=== PATIENT | female | born 1975 | race Caucasian/White ===

== ENCOUNTER → 2016-11-02 | Outpatient (CLI) | payer MEDICARE, OTHER ==
--- NOTE | 2016-11-03 11:45 | MM ---
Reason for exam: screening (asymptomatic). Last mammogram was performed 2 years and 11 months ago. History: Family history of breast cancer in mother and breast cancer in maternal grandmother. Took estrogen for 1 year. Physical Findings: A clinical breast exam by your physician is recommended on an annual basis and results should be correlated with mammographic findings. MG Screening Mammo w CAD Bilateral CC and MLO view(s) were taken. Prior study comparison: December 03, 2013, mammogram, performed at [facility]. September 17, 2009, mammogram, performed at [facility]. No significant changes when compared with prior studies. ASSESSMENT: Benign, BI-RAD 2 RECOMMENDATION: Routine screening mammogram of both breasts in 1 year.
== END | disposition home or self-care (01) ==
LOC: RADMAMWWP 16:35
PROVIDERS: ATTEND Obstetrics & Gynecology
DX: Z12.31 Encounter for screening mammogram for malignant neoplasm of breast (principal)

== ENCOUNTER → 2017-02-23 | Outpatient (CLI) | payer MEDICARE ==
--- NOTE | 2017-02-23 17:16 | XR ---
EXAMINATION TYPE: XR KUB DATE OF EXAM: 02/23/2017 CLINICAL DATA: 41-year-old female hydronephrosis left-sided ureteral/renal stone., [facility] COMPARISON: 08/24/2013 FINDINGS: There is a 1 cm calcific density projecting at the left paramedian mid abdomen at the L3 level which appears to have been present in 2013 as well. This could represent a persisting or new calcification. Phlebolith within the right hemipelvis. Nonobstructive bowel gas pattern. IMPRESSION: A 1 cm calcification in the left midabdomen appears to have been present in 2013 as well. Exact etiol ogy unclear. Recurrent left ureteral calculus versus other nonspecific calcification are possible.
== END ==
LOC: RADXRMAIN 15:12
PROVIDERS: ATTEND Urology
DX: N13.2 Hydronephrosis with renal and ureteral calculous obstruction (principal)
CPT/HCPCS: 74000

== ENCOUNTER 2017-03-07 20:10 | Emergency (ER) | payer MEDICARE ==
[2017-03-07] MEDS ORDERED: HYDROmorphone 1 MG/ML 1 ML SYRINGE IVP STA ×2 (20:27→22:15)
[2017-03-07] MEDS ORDERED: ONDANSETRON 4 MG/2 ML VIAL IVP STA (20:27)
[2017-03-07] MEDS ORDERED: SODIUM CHLORIDE 0.9% 1,000 ML IV STA (20:27)
[2017-03-07] MEDS ORDERED: KETOROLAC 30 MG/ML 1 ML VIAL IVP STA (20:27)
[2017-03-07 21:19] LABS: Basophils # (A) 0.1 k/uL (0-0.2); Basophils % (A) 1 %; CH 32.2; CHCM 35.2; Eosinophils # (A) 0.5 k/uL (0-0.7); Eosinophils % (A) 6 %; HCT 41.7 % (34.0-46.0); HDW 2.23; Luc # (Auto) 0.15; Luc % (Auto) 2; Lymphocytes # (A) 1.8 k/uL (1.0-4.8); Lymphocytes % (A) 20 %; MCH 33.1 pg (25.0-35.0); Mean Platelet Volume 7.7; Monocytes # (A) 0.6 k/uL (0-1.0); Monocytes % (A) 7 %; Neutrophils # (A) 5.7 k/uL (1.3-7.7); Neutrophils % (A) 65 %; RBC 4.54 m/uL (3.80-5.40); RDW 12.4 % (11.5-15.5); WBC 8.8 k/uL (3.8-10.6); WBC (Perox) 7.95
[2017-03-07 21:20] LABS: Appearance,Urine Clear (Clear); Bilirubin,Urine Negative (Negative); Glucose,Urine (UA) Negative (Negative); Ketones,Urine Negative (Negative); Leukocyte Esterase,Urine Negative (Negative); Nitrite,Urine Negative (Negative); Protein,Urine Negative (Negative); Specific Gravity,Urine 1.001 (1.001-1.035); UA Billing (MACRO vs. MICRO) CHEM; Urobilinogen,Urine <2.0 mg/dL (<2.0)
[2017-03-07 21:34] LABS: ALT 34 U/L (9-52); AST 29 U/L (14-36); Alkaline Phosphatase 74 U/L (38-126); Amylase 92 U/L (30-110); Anion Gap 13 mmol/L; Blood Urea Nitrogen 16 mg/dL (7-17); Carbon Dioxide 27 mmol/L (22-30); Chloride 98 mmol/L (98-107); Glucose 84 mg/dL (74-99); Non-African American GFR(MDRD) >60 (>60 ml/min/1.73 sqM); Potassium 4.2 mmol/L (3.5-5.1); Sodium 138 mmol/L (137-145); Total Bilirubin 0.3 mg/dL (0.2-1.3); Total Protein 7.8 g/dL (6.3-8.2)
--- NOTE | 2017-03-07 21:59 | ED ---
Abdominal Pain HPI - General Chief Complaint: Abdominal Pain Stated Complaint: Poss kidney stone Time Seen by Provider: 03/07/17 20:26 Source: patient, RN notes reviewed Mode of arrival: ambulatory Limitations: no limitations - History of Present Illness Initial Comments: 41-year-old female presented emergency department with chief complaint of left flank pain, mid abdominal pain. Patient states started last few days. She has had some nausea vomiting. Denies any diarrhea, constipation, fever, chills. She has had a history of kidney stones but this feels different. Patient denies any chest pain or shortness of breath. She states nothing seems to make the pains feel better or worse. - Related Data Home Medications Medication Instructions Recorded Confirmed DULoxetine HCL [Cymbalta] 90 mg PO DAILY 10/23/15 03/07/17 Ibuprofen [Motrin] 600 mg PO Q6HR PRN 10/23/15 03/07/17 Leflunomide [Arava] 20 mg PO DAILY 10/23/15 03/07/17 Levothyroxine Sodium [Synthroid] 50 mcg PO DAILY 10/23/15 03/07/17 Pnv,Calcium 72/Iron/Folic Acid 1 tab PO DAILY 10/23/15 03/07/17 [ Plus Tablet] Zolpidem [Ambien] 10 mg PO HS PRN 10/23/15 03/07/17 Chlorzoxazone 500 mg PO DAILY 03/07/17 03/07/17 Hydroxychloroquine Sulfate 200 mg PO BID 03/07/17 03/07/17 [Plaquenil] Loratadine [Claritin] 10 mg PO DAILY 03/07/17 03/07/17 Previous Rx's Medication Instructions Recorded Hydrocodone/Acetaminophen [[place] 1 tab PO Q6HR PRN #20 tab 03/07/17 5-325] Allergies Allergy/AdvReac Type Severity Reaction Status Date / Time codeine Allergy Chest Verified 03/07/17 20:22 Pain, dyspnea,hives Iodinated Contrast Media - Allergy flushed,hot Verified 03/07/17 20:22 Oral and ,nauseated [Iodinated Contrast Media - IV Dye] Review of Systems ROS Statement: Those systems with pertinent positive or pertinent negative responses have been documented in the HPI. ROS Other: All systems not noted in ROS Statement are negative. Past Medical History Past Medical History: Fibromyalgia, Rheumatoid Arthritis (RA) Additional Past Medical History / Comment(s): hx kidney stones History of Any Multi-Drug Resistant Organisms: None Reported Past Surgical History: Ablation Additional Past Surgical History / Comment(s): uterine ablation Past Psychological History: No Psychological Hx Reported Smoking Status: Current every day smoker Past Alcohol Use History: None Reported Past Drug Use History: None Reported General Exam Limitations: no limitations General appearance: alert, in no apparent distress Neck exam: Present: normal inspection. Absent: tenderness, meningismus, lymphadenopathy Respiratory exam: Present: normal lung sounds bilaterally. Absent: respiratory distress, wheezes, rales, rhonchi, stridor Cardiovascular Exam: Present: normal rhythm, tachycardia, normal heart sounds. Absent: systolic murmur, diastolic murmur, rubs, gallop, clicks GI/Abdominal exam: Present: soft, tenderness (Moderate midabdominal tenderness, left-sided abdominal tenderness), normal bowel sounds. Absent: distended, guarding, rebound, rigid Back exam: Absent: CVA tenderness (R), CVA tenderness (L) Neurological exam: Present: alert, oriented X3, CN II-XII intact Skin exam: Present: warm, dry, intact, normal color. Absent: rash Course Vital Signs 03/07/17 03/07/17 20:19 21:42 Temperature 98.4 F 97.9 F Pulse Rate 106 H 91 Respiratory 18 18 Rate Blood Pressure 133/97 114/64 O2 Sat by Pulse 97 95 Oximetry Medical Decision Making - Medical Decision Making 41-year-old female presented emergency department for left flank pain. Patient does have a left proximal ureter which is 1 cm. Patient does have urologist. Patient be discharged with pain medication. She is advised to call him in the morning for close follow-up as she most likely needs lithotripsy. Patient agrees this plan. Patient has improved after pain medication. - Lab Data Result diagrams: 03/07/17 20:58 03/07/17 20:58 Lab Results 03/07/17 03/07/17 03/07/17 Range/Units 20:58 20:58 20:58 WBC 8.8 (3.8-10.6) k/uL RBC 4.54 (3.80-5.40) m/uL Hgb 15.0 (11.4-16.0) gm/dL Hct 41.7 (34.0-46.0) % MCV 92.0 (80.0-100.0) fL MCH 33.1 (25.0-35.0) pg MCHC 36.0 (31.0-37.0) g/dL RDW 12.4 (11.5-15.5) % Plt Count 302 (150-450) k/uL Neutrophils % 65 % Lymphocytes % 20 % Monocytes % 7 % Eosinophils % 6 % Basophils % 1 % Neutrophils # 5.7 (1.3-7.7) k/uL Lymphocytes # 1.8 (1.0-4.8) k/uL Monocytes # 0.6 (0-1.0) k/uL Eosinophils # 0.5 (0-0.7) k/uL Basophils # 0.1 (0-0.2) k/uL Sodium 138 (137-145) mmol/L Potassium 4.2 (3.5-5.1) mmol/L Chloride 98 (98-107) mmol/L Carbon Dioxide 27 (22-30) mmol/L Anion Gap 13 mmol/L BUN 16 (7-17) mg/dL Creatinine 0.71 (0.52-1.04) mg/dL Est GFR (MDRD) Af Amer >60 (>60 ml/min/1.73 sqM) Est GFR (MDRD) Non-Af >60 (>60 ml/min/1.73 sqM) Glucose 84 (74-99) mg/dL Calcium 10.0 (8.4-10.2) mg/dL Total Bilirubin 0.3 (0.2-1.3) mg/dL AST 29 (14-36) U/L ALT 34 (9-52) U/L Alkaline Phosphatase 74 (38-126) U/L Total Protein 7.8 (6.3-8.2) g/dL Albumin 4.7 (3.5-5.0) g/dL Amylase 92 (30-110) U/L Lipase 377 H (23-300) U/L Urine Color Urine Appearance (Clear) Urine pH (5.0-8.0) Ur Specific [place] (1.001-1.035) Urine Protein (Negative) Urine Glucose (UA) (Negative) Urine Ketones (Negative) Urine Blood (Negative) Urine Nitrite (Negative) Urine Bilirubin (Negative) Urine Urobilinogen (<2.0) mg/dL Ur Leukocyte Esterase (Negative) Urine HCG, Qual Not Detected (Not Detectd) 03/07/17 Range/Units 20:58 WBC (3.8-10.6) k/uL RBC (3.80-5.40) m/uL Hgb (11.4-16.0) gm/dL Hct (34.0-46.0) % MCV (80.0-100.0) fL MCH (25.0-35.0) pg MCHC (31.0-37.0) g/dL RDW (11.5-15.5) % Plt Count (150-450) k/uL Neutrophils % % Lymphocytes % % Monocytes % % Eosinophils % % Basophils % % Neutrophils # (1.3-7.7) k/uL Lymphocytes # (1.0-4.8) k/uL Monocytes # (0-1.0) k/uL Eosinophils # (0-0.7) k/uL Basophils # (0-0.2) k/uL Sodium (137-145) mmol/L Potassium (3.5-5.1) mmol/L Chloride (98-107) mmol/L Carbon Dioxide (22-30) mmol/L Anion Gap mmol/L BUN (7-17) mg/dL Creatinine (0.52-1.04) mg/dL Est GFR (MDRD) Af Amer (>60 ml/min/1.73 sqM) Est GFR (MDRD) Non-Af (>60 ml/min/1.73 sqM) Glucose (74-99) mg/dL Calcium (8.4-10.2) mg/dL Total Bilirubin (0.2-1.3) mg/dL AST (14-36) U/L ALT (9-52) U/L Alkaline Phosphatase (38-126) U/L Total Protein (6.3-8.2) g/dL Albumin (3.5-5.0) g/dL Amylase (30-110) U/L Lipase (23-300) U/L Urine Color Colorless Urine Appearance Clear (Clear) Urine pH 7.0 (5.0-8.0) Ur Specific [place] 1.001 (1.001-1.035) Urine Protein Negative (Negative) Urine Glucose (UA) Negative (Negative) Urine Ketones Negative (Negative) Urine Blood Negative (Negative) Urine Nitrite Negative (Negative) Urine Bilirubin Negative (Negative) Urine Urobilinogen <2.0 (<2.0) mg/dL Ur Leukocyte Esterase Negative (Negative) Urine HCG, Qual (Not Detectd) Disposition Clinical Impression: Left flank pain, Ureteral calculi Disposition: HOME SELF-CARE Condition: Stable Instructions: Kidney Stones (ED) Additional Instructions: Please return to the Emergency Department if symptoms worsen or any other concerns. Prescriptions: Hydrocodone/Acetaminophen [[place] 5-325] 1 tab PO Q6HR PRN #20 tab PRN Reason: Pain Referrals: María Elena Dunham MD [Primary Care Provider] - 1-2 days David Teixeira MD [STAFF PHYSICIAN] - 1-2 days Time of Disposition: 22:38
--- NOTE | 2017-03-07 22:13 | CT ---
EXAMINATION TYPE: CT abdomen pelvis wo con DATE OF EXAM: 03/07/2017 COMPARISON: NONE HISTORY: LEFT FLANK PAIN. CT DLP: 718.4 mGycm Automated exposure control for dose reduction was used. TECHNIQUE: Helical acquisition of images from the lung bases through the pelvis. FINDINGS: LUNG BASES: No significant abnormality is appreciated. AORTA: No significant abnormality is appreciated. LIVER/GB: No significant abnormality is appreciated. PANCREAS: No significant abnormality is seen. SPLEEN: No significant abnormality is seen. ADRENALS: No significant abnormality is seen. KIDNEYS: Proximal left ureteral calculus is present measuring approximately 13 by 10 mm in size. Mild dilation of the left renal collecting system. REPRODUCTIVE ORGANS: No significant abnormality is seen. URINARY BLADDER: No significant abnormality is seen. BOWEL: No significant abnormality is seen. FREE AIR: No Free Air is visible. ASCITES: None visible. PELVIC ADENOPATHY: None visualized. RETROPERITONEAL ADENOPATHY: No Retroperitoneal Adenopathy visible. OSSEOUS STRUCTURES: No significant abnormality is seen. IMPRESSION: PROXIMAL LEFT URETERAL CALCULUS DESCRIBED. MILD HYDRONEPHROSIS. NONCONTRAST EXAM MAY LIMIT THE SEN SITIVITY OF THE EXAM.
[2017-03-07 22:37] VITALS: BP 138/65; PULSE 85; RESP 19; TEMP 97.4
== END 2017-03-07 22:53 | disposition home or self-care (01) ==
LOC: EC 20:10
DX: N20.1 Calculus of ureter (principal); R00.0 Tachycardia, unspecified; R11.2 Nausea with vomiting, unspecified; M79.7 Fibromyalgia; M06.9 Rheumatoid arthritis, unspecified; F17.200 Nicotine dependence, unspecified, uncomplicated; Z79.899 Other long term (current) drug therapy; Z88.5 Allergy status to narcotic agent; Z91.041 Radiographic dye allergy status
CPT/HCPCS: 36415; 80053; 82150; 83690; 85025; 81003; 81025; 74176; 99284; 96374; 96375 ×2; 96376; 96361 ×2; J2405; J1885; J1170

== ENCOUNTER → 2017-04-27 | Outpatient (CLI) | payer MEDICARE ==
--- NOTE | 2017-04-28 10:27 | US ---
EXAMINATION TYPE: US kidneys/renal and bladder DATE OF EXAM: 04/27/2017 COMPARISON: CT 2017 CLINICAL HISTORY: R93.4 Hx of Kidney Stones. Pt had left calculi removed February or march 2017 EXAM MEASUREMENTS: Right Kidney: 11.0 x 4.3 x 4.1 cm Left Kidney: 10.8 x 4.4 x 4.2 cm Post Void Residual Volume: 9.2 mL Right Kidney: No hydronephrosis or masses seen Left Kidney: No hydronephrosis or masses seen Bladder: wnl Bilateral Jets seen: Yes Normal Post Void Residual: Yes Urinary bladder is sonolucent. Posterior wall is normal. IMPRESSION: 1. Unremarkable renal ultrasound
== END | disposition home or self-care (01) ==
LOC: RADUSWWP 15:35
PROVIDERS: ATTEND Urology
DX: Z09 Encounter for follow-up examination after completed treatment for conditions other than malignant neoplasm (principal); Z87.448 Personal history of other diseases of urinary system
CPT/HCPCS: 76770

== ENCOUNTER → 2017-09-01 | Outpatient (CLI) | payer MEDICARE | END | disposition home or self-care (01) | LOC: MMGSC 11:56 | PROVIDERS: ATTEND Family Medicine | DX: J32.9 Chronic sinusitis, unspecified (principal) | CPT/HCPCS: 87070 ==

== ENCOUNTER → 2017-09-26 | Outpatient (CLI) | payer MEDICARE ==
--- NOTE | 2017-09-26 18:13 | CT ---
EXAMINATION TYPE: CT sinus wo con DATE OF EXAM: 09/26/2017 COMPARISON: NONE HISTORY: Sinus infections x [address] DLP: 593.6 mGycm. Automated Exposure Control for Dose Reduction was Utilized. TECHNIQUE: CT scan of the sinuses is performed without contrast, axial images are obtained, coronal r eformatted images are also reviewed. FINDINGS: There is bilateral patency of the ostiomeatal complex. There is minimal mucosal thickening in the ethmoid sinus. There is no evidence of an orbital mass. Orbital margins are intact. The maxill a is intact. Maxillary sinuses appear normal. Sphenoid sinus appears normal. The maxilla is intact. F rontal sinuses appear normal. CONCLUSION: There is mild ethmoid sinusitis. Otherwise negative exam.
== END | disposition home or self-care (01) ==
LOC: RADCTMAIN 17:45
PROVIDERS: ATTEND Otolaryngology
DX: J32.2 Chronic ethmoidal sinusitis (principal)
CPT/HCPCS: 70486

== ENCOUNTER 2017-12-08 20:28 | Emergency (ER) | payer MEDICARE ==
[2017-12-08] MEDS ORDERED: MORPHINE SULFATE 4MG/4ML SYRG IV STA (20:50)
[2017-12-08] MEDS ORDERED: SODIUM CHLORIDE 0.9% 1,000 ML IV STA (20:50)
[2017-12-08] MEDS ORDERED: ONDANSETRON 4 MG/2 ML VIAL IVP STA (20:50)
[2017-12-08 21:21] LABS: Appearance,Urine Clear (Clear); Bilirubin,Urine Negative (Negative); Blood,Urine Negative (Negative); Color,Urine Colorless; Glucose,Urine (UA) Negative (Negative); Ketones,Urine Negative (Negative); Leukocyte Esterase,Urine Negative (Negative); Nitrite,Urine Negative (Negative); Protein,Urine Negative (Negative); Specific Gravity,Urine 1.002 (1.001-1.035); Urobilinogen,Urine <2.0 mg/dL (<2.0)
[2017-12-08 21:38] LABS: Amylase 77 U/L (30-110); Anion Gap 14 mmol/L; Calcium 9.7 mg/dL (8.4-10.2); Carbon Dioxide 21 mmol/L (22-30); Chloride 98 mmol/L (98-107); Glucose 78 mg/dL (74-99); Lipase 257 U/L (23-300); Sodium 133 mmol/L (137-145)
[2017-12-08 21:40] LABS: Total Protein 7.9 g/dL (6.3-8.2)
[2017-12-08 21:41] LABS: ALT 22 U/L (9-52); AST 47 U/L (14-36); Albumin 4.6 g/dL (3.5-5.0); Alkaline Phosphatase 61 U/L (38-126); Blood Urea Nitrogen 13 mg/dL (7-17); Potassium 4.8 mmol/L (3.5-5.1); Total Bilirubin 0.6 mg/dL (0.2-1.3)
[2017-12-08 21:47] LABS: Basophils % (A) 0 %; Eosinophils # (A) 0.4 k/uL (0-0.7); Eosinophils % (A) 5 %; HCT 42.8 % (34.0-46.0); HGB 15.1 gm/dL (11.4-16.0); Lymphocytes # (A) 2.3 k/uL (1.0-4.8); Lymphocytes % (A) 25 %; MCH 32.7 pg (25.0-35.0); MCHC 35.4 g/dL (31.0-37.0); MCV 92.3 fL (80.0-100.0); Mean Platelet Volume 8.1; Monocytes # (A) 0.7 k/uL (0-1.0); Monocytes % (A) 7 %; Neutrophils # (A) 5.8 k/uL (1.3-7.7); Neutrophils % (A) 62 %; Platelet Count 181 k/uL (150-450); RBC 4.64 m/uL (3.80-5.40); RDW 11.7 % (11.5-15.5); WBC 9.3 k/uL (3.8-10.6)
--- NOTE | 2017-12-08 21:48 | ED ---
General Adult HPI - General Chief complaint: Abdominal Pain Stated complaint: Flank pain Time Seen by Provider: 12/08/17 20:44 Source: patient, RN notes reviewed, old records reviewed Mode of arrival: ambulatory Limitations: no limitations - History of Present Illness Initial comments: 42-year-old female with a history of kidney stones presents to the emergency department for a chief complaint of left flank pain x 2 days. Patient states it is a sharp stabbing pain in her left flank and radiates around to her groin. Patient states she does not want to sit or lay in the bed but would rather stand due to the pain. Patient states she is nauseous but has not vomited. Patient denies urinary symptoms such as pain or burning with urination. Patient 's last bowel movement was yesterday and was of normal consistency. Patient denies any constipation or diarrhea. Patient states she has been passing gas normally. Patient denies abdominal pain. Patient states she had a kidney stone last year and her symptoms were very similar. She believes she has another stone. Patient denies any fevers at home. Patient also has a history of fibromyalgia and rheumatoid arthritis. Patient denies any other complaints at this time such as shortness of breath, chest pain. - Related Data Home Medications Medication Instructions Recorded Confirmed DULoxetine HCL [Cymbalta] 90 mg PO DAILY 10/23/15 12/08/17 Ibuprofen [Motrin] 600 mg PO Q6HR PRN 10/23/15 12/08/17 Leflunomide [Arava] 20 mg PO DAILY 10/23/15 12/08/17 Levothyroxine Sodium [Synthroid] 50 mcg PO DAILY 10/23/15 12/08/17 Pnv,Calcium 72/Iron/Folic Acid 1 tab PO DAILY 10/23/15 12/08/17 [ Plus Tablet] Zolpidem [Ambien] 10 mg PO HS PRN 10/23/15 12/08/17 Chlorzoxazone [Parafon Forte DSC] 500 mg PO DAILY 03/07/17 12/08/17 Hydroxychloroquine Sulfate 200 mg PO BID 03/07/17 12/08/17 [Plaquenil] Loratadine [Claritin] 10 mg PO DAILY 03/07/17 12/08/17 Previous Rx's Medication Instructions Recorded HYDROcodone/APAP 5-325MG [[place] 1 tab PO Q6HR PRN #12 tab 12/08/17 5-325] Ibuprofen [Motrin] 600 mg PO Q8HR PRN #20 tab 12/08/17 Ondansetron HCl [Zofran] 4 mg PO Q8HR PRN #14 tablet 12/08/17 Tamsulosin [Flomax] 0.4 mg PO DAILY #20 cap 12/08/17 Allergies Allergy/AdvReac Type Severity Reaction Status Date / Time codeine Allergy Chest Verified 12/08/17 20:56 Pain, dyspnea,hives Iodinated Contrast- Oral and Allergy flushed,hot Verified 12/08/17 20:56 IV Dye ,nauseated [Iodinated Contrast Media - IV Dye] Review of Systems ROS Statement: Those systems with pertinent positive or pertinent negative responses have been documented in the HPI. ROS Other: All systems not noted in ROS Statement are negative. Past Medical History Past Medical History: Fibromyalgia, Rheumatoid Arthritis (RA) Additional Past Medical History / Comment(s): hx kidney stones History of Any Multi-Drug Resistant Organisms: None Reported Past Surgical History: Ablation Additional Past Surgical History / Comment(s): uterine ablation Past Psychological History: No Psychological Hx Reported Smoking Status: Current every day smoker Past Alcohol Use History: None Reported Past Drug Use History: None Reported General Exam Limitations: no limitations Neck exam: Present: normal inspection, full ROM. Absent: tenderness, meningismus, lymphadenopathy Respiratory exam: Present: normal lung sounds bilaterally. Absent: respiratory distress, wheezes, rales, rhonchi, stridor Cardiovascular Exam: Present: regular rate, normal rhythm, normal heart sounds. Absent: systolic murmur, diastolic murmur, rubs, gallop, clicks GI/Abdominal exam: Present: soft, normal bowel sounds. Absent: distended, tenderness (No tenderness to all 4 quadrants of the abdomen as well as the suprapubic area. Negative Melendez sign, psoas sign, obturator sign, and Rovsing sign.), guarding, rebound, rigid Back exam: Present: full ROM (Patient has full flexion, extension of the lumbar spine.), CVA tenderness (L). Absent: tenderness (No tenderness in the spine.), CVA tenderness (R), paraspinal tenderness Neurological exam: Present: alert, oriented X3 Course Vital Signs 12/08/17 12/08/17 20:31 22:17 Temperature 97.5 F L 98.2 F Pulse Rate 100 80 Respiratory 20 18 Rate Blood Pressure 117/81 126/81 O2 Sat by Pulse 100 95 Oximetry Medical Decision Making - Medical Decision Making 42-year-old female presents to the emergency department for a chief complaint of left flank pain. Patient states this started yesterday. Patient states it is similar to last year when she had a kidney stone. Patient is nauseous but has not vomited. Patient describes the pain as beginning in her left lower back and radiating around to her abdomen. Patient denies pain in her abdomen. Patient denies any urinary symptoms. No fevers at home or in the emergency department. Temp 97.5, pulse 100, respirations 20, blood pressure 117/81, pulse ox 100. Patient was given morphine and treated in the emergency department which helped with the pain and her nausea. CBC and CMP unremarkable. UA is within normal limits. KUB x-ray shows nonacute abdomen. No pathological lesions over the kidneys. Fecal pattern is normal with no sign of intestinal obstruction or pneumoperitoneum. CT noncontrast abdomen and pelvis shows a tiny left renal calculus. There is some fullness of the left and right renal pelvis that is probably due to previous obstruction. This patient's symptoms are consistent with a kidney stone it is possible that she has passed a stone. CT was reviewed with Dr. Harp. Patient will be treated for renal colic. When asked, patient states she tolerates morphine well. She was given morphine, Toradol, Zofran, and IV Fluids in the emergency department. After this, patient states she is feeling much better and agrees to monitor at home. She will be given ibuprofen for pain control and [place] for break through pain. She was also given Zofran and Flomax. Patient is established with Dr. Teixeira. She states she will follow-up with her primary care provider as well as Dr. Teixeira. She will return to the emergency Department if she has any worsening symptoms. - Lab Data Result diagrams: 12/08/17 21:10 12/08/17 21:10 Lab Results 12/08/17 12/08/17 12/08/17 Range/Units 21:10 21:10 21:10 WBC 9.3 (3.8-10.6) k/uL RBC 4.64 (3.80-5.40) m/uL Hgb 15.1 (11.4-16.0) gm/dL Hct 42.8 (34.0-46.0) % MCV 92.3 (80.0-100.0) fL MCH 32.7 (25.0-35.0) pg MCHC 35.4 (31.0-37.0) g/dL RDW 11.7 (11.5-15.5) % Plt Count 181 (150-450) k/uL Neutrophils % 62 % Lymphocytes % 25 % Monocytes % 7 % Eosinophils % 5 % Basophils % 0 % Neutrophils # 5.8 (1.3-7.7) k/uL Lymphocytes # 2.3 (1.0-4.8) k/uL Monocytes # 0.7 (0-1.0) k/uL Eosinophils # 0.4 (0-0.7) k/uL Basophils # 0.0 (0-0.2) k/uL Sodium 133 L (137-145) mmol/L Potassium 4.8 (3.5-5.1) mmol/L Chloride 98 (98-107) mmol/L Carbon Dioxide 21 L (22-30) mmol/L Anion Gap 14 mmol/L BUN 13 (7-17) mg/dL Creatinine 0.60 (0.52-1.04) mg/dL Est GFR (CKD-EPI)AfAm >90 (>60 ml/min/1.73 sqM) Est GFR (CKD-EPI)NonAf >90 (>60 ml/min/1.73 sqM) Glucose 78 (74-99) mg/dL Plasma Lactic Acid [place] (0.7-2.0) mmol/L Calcium 9.7 (8.4-10.2) mg/dL Total Bilirubin 0.6 (0.2-1.3) mg/dL AST 47 H (14-36) U/L ALT 22 (9-52) U/L Alkaline Phosphatase 61 (38-126) U/L Total Protein 7.9 (6.3-8.2) g/dL Albumin 4.6 (3.5-5.0) g/dL Amylase 77 (30-110) U/L Lipase 257 (23-300) U/L HCG, Qual Not Detected Urine Color Colorless Urine Appearance Clear (Clear) Urine pH 6.0 (5.0-8.0) Ur Specific [place] 1.002 (1.001-1.035) Urine Protein Negative (Negative) Urine Glucose (UA) Negative (Negative) Urine Ketones Negative (Negative) Urine Blood Negative (Negative) Urine Nitrite Negative (Negative) Urine Bilirubin Negative (Negative) Urine Urobilinogen <2.0 (<2.0) mg/dL Ur Leukocyte Esterase Negative (Negative) Urine HCG, Qual (Not Detectd) 12/08/17 12/08/17 Range/Units 21:10 21:15 WBC (3.8-10.6) k/uL RBC (3.80-5.40) m/uL Hgb (11.4-16.0) gm/dL Hct (34.0-46.0) % MCV (80.0-100.0) fL MCH (25.0-35.0) pg MCHC (31.0-37.0) g/dL RDW (11.5-15.5) % Plt Count (150-450) k/uL Neutrophils % % Lymphocytes % % Monocytes % % Eosinophils % % Basophils % % Neutrophils # (1.3-7.7) k/uL Lymphocytes # (1.0-4.8) k/uL Monocytes # (0-1.0) k/uL Eosinophils # (0-0.7) k/uL Basophils # (0-0.2) k/uL Sodium (137-145) mmol/L Potassium (3.5-5.1) mmol/L Chloride (98-107) mmol/L Carbon Dioxide (22-30) mmol/L Anion Gap mmol/L BUN (7-17) mg/dL Creatinine (0.52-1.04) mg/dL Est GFR (CKD-EPI)AfAm (>60 ml/min/1.73 sqM) Est GFR (CKD-EPI)NonAf (>60 ml/min/1.73 sqM) Glucose (74-99) mg/dL Plasma Lactic Acid [place] 0.7 (0.7-2.0) mmol/L Calcium (8.4-10.2) mg/dL Total Bilirubin (0.2-1.3) mg/dL AST (14-36) U/L ALT (9-52) U/L Alkaline Phosphatase (38-126) U/L Total Protein (6.3-8.2) g/dL Albumin (3.5-5.0) g/dL Amylase (30-110) U/L Lipase (23-300) U/L HCG, Qual Urine Color Urine Appearance (Clear) Urine pH (5.0-8.0) Ur Specific [place] (1.001-1.035) Urine Protein (Negative) Urine Glucose (UA) (Negative) Urine Ketones (Negative) Urine Blood (Negative) Urine Nitrite (Negative) Urine Bilirubin (Negative) Urine Urobilinogen (<2.0) mg/dL Ur Leukocyte Esterase (Negative) Urine HCG, Qual Not Detected (Not Detectd) Disposition Clinical Impression: Renal colic on left side Disposition: HOME SELF-CARE Condition: Good Instructions: Kidney Stones (ED), How to Strain Your Urine (ED) Additional Instructions: Please take ibuprofen for pain starting tomorrow. If pain is severe please take [place]. You may take Zofran for nausea. Please take Flomax. Please return to the emergency department if you have any worsening symptoms. Otherwise follow-up with primary care provider or Dr. Teixeira in 1-2 days as discussed. Prescriptions: HYDROcodone/APAP 5-325MG [[place] 5-325] 1 tab PO Q6HR PRN #12 tab PRN Reason: Pain Ibuprofen [Motrin] 600 mg PO Q8HR PRN #20 tab PRN Reason: Pain Ondansetron HCl [Zofran] 4 mg PO Q8HR PRN #14 tablet PRN Reason: Nausea Tamsulosin [Flomax] 0.4 mg PO DAILY #20 cap Referrals: María Elena Dunham MD [Primary Care Provider] - 1-2 days Time of Disposition: 23:25
[2017-12-08 22:02] LABS: HCG,Qualitative Serum Not Detected
[2017-12-08] MEDS ORDERED: KETOROLAC 30 MG/ML 1 ML VIAL IVP STA (22:17)
[2017-12-08 22:18] VITALS: RESP 18; TEMP 98.2
--- NOTE | 2017-12-08 22:23 | XR ---
EXAMINATION TYPE: XR KUB DATE OF EXAM: 12/08/2017 COMPARISON: 02/23/2017 HISTORY: Abdominal pain TECHNIQUE: 2 views FINDINGS: There is no sign of intestinal obstruction or pneumoperitoneum. Fecal pattern is normal. Th ere are no pathologic calcifications over the kidneys. Lung bases are clear. IMPRESSION: Nonacute abdomen. There is clearing of the left side calculus at the L3 level compared to old exam.
--- NOTE | 2017-12-08 22:52 | CT ---
EXAMINATION TYPE: CT abdomen pelvis wo con DATE OF EXAM: 12/08/2017 COMPARISON: 03/07/2017 HISTORY: Left flank pain, hx of kidney stones CT DLP: 647.6 mGycm Automated exposure control for dose reduction was used. TECHNIQUE: Helical acquisition of images was performed from the lung bases through the pelvis. FINDINGS: Lung bases are clear. There is no pleural effusion. There is no pericardial effusion. Liver spleen pancreas gallbladder appear normal. Bile ducts are not dilated. There is no adrenal mass . Kidneys have normal size. I see no definite ureteral calculus. Ureters do not appear dilated. There is slight fullness of both renal collecting systems however. There is a 2 mm calcification in the lo wer pole left kidney. There is no retroperitoneal adenopathy. There is no ascites. I see no intestinal wall thickening. The re are no dilated loops. Bladder distends smoothly. There is no sign of a pelvic mass. Uterus is ante verted. Lumbar spine is intact. Appendix appears normal. I see no intestinal wall thickening. There are no dilated loops. IMPRESSION: TINY LEFT RENAL CALCULUS. THERE IS SOME FULLNESS OF THE LEFT AND RIGHT RENAL PELVIS THAT IS PROBABLY DUE TO PREVIOUS OBSTRUCTION. THERE IS CLEARING OF THE LARGE CALCULUS AT THE LEFT URETEROPELVIC JUNCTI ON COMPARED TO OLD EXAM. I SEE NO DEFINITE URETERAL STONE. NORMAL APPENDIX. THERE IS A 5 MM CALCIFICATION ON AXIAL IMAGE 102 THAT I THINK IS A PHLEBOLITH AND UNCHANGED COMPARED TO OLD EXAM ADJACENT TO THE LEFT PSOAS MUSCLE.
[2017-12-08] MEDS ORDERED: MORPHINE SULFATE 4MG/4ML SYRG IVP STA (23:17)
[2017-12-08 23:32] VITALS: BP 136/84; PULSE 82
== END 2017-12-08 23:48 | disposition home or self-care (01) ==
LOC: EC 20:28
DX: N23 Unspecified renal colic (principal); N20.0 Calculus of kidney; M06.9 Rheumatoid arthritis, unspecified; F17.200 Nicotine dependence, unspecified, uncomplicated; Z79.899 Other long term (current) drug therapy; Z88.5 Allergy status to narcotic agent; Z91.041 Radiographic dye allergy status
CPT/HCPCS: 99284; 96374; 96375 ×2; 96376; 96361 ×2; 36415; 80053; 82150; 83605; 83690; 85025; 81003; 81025; 84703; 87040; 87086; 74018; 74176; J2405; J1885; J2270

== ENCOUNTER → 2017-12-22 | Outpatient (CLI) | payer MEDICARE | END | disposition home or self-care (01) | LOC: MMGSC 15:59 | PROVIDERS: ATTEND Family Medicine | DX: R31.9 Hematuria, unspecified (principal); R82.90 Unspecified abnormal findings in urine | CPT/HCPCS: 87086 ==

== ENCOUNTER 2018-05-19 08:16 | Emergency (ER) | payer MEDICARE ==
[2018-05-19] MEDS ORDERED: ONDANSETRON 4 MG/2 ML VIAL IVP STA ×2 (08:28→10:29)
[2018-05-19] MEDS ORDERED: SODIUM CHLORIDE 0.9% 1,000 ML IV STA (08:28)
[2018-05-19] MEDS ORDERED: HYDROmorphone 0.5 MG/0.5 ML SYRINGE IVP STA ×2 (08:28→11:18)
--- NOTE | 2018-05-19 08:39 | ED ---
General Adult HPI - General Chief complaint: Abdominal Pain Stated complaint: abd pain Time Seen by Provider: 05/19/18 08:23 Source: patient, RN notes reviewed Mode of arrival: ambulatory Limitations: no limitations - History of Present Illness Initial comments: Patient's a 42-year-old female presented to the emergency room today with chief complaint of abdominal pain times one day. She states that symptoms started 6 PM yesterday after dinner. Patient does admit to pain on the left side. Describes it as sharp. States does radiate to the back. Patient doesn't feeling nauseated. Doesn't to 3 episodes diarrhea. Denies any signs of blood in the stool. Denies any other complaints or symptoms currently. Patient denies any recent fever, chills, shortness of breath, chest pain, back pain, vomiting, numbness or tingling, dysuria or hematuria, headaches or visual changes, or any other complaints. - Related Data Home Medications Medication Instructions Recorded Confirmed DULoxetine HCL [Cymbalta] 90 mg PO DAILY 10/23/15 12/08/17 Ibuprofen [Motrin] 600 mg PO Q6HR PRN 10/23/15 12/08/17 Leflunomide [Arava] 20 mg PO DAILY 10/23/15 12/08/17 Levothyroxine Sodium [Synthroid] 50 mcg PO DAILY 10/23/15 12/08/17 Pnv,Calcium 72/Iron/Folic Acid 1 tab PO DAILY 10/23/15 12/08/17 [ Plus Tablet] Zolpidem [Ambien] 10 mg PO HS PRN 10/23/15 12/08/17 Chlorzoxazone [Parafon Forte DSC] 500 mg PO DAILY 03/07/17 12/08/17 Hydroxychloroquine Sulfate 200 mg PO BID 03/07/17 12/08/17 [Plaquenil] Loratadine [Claritin] 10 mg PO DAILY 03/07/17 12/08/17 Previous Rx's Medication Instructions Recorded HYDROcodone/APAP 5-325MG [[place] 1 tab PO Q6HR PRN #12 tab 12/08/17 5-325] Ibuprofen [Motrin] 600 mg PO Q8HR PRN #20 tab 12/08/17 Ondansetron HCl [Zofran] 4 mg PO Q8HR PRN #14 tablet 12/08/17 Tamsulosin [Flomax] 0.4 mg PO DAILY #20 cap 12/08/17 Dicyclomine [Bentyl] 20 mg PO QID #20 tablet 05/19/18 Ondansetron Odt [Zofran ODT] 4 mg PO Q8HR PRN #20 tab 05/19/18 Allergies Allergy/AdvReac Type Severity Reaction Status Date / Time codeine Allergy Chest Verified 05/19/18 08:19 Pain, dyspnea,hives Iodinated Contrast- Oral and Allergy flushed,hot Verified 05/19/18 08:19 IV Dye ,nauseated [Iodinated Contrast Media - IV Dye] Review of Systems ROS Statement: Those systems with pertinent positive or pertinent negative responses have been documented in the HPI. ROS Other: All systems not noted in ROS Statement are negative. Past Medical History Past Medical History: Fibromyalgia, Rheumatoid Arthritis (RA) Additional Past Medical History / Comment(s): hx kidney stones History of Any Multi-Drug Resistant Organisms: None Reported Past Surgical History: Ablation Additional Past Surgical History / Comment(s): uterine ablation Past Psychological History: No Psychological Hx Reported Smoking Status: Current every day smoker Past Alcohol Use History: None Reported Past Drug Use History: None Reported General Exam - General Exam Comments Initial Comments: General: The patient is awake and alert, in no distress, and does not appear acutely ill. Eye: Extra-ocular movements are intact. No nystagmus. There is normal conjunctiva bilaterally. No signs of icterus. Ears, nose, mouth and throat: There are moist mucous membranes and no oral lesions. Neck: The neck is supple, there is no tenderness or JVD. Cardiovascular: There is a regular rate and rhythm. No murmur, rub or gallop is appreciated. Respiratory: Lungs are clear to auscultation, respirations are non-labored, breath sounds are equal. No wheezes, stridor, rales, or rhonchi. Gastrointestinal: Soft on palpation. Patient does have tenderness mildly epigastric and left upper quadrant. No rebound, guarding or CVA tenderness. Musculoskeletal: Normal ROM, no tenderness. Sensation intact. Strength 5/5. Pulses equal bilaterally 2+. Neurological: A&O x 3. CN II-XII intact, There are no obvious motor or sensory deficits. Coordination appears grossly intact. Speech is normal. Skin: Skin is warm and dry and no rashes or lesions are noted. Psychiatric: Cooperative, appropriate mood & affect, normal judgment. Limitations: no limitations Course Vital Signs 05/19/18 08:18 Temperature 97.8 F Pulse Rate 100 Respiratory 20 Rate Blood Pressure 140/78 O2 Sat by Pulse 99 Oximetry Medical Decision Making - Medical Decision Making Patient reexamined at this times still experiencing some discomfort epigastric and left upper quadrant. Patient to get some relief after GI cocktail. Patient x-ray reviewed along with ultrasound showing no acute abnormality. He shouldn't labs been reviewed unremarkable. Patient will continue with Marcy Cordero for symptoms. She is advised follow-up family doctor over the next 2 days. Advised return here to the emergency room if any symptoms increase or worsen or for any other concerns. - Lab Data Result diagrams: 05/19/18 08:17 05/19/18 08:17 Lab Results 05/19/18 05/19/1818 Range/Units 08:17 08:17 08:42 WBC 10.0 (3.8-10.6) k/uL RBC 4.66 (3.80-5.40) m/uL Hgb 15.2 (11.4-16.0) gm/dL Hct 46.1 H (34.0-46.0) % MCV 99.0 (80.0-100.0) fL MCH 32.6 (25.0-35.0) pg MCHC 32.9 (31.0-37.0) g/dL RDW 12.4 (11.5-15.5) % Plt Count 358 (150-450) k/uL Neutrophils % 72 % Lymphocytes % 17 % Monocytes % 6 % Eosinophils % 4 % Basophils % 1 % Neutrophils # 7.3 (1.3-7.7) k/uL Lymphocytes # 1.7 (1.0-4.8) k/uL Monocytes # 0.6 (0-1.0) k/uL Eosinophils # 0.4 (0-0.7) k/uL Basophils # 0.1 (0-0.2) k/uL Sodium 141 (137-145) mmol/L Potassium 4.4 (3.5-5.1) mmol/L Chloride 104 (98-107) mmol/L Carbon Dioxide 25 (22-30) mmol/L Anion Gap 12 mmol/L BUN 4 L (7-17) mg/dL Creatinine 0.64 (0.52-1.04) mg/dL Est GFR (CKD-EPI)AfAm >90 (>60 ml/min/1.73 sqM) Est GFR (CKD-EPI)NonAf >90 (>60 ml/min/1.73 sqM) Glucose 108 H (74-99) mg/dL Calcium 9.7 (8.4-10.2) mg/dL Total Bilirubin 0.2 (0.2-1.3) mg/dL AST 30 (14-36) U/L ALT 27 (9-52) U/L Alkaline Phosphatase 66 (38-126) U/L Total Protein 7.6 (6.3-8.2) g/dL Albumin 4.4 (3.5-5.0) g/dL Amylase 79 (30-110) U/L Lipase 275 (23-300) U/L Urine Color Light Yellow Urine Appearance Clear (Clear) Urine pH 6.0 (5.0-8.0) Ur Specific [place] 1.003 (1.001-1.035) Urine Protein Negative (Negative) Urine Glucose (UA) Negative (Negative) Urine Ketones Negative (Negative) Urine Blood Negative (Negative) Urine Nitrite Negative (Negative) Urine Bilirubin Negative (Negative) Urine Urobilinogen <2.0 (<2.0) mg/dL Ur Leukocyte Esterase Negative (Negative) Urine HCG, Qual (Not Detectd) 05/19/18 Range/Units 08:42 WBC (3.8-10.6) k/uL RBC (3.80-5.40) m/uL Hgb (11.4-16.0) gm/dL Hct (34.0-46.0) % MCV (80.0-100.0) fL MCH (25.0-35.0) pg MCHC (31.0-37.0) g/dL RDW (11.5-15.5) % Plt Count (150-450) k/uL Neutrophils % % Lymphocytes % % Monocytes % % Eosinophils % % Basophils % % Neutrophils # (1.3-7.7) k/uL Lymphocytes # (1.0-4.8) k/uL Monocytes # (0-1.0) k/uL Eosinophils # (0-0.7) k/uL Basophils # (0-0.2) k/uL Sodium (137-145) mmol/L Potassium (3.5-5.1) mmol/L Chloride (98-107) mmol/L Carbon Dioxide (22-30) mmol/L Anion Gap mmol/L BUN (7-17) mg/dL Creatinine (0.52-1.04) mg/dL Est GFR (CKD-EPI)AfAm (>60 ml/min/1.73 sqM) Est GFR (CKD-EPI)NonAf (>60 ml/min/1.73 sqM) Glucose (74-99) mg/dL Calcium (8.4-10.2) mg/dL Total Bilirubin (0.2-1.3) mg/dL AST (14-36) U/L ALT (9-52) U/L Alkaline Phosphatase (38-126) U/L Total Protein (6.3-8.2) g/dL Albumin (3.5-5.0) g/dL Amylase (30-110) U/L Lipase (23-300) U/L Urine Color Urine Appearance (Clear) Urine pH (5.0-8.0) Ur Specific [place] (1.001-1.035) Urine Protein (Negative) Urine Glucose (UA) (Negative) Urine Ketones (Negative) Urine Blood (Negative) Urine Nitrite (Negative) Urine Bilirubin (Negative) Urine Urobilinogen (<2.0) mg/dL Ur Leukocyte Esterase (Negative) Urine HCG, Qual Not Detected (Not Detectd) Disposition Clinical Impression: Abdominal pain Disposition: HOME SELF-CARE Condition: Good Instructions: Abdominal Pain (ED) Additional Instructions: Please use medication as discussed. Please follow-up with family doctor in the next 2 days of symptoms have not improved. Please return to emergency room if the symptoms increase or worsen or for any other concerns. Prescriptions: Dicyclomine [Bentyl] 20 mg PO QID #20 tablet Ondansetron Odt [Zofran ODT] 4 mg PO Q8HR PRN #20 tab PRN Reason: Nausea Is patient prescribed a controlled substance at d/c from ED?: No Referrals: María Elena Dunham MD [Primary Care Provider] - 1-2 days Time of Disposition: 11:21
[2018-05-19 09:09] LABS: Appearance,Urine Clear (Clear); Bilirubin,Urine Negative (Negative); Blood,Urine Negative (Negative); Color,Urine Light Yellow; Glucose,Urine (UA) Negative (Negative); Ketones,Urine Negative (Negative); Leukocyte Esterase,Urine Negative (Negative); Nitrite,Urine Negative (Negative); Protein,Urine Negative (Negative); Specific Gravity,Urine 1.003 (1.001-1.035); Urobilinogen,Urine <2.0 mg/dL (<2.0)
[2018-05-19 09:17] LABS: Basophils # (A) 0.1 k/uL (0-0.2); Basophils % (A) 1 %; Eosinophils # (A) 0.4 k/uL (0-0.7); Eosinophils % (A) 4 %; HCT 46.1 % (34.0-46.0); HGB 15.2 gm/dL (11.4-16.0); Lymphocytes # (A) 1.7 k/uL (1.0-4.8); Lymphocytes % (A) 17 %; MCH 32.6 pg (25.0-35.0); MCHC 32.9 g/dL (31.0-37.0); Mean Platelet Volume 6.9; Monocytes # (A) 0.6 k/uL (0-1.0); Monocytes % (A) 6 %; Neutrophils # (A) 7.3 k/uL (1.3-7.7); Neutrophils % (A) 72 %; Platelet Count 358 k/uL (150-450); RBC 4.66 m/uL (3.80-5.40); RDW 12.4 % (11.5-15.5)
[2018-05-19 09:20] LABS: ALT 27 U/L (9-52); AST 30 U/L (14-36); Albumin 4.4 g/dL (3.5-5.0); Alkaline Phosphatase 66 U/L (38-126); Amylase 79 U/L (30-110); Anion Gap 12 mmol/L; Blood Urea Nitrogen 4 mg/dL (7-17); Calcium 9.7 mg/dL (8.4-10.2); Carbon Dioxide 25 mmol/L (22-30); Chloride 104 mmol/L (98-107); Glucose 108 mg/dL (74-99); Lipase 275 U/L (23-300); Potassium 4.4 mmol/L (3.5-5.1); Sodium 141 mmol/L (137-145); Total Bilirubin 0.2 mg/dL (0.2-1.3); Total Protein 7.6 g/dL (6.3-8.2)
--- NOTE | 2018-05-19 09:40 | US ---
EXAMINATION TYPE: US abdomen limited DATE OF EXAM: 05/19/2018 COMPARISON: NONE CLINICAL HISTORY: Pain. EXAM MEASUREMENTS: Liver Length: 17.1 cm Gallbladder Wall: 0.3 cm CBD: 0.4 cm Right Kidney: 11.7 x 4.7 x 5.5 cm Limited due to bowel gas. Pancreas: Appears slightly prominent Liver: wnl Gallbladder: Appears slightly contracted Evidence for sonographic Melendez's sign: No CBD: wnl Right Kidney: wnl Limited views of the pancreas are unremarkable. The liver is normal in size without biliary dilatation. The gallbladder is unremarkable without evidence of cholelithiasis. The gallbladder wall measures 3 m m. The distal common hepatic duct measures 4 mm. There is no sonographic Melendez's sign. The right kidney is unremarkable. IMPRESSION: SLIGHT THICKENING OF THE GALLBLADDER WALL MAY BE SECONDARY TO PARTIAL CONTRACTION.
--- NOTE | 2018-05-19 10:17 | XR ---
EXAMINATION TYPE: XR KUB , 2 VIEWS DATE OF EXAM ORDERED: 05/19/2018 HISTORY: abdominal pain. COMPARISON: Previous study dated 12/08/2017. FINDINGS: There is a gentle dextroscoliosis present. The lung bases are clear. Within the abdomen, the abdominal gas pattern is normal. There are scattered air-fluid levels. No unu sual calcifications are seen. IMPRESSION: 1. MILD DEXTROSCOLIOSIS. 2. FINDINGS MAY REFLECT EARLY ILEUS.
[2018-05-19] MEDS ORDERED: MAG HYDROX/AL HYDROX/SIMETH 30 ML, HYOSCYAMINE ELIXIR 10 ML, CIMETIDINE HCL 300 MG, LID... PO STA ×4 (10:30)
[2018-05-19] MEDS ORDERED: DICYCLOMINE 10 MG/ML 2 ML AMP IM STA (11:18)
[2018-05-19 11:39] VITALS: BP 119/69; PULSE 90; RESP 18; TEMP 97.2
== END 2018-05-19 11:39 | disposition home or self-care (01) ==
LOC: EC 08:16
DX: R10.9 Unspecified abdominal pain (principal); R11.0 Nausea; R19.7 Diarrhea, unspecified; M54.9 Dorsalgia, unspecified; M06.9 Rheumatoid arthritis, unspecified; F17.200 Nicotine dependence, unspecified, uncomplicated; Z88.5 Allergy status to narcotic agent; Z91.041 Radiographic dye allergy status; Z79.899 Other long term (current) drug therapy
CPT/HCPCS: 36415; 80053; 82150; 83690; 85025; 81003; 81025; 74018; 76705; 99284; 96374; 96375; 96376 ×2; 96361 ×2; 96372; J0500; J2405; J1170

== ENCOUNTER → 2018-05-29 | Outpatient (CLI) | payer MEDICARE ==
--- NOTE | 2018-05-30 00:37 | MR ---
EXAMINATION TYPE: MR brain and iac wo con DATE OF EXAM: 05/29/2018 COMPARISON: None HISTORY: Hearing loss / Tinnitus right ear Standard multiplanar, multisequence MRI departmental protocol Multiplanar, multisequence images of the brain were acquired. Diffusion weighted imaging was performe d. There are additional images of the posterior fossa. FINDINGS: There is 3 mm focus of increased signal in the white matter right temporal lobe on the FLAI R images. Corpus callosum appears normal. Brainstem appears normal. Sella turcica is normal. There is no mass effect nor midline shift. There is no sign of intracranial hemorrhage. There is mucosal thic kening in the ethmoid sinuses. The internal auditory canals appear normal. There is no evidence of cerebellopontine angle mass. Acou stic and vestibular nerves appear normal. Temporal bones have normal signal pattern. There is no evid ence of mastoiditis. IMPRESSION: Mild ethmoid sinusitis. Single small white matter high signal focus in the right temporal lobe of melodie btful significance. No posterior fossa abnormality seen.
== END | disposition home or self-care (01) ==
LOC: RADMRIMAIN 14:56
PROVIDERS: ATTEND Otolaryngology
DX: H93.11 Tinnitus, right ear (principal); H91.91 Unspecified hearing loss, right ear
CPT/HCPCS: 70551

== ENCOUNTER → 2018-07-17 | Outpatient (CLI) | payer MEDICARE ==
--- NOTE | 2018-07-17 13:42 | CT ---
EXAMINATION TYPE: CT iac wo con DATE OF EXAM: 07/17/2018 COMPARISON: MRI brain and IAC May 29, 2018 HISTORY: Petrous apex lesion right side. Right-sided hearing loss and tinnitus. CT DLP: 202 mGycm. Automated Exposure Control for Dose Reduction was Utilized. TECHNIQUE: CT scan of internal auditory canal is performed without contrast, thin cut axial images ar e obtained, coronal reformatted images are also reviewed. FINDINGS: The external auditory canals are patent bilaterally. Mastoid air cells show no evidence of abnormal opacification bilaterally. The aerated air cells extending into petrous apex bilaterally. The middle ear ossicles are symmetric and unremarkable. There is no evidence of suspicious surroundi ng soft tissue density to suggest cholesteatoma. The scutum is preserved bilaterally. The cochlea a nd the semicircular canals are symmetric and unremarkable. Vestibular aqueduct and internal carotid canal appear unremarkable. Temporomandibular joints are maintained bilaterally. Visualized paranasal sinuses are grossly clear. Visualized portion brain parenchyma is felt within normal limits. IMPRESSION: No significant abnormality seen to account for patient's symptoms. No significant change from recent MRI.
== END ==
LOC: RADCTMAIN 13:20
PROVIDERS: ATTEND Otolaryngology
DX: M89.8X8 Other specified disorders of bone, other site (principal)
CPT/HCPCS: 70480

== ENCOUNTER → 2018-09-18 | Outpatient (CLI) | payer MEDICARE ==
--- NOTE | 2018-09-22 09:16 | MM ---
Reason for exam: screening (asymptomatic). Last mammogram was performed 1 year and 10 months ago. History: Family history of breast cancer in mother and breast cancer in maternal grandmother. Took estrogen for 3 years. MG 3D Screening Mammo W/Cad Bilateral CC and MLO view(s) were taken. Prior study comparison: November 02, 2016, bilateral MG screening mammo w CAD. December 03, 2013, mammogram, performed at [facility]. The breast tissue is heterogeneously dense. This may lower the sensitivity of mammography. No discrete abnormality. No significant changes when compared with prior studies. ASSESSMENT: Negative, BI-RAD 1 RECOMMENDATION: Routine screening mammogram of both breasts in 1 year.
== END | disposition home or self-care (01) ==
LOC: RADMAMWWP 15:20
PROVIDERS: ATTEND Family Medicine
DX: Z12.31 Encounter for screening mammogram for malignant neoplasm of breast (principal)
CPT/HCPCS: 77063; 77067

== ENCOUNTER 2019-01-06 18:58 | Emergency (ER) | payer MEDICARE ==
[2019-01-06 19:06] VITALS: RESP 16; TEMP 98.2
[2019-01-06] MEDS ORDERED: KETOROLAC 60 MG/2 ML VIAL IM STA (19:39)
[2019-01-06] MEDS ORDERED: ONDANSETRON 4 MG/2 ML VIAL IVP STA (19:49)
[2019-01-06 20:23] LABS: Basophils # (A) 0.1 k/uL (0-0.2); Basophils % (A) 1 %; Eosinophils # (A) 0.6 k/uL (0-0.7); Eosinophils % (A) 6 %; HCT 45.3 % (34.0-46.0); HGB 15.1 gm/dL (11.4-16.0); Lymphocytes # (A) 2.1 k/uL (1.0-4.8); Lymphocytes % (A) 19 %; MCHC 33.2 g/dL (31.0-37.0); MCV 96.2 fL (80.0-100.0); Mean Platelet Volume 6.9; Monocytes # (A) 0.7 k/uL (0-1.0); Monocytes % (A) 6 %; Neutrophils # (A) 7.6 k/uL (1.3-7.7); Neutrophils % (A) 68 %; Platelet Count 421 k/uL (150-450); RBC 4.71 m/uL (3.80-5.40); RDW 12.1 % (11.5-15.5); WBC 11.2 k/uL (3.8-10.6)
[2019-01-06] MEDS ORDERED: KETOROLAC 30 MG/ML 1 ML VIAL IVP STA (20:28)
[2019-01-06 20:29] LABS: Appearance,Urine Cloudy (Clear); Bilirubin,Urine Negative (Negative); Blood,Urine Negative (Negative); Color,Urine Light Yellow; Glucose,Urine (UA) Negative (Negative); Ketones,Urine Negative (Negative); Leukocyte Esterase,Urine Negative (Negative); Mucus,Urine Rare /hpf; Nitrite,Urine Negative (Negative); Protein,Urine Negative (Negative); RBC,Urine 1 /hpf (0-5); Specific Gravity,Urine 1.003 (1.001-1.035); Squamous Epithelial Cell,Urine 6 /hpf (0-4); Urobilinogen,Urine <2.0 mg/dL (<2.0)
[2019-01-06 20:31] LABS: ALT 27 U/L (9-52); AST 37 U/L (14-36); Albumin 4.7 g/dL (3.5-5.0); Alkaline Phosphatase 54 U/L (38-126); Amylase 74 U/L (30-110); Anion Gap 8 mmol/L; Blood Urea Nitrogen 9 mg/dL (7-17); Calcium 9.9 mg/dL (8.4-10.2); Carbon Dioxide 27 mmol/L (22-30); Chloride 101 mmol/L (98-107); Glucose 76 mg/dL (74-99); Lipase 217 U/L (23-300); Sodium 136 mmol/L (137-145); Total Bilirubin 0.3 mg/dL (0.2-1.3); Total Protein 7.7 g/dL (6.3-8.2)
--- NOTE | 2019-01-06 20:47 | XR ---
EXAMINATION TYPE: XR KUB DATE OF EXAM: 01/06/2019 COMPARISON: 05/19/2018 HISTORY: Abdominal pain TECHNIQUE: 2 views FINDINGS: 2 views upright were obtained and show no sign of intestinal obstruction or pneumoperitoneu m. Fecal pattern is normal. Lung bases are clear. There are no pathologic calcifications. IMPRESSION: Nonacute abdomen. No change.
[2019-01-06] MEDS ORDERED: HYDROcodone/APAP 5-325MG 1 EACH TAB PO STA (20:51)
--- NOTE | 2019-01-06 20:52 | ED ---
Abdominal Pain HPI - General Source: patient Mode of arrival: ambulatory Limitations: no limitations <Arnel Ordaz - Last Filed: 01/07/19 00:43> <Griselda Carrington - Last Filed: 01/07/19 02:18> - General Chief Complaint: Abdominal Pain Stated Complaint: poss kidney stone Time Seen by Provider: 01/06/19 19:18 - History of Present Illness Initial Comments: Patient is a 43-year-old female presenting to the emergency department with bilateral flank pain. Patient states the pain started a few days ago but it has progressed in severity. Patient reports the pain starts as bilateral flank pain that radiates along the buttocks and ends in the popliteal region. Patient states the pain is 8 and constant. Patient denies fever but does report nausea vomiting. Patient denies any vaginal discharge but does report increased frequency and urgency. Patient denies any abdominal pain, headaches, blurry vision, lightheadedness or dizziness. Patient denies hematuria or hematochezia. Patient states that she has a prior history of kidney stones. (Arnel Ordaz) - Related Data Home Medications Medication Instructions Recorded Confirmed DULoxetine HCL [Cymbalta] 90 mg PO DAILY 10/23/15 12/08/17 Ibuprofen [Motrin] 600 mg PO Q6HR PRN 10/23/15 12/08/17 Leflunomide [Arava] 20 mg PO DAILY 10/23/15 12/08/17 Levothyroxine Sodium [Synthroid] 50 mcg PO DAILY 10/23/15 12/08/17 Pnv,Calcium 72/Iron/Folic Acid 1 tab PO DAILY 10/23/15 12/08/17 [ Plus Tablet] Zolpidem [Ambien] 10 mg PO HS PRN 10/23/15 12/08/17 Chlorzoxazone [Parafon Forte DSC] 500 mg PO DAILY 03/07/17 12/08/17 Hydroxychloroquine Sulfate 200 mg PO BID 03/07/17 12/08/17 [Plaquenil] Loratadine [Claritin] 10 mg PO DAILY 03/07/17 12/08/17 Previous Rx's Medication Instructions Recorded HYDROcodone/APAP 5-325MG [[place] 1 tab PO Q6HR PRN #12 tab 12/08/17 5-325] Ibuprofen [Motrin] 600 mg PO Q8HR PRN #20 tab 12/08/17 Ondansetron HCl [Zofran] 4 mg PO Q8HR PRN #14 tablet 12/08/17 Tamsulosin [Flomax] 0.4 mg PO DAILY #20 cap 12/08/17 Dicyclomine [Bentyl] 20 mg PO QID #20 tablet 05/19/18 Ondansetron Odt [Zofran ODT] 4 mg PO Q8HR PRN #20 tab 05/19/18 Ibuprofen [Motrin] 600 mg PO Q6HR PRN #30 tab 01/07/19 Lidocaine 5% Patch [Lidoderm] 1 patch TOPICAL DAILY #30 patch 01/07/19 Allergies Allergy/AdvReac Type Severity Reaction Status Date / Time codeine Allergy Chest Verified 01/06/19 19:06 Pain, dyspnea,hives Iodinated Contrast- Oral and Allergy flushed,hot Verified 01/06/19 19:06 IV Dye ,nauseated [Iodinated Contrast Media - IV Dye] Review of Systems ROS Other: All systems not noted in ROS Statement are negative. <Arnel Ordaz - Last Filed: 01/07/19 00:43> ROS Other: All systems not noted in ROS Statement are negative. <Griselda Carrington - Last Filed: 01/07/19 02:18> ROS Statement: Those systems with pertinent positive or pertinent negative responses have been documented in the HPI. Past Medical History Past Medical History: Fibromyalgia, Rheumatoid Arthritis (RA) Additional Past Medical History / Comment(s): hx kidney stones History of Any Multi-Drug Resistant Organisms: None Reported Past Surgical History: Ablation Additional Past Surgical History / Comment(s): uterine ablation Past Psychological History: No Psychological Hx Reported Smoking Status: Current every day smoker Past Alcohol Use History: None Reported Past Drug Use History: None Reported <Arnel Ordaz - Last Filed: 01/07/19 00:43> General Exam Limitations: no limitations General appearance: alert, in no apparent distress Head exam: Present: atraumatic, normocephalic, normal inspection <Arnel Ordaz - Last Filed: 01/07/19 00:43> Course Vital Signs 01/06/19 01/07/19 19:04 01:14 Temperature 98.2 F Pulse Rate 95 87 Respiratory 16 16 Rate Blood Pressure 127/82 141/79 O2 Sat by Pulse 100 96 Oximetry Medical Decision Making - Lab Data Result diagrams: 01/06/19 20:00 01/06/19 20:00 <Arnel Ordaz - Last Filed: 01/07/19 00:43> - Lab Data Result diagrams: 01/06/19 20:00 01/06/19 20:00 <Griselda Carrington - Last Filed: 01/07/19 02:18> - Medical Decision Making Patient is a 43-year-old female presenting to emergency Department with bilateral flank pain. CBC, CMP and UA were obtained. UA is negative for urinary tract infection. KUB is unremarkable for acute abdomen. ultrasound is unremarkable kidney stones. (Arnel Ordaz) I personally saw and evaluated the patient. Lab, x-ray, ultrasound and CT results were reviewed. When I evaluated the patient she complained of pain in the left side radiating down her left buttock to her mid thigh. Pain was sharp in nature. Patient is being treated for urinary tract infection however her urine today has no signs of infection. Physical exam is unremarkable he patient has a normal gait she is able to ambulate to the restroom she has no anesthesia no urinary retention or incontinence. No signs of cauda equina. This time I will plan to treat the patient symptomatically advised patient she can follow up with her primary care physician and chiropractor for further evaluation. Patient will be given information on exercises for sciatica. All questions pertaining care were answered return parameters were discussed patient was prescribed Motrin and Lidoderm patch for discomfort. (Griselda Carrington) - Lab Data Lab Results 01/06/19 01/06/19 01/06/19 Range/Units 20:00 20:00 20:00 WBC 11.2 H (3.8-10.6) k/uL RBC 4.71 (3.80-5.40) m/uL Hgb 15.1 (11.4-16.0) gm/dL Hct 45.3 (34.0-46.0) % MCV 96.2 (80.0-100.0) fL MCH 32.0 (25.0-35.0) pg MCHC 33.2 (31.0-37.0) g/dL RDW 12.1 (11.5-15.5) % Plt Count 421 (150-450) k/uL Neutrophils % 68 % Lymphocytes % 19 % Monocytes % 6 % Eosinophils % 6 % Basophils % 1 % Neutrophils # 7.6 (1.3-7.7) k/uL Lymphocytes # 2.1 (1.0-4.8) k/uL Monocytes # 0.7 (0-1.0) k/uL Eosinophils # 0.6 (0-0.7) k/uL Basophils # 0.1 (0-0.2) k/uL Sodium 136 L (137-145) mmol/L Potassium 5.0 (3.5-5.1) mmol/L Chloride 101 (98-107) mmol/L Carbon Dioxide 27 (22-30) mmol/L Anion Gap 8 mmol/L BUN 9 (7-17) mg/dL Creatinine 0.54 (0.52-1.04) mg/dL Est GFR (CKD-EPI)AfAm >90 (>60 ml/min/1.73 sqM) Est GFR (CKD-EPI)NonAf >90 (>60 ml/min/1.73 sqM) Glucose 76 (74-99) mg/dL Calcium 9.9 (8.4-10.2) mg/dL Total Bilirubin 0.3 (0.2-1.3) mg/dL AST 37 H (14-36) U/L ALT 27 (9-52) U/L Alkaline Phosphatase 54 (38-126) U/L Total Protein 7.7 (6.3-8.2) g/dL Albumin 4.7 (3.5-5.0) g/dL Amylase 74 (30-110) U/L Lipase 217 (23-300) U/L Urine Color Light Yellow Urine Appearance Cloudy H (Clear) Urine pH 6.0 (5.0-8.0) Ur Specific [place] 1.003 (1.001-1.035) Urine Protein Negative (Negative) Urine Glucose (UA) Negative (Negative) Urine Ketones Negative (Negative) Urine Blood Negative (Negative) Urine Nitrite Negative (Negative) Urine Bilirubin Negative (Negative) Urine Urobilinogen <2.0 (<2.0) mg/dL Ur Leukocyte Esterase Negative (Negative) Urine RBC 1 (0-5) /hpf Ur Squamous Epith Cells 6 H (0-4) /hpf Urine Mucus Rare H (None) /hpf Disposition <Arnel Ordaz - Last Filed: 01/07/19 00:43> Is patient prescribed a controlled substance at d/c from ED?: No <Griselda Carrington - Last Filed: 01/07/19 02:18> Clinical Impression: Back pain, Sciatic leg pain Disposition: HOME SELF-CARE Condition: Stable Instructions (If sedation given, give patient instructions): Sciatica (ED), Lower Back Exercises (ED) Prescriptions: Lidocaine 5% Patch [Lidoderm] 1 patch TOPICAL DAILY #30 patch Ibuprofen [Motrin] 600 mg PO Q6HR PRN #30 tab PRN Reason: Pain Referrals: María Elena Dunham MD [Primary Care Provider] - 1-2 days
--- NOTE | 2019-01-06 22:55 | US ---
EXAM: US Retroperitoneal Complete, Renal CLINICAL HISTORY: ITS.REASON US Reason: Pain TECHNIQUE: Real-time ultrasound of the retroperitoneum (complete) with image documentation. COMPARISON: No relevant prior studies available. FINDINGS: Right kidney: Unremarkable. No stones. No solid mass. No hydronephrosis. Left kidney: Unremarkable. No stones. No solid mass. No hydronephrosis. Bladder: Unremarkable as visualized. IMPRESSION: Normal retroperitoneal ultrasound.
--- NOTE | 2019-01-07 00:36 | CT ---
EXAM: CT Abdomen and Pelvis Without Intravenous Contrast CLINICAL HISTORY: ITS.REASON CT Reason: Pain TECHNIQUE: Axial computed tomography images of the abdomen and pelvis without intravenous contrast. CTDI 11.[address] exam was performed using one or more of the following dose reduction techniques: automated exposure control, adjustment of the mA and/or kV according to patient size, and/or use of iterative reconstruction technique. COMPARISON: No relevant prior studies available. FINDINGS: Lung bases: Unremarkable. No mass. No consolidation. ABDOMEN: Liver: Unremarkable. Gallbladder and bile ducts: Unremarkable. No calcified stones. No ductal dilation. Pancreas: Unremarkable. No ductal dilation. Spleen: Unremarkable. No splenomegaly. Adrenals: Unremarkable. No mass. Kidneys and ureters: Routine nonobstructing calyceal calculus at the left lower renal pole. Stomach and bowel: Unremarkable. No obstruction. No mucosal thickening. PELVIS: Appendix: No findings to suggest acute appendicitis. Bladder: Unremarkable. No stones. Reproductive: Unremarkable as visualized. ABDOMEN and PELVIS: Intraperitoneal space: Unremarkable. No free air. No significant fluid collection. Bones/joints: No acute fracture. No dislocation. Soft tissues: Unremarkable. Vasculature: Unremarkable. No abdominal aortic aneurysm. Lymph nodes: Unremarkable. No enlarged lymph nodes. IMPRESSION: Routine nonobstructing calyceal calculus at the left lower renal pole. No other acute or inflammatory disease or bowel obstruction.
[2019-01-07 01:17] VITALS: BP 141/79; PULSE 87
[2019-01-07] MEDS ORDERED: LIDOCAINE 5% PATCH TOPICAL STA (01:56)
== END 2019-01-07 02:22 | disposition home or self-care (01) ==
LOC: EC 18:58
DX: M54.42 Lumbago with sciatica, left side (principal); M79.7 Fibromyalgia; M06.9 Rheumatoid arthritis, unspecified; F17.200 Nicotine dependence, unspecified, uncomplicated; Z79.890 Hormone replacement therapy; Z79.899 Other long term (current) drug therapy; Z88.5 Allergy status to narcotic agent; Z91.041 Radiographic dye allergy status; Z53.8 Procedure and treatment not carried out for other reasons
CPT/HCPCS: 99284; 96374; 96375; 36415; 80053; 82150; 83690; 85025; 81001; 74018; 76770; 74176; J2405; J1885

== ENCOUNTER 2020-03-14 17:27 | Emergency (ER) | payer MEDICARE ==
[2020-03-14] MEDS ORDERED: SODIUM CHLORIDE 0.9% 1,000 ML IV STA (19:17)
[2020-03-14] MEDS ORDERED: ONDANSETRON 4 MG/2 ML VIAL IVP STA (19:17)
[2020-03-14] MEDS ORDERED: HYDROmorphone 1 MG/ML 1 ML SYRINGE IVP STA (19:17)
[2020-03-14 19:39] LABS: Basophils % (A) 0 %; Eosinophils # (A) 0.2 k/uL (0-0.7); Eosinophils % (A) 2 %; HCT 41.8 % (34.0-46.0); HGB 14.8 gm/dL (11.4-16.0); Lymphocytes % (A) 20 %; MCH 34.3 pg (25.0-35.0); MCHC 35.3 g/dL (31.0-37.0); MCV 97.2 fL (80.0-100.0); Mean Platelet Volume 7.3; Monocytes # (A) 0.6 k/uL (0-1.0); Monocytes % (A) 6 %; Neutrophils # (A) 6.9 k/uL (1.3-7.7); Neutrophils % (A) 70 %; Platelet Count 337 k/uL (150-450); RDW 11.6 % (11.5-15.5); WBC 9.9 k/uL (3.8-10.6)
[2020-03-14 19:47] LABS: Appearance,Urine Clear (Clear); Bilirubin,Urine Negative (Negative); Blood,Urine Negative (Negative); Color,Urine Colorless; Glucose,Urine (UA) Negative (Negative); Ketones,Urine Negative (Negative); Leukocyte Esterase,Urine Negative (Negative); Nitrite,Urine Negative (Negative); PH, Urine 6.5 (5.0-8.0); Protein,Urine Negative (Negative); Specific Gravity,Urine 1.003 (1.001-1.035); Urobilinogen,Urine <2.0 mg/dL (<2.0)
[2020-03-14 19:55] LABS: ALT 25 U/L (4-34); AST 33 U/L (14-36); African American GFR (CKD) >90 (>60 ml/min/1.73 sqM); Albumin 4.8 g/dL (3.5-5.0); Alkaline Phosphatase 70 U/L (38-126); Amylase 76 U/L (30-110); Anion Gap 11 mmol/L; Blood Urea Nitrogen 10 mg/dL (7-17); Calcium 9.7 mg/dL (8.4-10.2); Carbon Dioxide 25 mmol/L (22-30); Chloride 90 mmol/L (98-107); Glucose 95 mg/dL (74-99); Non-African American GFR(CKD) >90 (>60 ml/min/1.73 sqM); Potassium 3.9 mmol/L (3.5-5.1); Sodium 126 mmol/L (137-145); Total Bilirubin 0.2 mg/dL (0.2-1.3); Total Protein 7.6 g/dL (6.3-8.2)
[2020-03-14] MEDS ORDERED: HYDROmorphone 0.5 MG/0.5 ML SYRINGE IVP STA ×2 (21:29→23:54)
--- NOTE | 2020-03-14 21:50 | US ---
EXAMINATION TYPE: US abdomen limited DATE OF EXAM: 03/14/2020 COMPARISON: NONE CLINICAL HISTORY: Right upper quadrant pain. EXAM MEASUREMENTS: Liver Length: 14.0 cm Gallbladder Wall: 0.3 cm CBD: 0.4 cm Right Kidney: 11.1 x 4.3 x 4.6 cm Pancreas: Normal where visualized. Partially secured due to overlying bowel gas. Liver: Normal. Gallbladder: Normal. No cholelithiasis. [employer] reports a negative Melendez's sign. CBD: Normal. No intrahepatic or extrahepatic biliary ductal dilatation. Right Kidney: No hydronephrosis. Inferior pole obscured by overlying bowel gas. IMPRESSION: No findings to explain patient's right upper quadrant pain.
[2020-03-14] MEDS ORDERED: methylPREDNISolone SOD SUCCI 125 MG/2 ML VIAL IV STA (22:00)
[2020-03-14] MEDS ORDERED: diphenhydrAMINE 50 MG/ML 1 ML VIAL IVP STA (22:00)
[2020-03-14] MEDS ORDERED: FAMOTIDINE 20 MG/2 ML VIAL IV STA (22:00)
--- NOTE | 2020-03-14 23:24 | CT ---
EXAMINATION TYPE: CT abdomen pelvis w con DATE OF EXAM: 03/14/2020 COMPARISON: 01/06/2019 HISTORY: upper abd pain CT DLP: 1162.1 mGycm Automated exposure control for dose reduction was used. CONTRAST: Performed with IV Contrast, patient injected with 100 mL of Isovue 300. Lung bases are clear. There is no pleural effusion. Heart size is normal. There is no pericardial eff usion. Liver spleen stomach pancreas gallbladder appear normal. Bile ducts are not dilated. There is no adrenal mass. Kidneys show satisfactory contrast opacification. There is no hydronephrosi s. There is normal excretion on the delayed images. There is no retroperitoneal adenopathy. Bladder d istends smoothly. There is no inguinal hernia. There is no evidence of a pelvic mass. Uterus is antev erted. There is no free fluid in the pelvis. There is no mesenteric edema. There is no ascites or free air. There is no bowel obstruction. Appendi x is not definitely seen. There is no sign of thickened appendix. Small bowel appears normal. Lumbar vertebra have normal alignment. There is no compression fracture. Posterior elements are intac t. The bony pelvis appears intact. Hip joints appear normal. There is vacuum disc at L5-S1. IMPRESSION: No sign of acute abdomen and pelvis. Appendix not seen. No adverse change compared to old exam.
--- NOTE | 2020-03-14 23:35 | ED ---
Abdominal Pain HPI - General Chief Complaint: Abdominal Pain Stated Complaint: Severe abdominal pain Time Seen by Provider: 03/14/20 18:49 Source: patient Mode of arrival: ambulatory Limitations: no limitations - History of Present Illness Initial Comments: 44 year-old female patient presents to the emergency department today for evaluation of upper abdominal pain. Patient states the pain has been present for the last couple of days. States when she wakes up in the morning she is pain-free but then throughout the day the pain gradually worsens. States that worsens after eating. States she has been very nauseous. Has not had any episodes of vomiting. She denies any fever or chills. States that she has been constipated, last normal bowel movement was about 4 days ago. She does admit to a small episode of diarrhea today. Denies any hematuria, dysuria, urinary frequency, urinary urgency. Denies any history of abdominal surgery. Denies any chest pain or shortness of breath. Denies any radiation of the pain through to her back or to her shoulder. Patient denies any recent rash, cough, shortness of breath, chest pain, numbness, tingling, dizziness, weakness, headache, visual changes, or any other complaints. - Related Data Home Medications Medication Instructions Recorded Confirmed DULoxetine HCL [Cymbalta] 90 mg PO DAILY 10/23/15 12/08/17 Ibuprofen [Motrin] 600 mg PO Q6HR PRN 10/23/15 12/08/17 Leflunomide [Arava] 20 mg PO DAILY 10/23/15 12/08/17 Levothyroxine Sodium [Synthroid] 50 mcg PO DAILY 10/23/15 12/08/17 Pnv,Calcium 72/Iron/Folic Acid 1 tab PO DAILY 10/23/15 12/08/17 [ Plus Tablet] Zolpidem [Ambien] 10 mg PO HS PRN 10/23/15 12/08/17 Chlorzoxazone [Parafon Forte DSC] 500 mg PO DAILY 03/07/17 12/08/17 Hydroxychloroquine Sulfate 200 mg PO BID 03/07/17 12/08/17 [Plaquenil] Loratadine [Claritin] 10 mg PO DAILY 03/07/17 12/08/17 Previous Rx's Medication Instructions Recorded HYDROcodone/APAP 5-325MG [[place] 1 tab PO Q6HR PRN #12 tab 12/08/17 5-325] Ibuprofen [Motrin] 600 mg PO Q8HR PRN #20 tab 12/08/17 Ondansetron HCl [Zofran] 4 mg PO Q8HR PRN #14 tablet 12/08/17 Tamsulosin [Flomax] 0.4 mg PO DAILY #20 cap 12/08/17 Dicyclomine [Bentyl] 20 mg PO QID #20 tablet 05/19/18 Ondansetron Odt [Zofran ODT] 4 mg PO Q8HR PRN #20 tab 05/19/18 Ibuprofen [Motrin] 600 mg PO Q6HR PRN #30 tab 01/07/19 Lidocaine 5% Patch [Lidoderm] 1 patch TOPICAL DAILY #30 patch 01/07/19 Famotidine [Pepcid] 20 mg PO HS #30 tablet 03/14/20 Ondansetron [Zofran ODT] 4 mg PO Q8HR PRN #15 tab 03/14/20 Allergies Allergy/AdvReac Type Severity Reaction Status Date / Time codeine Allergy Chest Verified 03/14/20 17:53 Pain, dyspnea,hives Iodinated Contrast Media Allergy flushed,hot Verified 03/14/20 17:53 [Iodinated Contrast Media - ,nauseated IV Dye] Review of Systems ROS Statement: Those systems with pertinent positive or pertinent negative responses have been documented in the HPI. ROS Other: All systems not noted in ROS Statement are negative. Past Medical History Past Medical History: Fibromyalgia, Rheumatoid Arthritis (RA) Additional Past Medical History / Comment(s): hx kidney stones History of Any Multi-Drug Resistant Organisms: None Reported Past Surgical History: Ablation Additional Past Surgical History / Comment(s): uterine ablation Past Psychological History: No Psychological Hx Reported Smoking Status: Current every day smoker Past Alcohol Use History: None Reported Past Drug Use History: None Reported General Exam Limitations: no limitations General appearance: alert, in no apparent distress, other (This is a well- developed, well-nourished adult female patient in no acute distress. Vital signs upon presentation are temperature 98.2F, pulse 79, respirations 18, blood pressure 138/84, pulse ox 98% on room air.) Eye exam: Present: normal appearance, PERRL, EOMI. Absent: scleral icterus, conjunctival injection, periorbital swelling ENT exam: Present: normal exam, normal oropharynx, mucous membranes moist Respiratory exam: Present: normal lung sounds bilaterally. Absent: respiratory distress, wheezes, rales, rhonchi, stridor Cardiovascular Exam: Present: regular rate, normal rhythm, normal heart sounds. Absent: systolic murmur, diastolic murmur, rubs, gallop, clicks GI/Abdominal exam: Present: soft, tenderness (Midepigastric and right upper quadrant abdominal tenderness), normal bowel sounds. Absent: distended, gu arding, rebound, rigid Neurological exam: Present: alert, oriented X3, CN II-XII intact Psychiatric exam: Present: normal affect, normal mood Skin exam: Present: warm, dry, intact, normal color. Absent: rash Course Vital Signs 03/14/20 03/14/20 03/14/20 17:52 19:41 23:58 Temperature 98.2 F 97.9 F Pulse Rate 79 76 Respiratory 18 16 18 Rate Blood Pressure 138/84 130/82 O2 Sat by Pulse 98 99 Oximetry Medical Decision Making - Medical Decision Making 44-year-old female patient presents to the emergency department today for evaluation of upper abdominal pain and nausea. Physical examination did reveal midepigastric right upper quadrant abdominal tenderness. Labs reviewed and were unremarkable. Ultrasound of right upper quadrant was obtained and was negative. CT abdomen and pelvis was obtained and showed no acute abdomen or pelvis. I did discuss findings and results with the patient. We did discuss gastritis also gallbladder dysfunction as a cause for her symptoms. She will be started on Pepcid as a child. She is instructed to follow-up with her primary care physician for recheck in 1-2 days. She is instructed to discuss HIDA scan. Return parameters were discussed in detail. She verbalizes understanding and agrees with this plan. - Lab Data Result diagrams: 03/14/20 19:21 03/14/20 19:21 Lab Results 03/14/20 03/14/20 03/14/20 Range/Units 19:21 19:21 19:21 WBC 9.9 (3.8-10.6) k/uL RBC 4.30 (3.80-5.40) m/uL Hgb 14.8 (11.4-16.0) gm/dL Hct 41.8 (34.0-46.0) % MCV 97.2 (80.0-100.0) fL MCH 34.3 (25.0-35.0) pg MCHC 35.3 (31.0-37.0) g/dL RDW 11.6 (11.5-15.5) % Plt Count 337 (150-450) k/uL Neutrophils % 70 % Lymphocytes % 20 % Monocytes % 6 % Eosinophils % 2 % Basophils % 0 % Neutrophils # 6.9 (1.3-7.7) k/uL Lymphocytes # 2.0 (1.0-4.8) k/uL Monocytes # 0.6 (0-1.0) k/uL Eosinophils # 0.2 (0-0.7) k/uL Basophils # 0.0 (0-0.2) k/uL Sodium (137-145) mmol/L Potassium (3.5-5.1) mmol/L Chloride (98-107) mmol/L Carbon Dioxide (22-30) mmol/L Anion Gap mmol/L BUN (7-17) mg/dL Creatinine (0.52-1.04) mg/dL Est GFR (CKD-EPI)AfAm (>60 ml/min/1.73 sqM) Est GFR (CKD-EPI)NonAf (>60 ml/min/1.73 sqM) Glucose (74-99) mg/dL Plasma Lactic Acid [place] (0.7-2.0) mmol/L Calcium (8.4-10.2) mg/dL Total Bilirubin (0.2-1.3) mg/dL AST (14-36) U/L ALT (4-34) U/L Alkaline Phosphatase (38-126) U/L Troponin I (0.000-0.034) ng/mL Total Protein (6.3-8.2) g/dL Albumin (3.5-5.0) g/dL Amylase (30-110) U/L Lipase (23-300) U/L Urine Color Colorless Urine Appearance Clear (Clear) Urine pH 6.5 (5.0-8.0) Ur Specific [place] 1.003 (1.001-1.035) Urine Protein Negative (Negative) Urine Glucose (UA) Negative (Negative) Urine Ketones Negative (Negative) Urine Blood Negative (Negative) Urine Nitrite Negative (Negative) Urine Bilirubin Negative (Negative) Urine Urobilinogen <2.0 (<2.0) mg/dL Ur Leukocyte Esterase Negative (Negative) Urine HCG, Qual Not Detected (Not Detectd) 03/14/20 03/14/20 03/14/20 Range/Units 19:21 19:21 19:21 WBC (3.8-10.6) k/uL RBC (3.80-5.40) m/uL Hgb (11.4-16.0) gm/dL Hct (34.0-46.0) % MCV (80.0-100.0) fL MCH (25.0-35.0) pg MCHC (31.0-37.0) g/dL RDW (11.5-15.5) % Plt Count (150-450) k/uL Neutrophils % % Lymphocytes % % Monocytes % % Eosinophils % % Basophils % % Neutrophils # (1.3-7.7) k/uL Lymphocytes # (1.0-4.8) k/uL Monocytes # (0-1.0) k/uL Eosinophils # (0-0.7) k/uL Basophils # (0-0.2) k/uL Sodium 126 L (137-145) mmol/L Potassium 3.9 (3.5-5.1) mmol/L Chloride 90 L (98-107) mmol/L Carbon Dioxide 25 (22-30) mmol/L Anion Gap 11 mmol/L BUN 10 (7-17) mg/dL Creatinine 0.63 (0.52-1.04) mg/dL Est GFR (CKD-EPI)AfAm >90 (>60 ml/min/1.73 sqM) Est GFR (CKD-EPI)NonAf >90 (>60 ml/min/1.73 sqM) Glucose 95 (74-99) mg/dL Plasma Lactic Acid [place] 0.8 (0.7-2.0) mmol/L Calcium 9.7 (8.4-10.2) mg/dL Total Bilirubin 0.2 (0.2-1.3) mg/dL AST 33 (14-36) U/L ALT 25 (4-34) U/L Alkaline Phosphatase 70 (38-126) U/L Troponin I <0.012 (0.000-0.034) ng/mL Total Protein 7.6 (6.3-8.2) g/dL Albumin 4.8 (3.5-5.0) g/dL Amylase 76 (30-110) U/L Lipase 200 (23-300) U/L Urine Color Urine Appearance (Clear) Urine pH (5.0-8.0) Ur Specific [place] (1.001-1.035) Urine Protein (Negative) Urine Glucose (UA) (Negative) Urine Ketones (Negative) Urine Blood (Negative) Urine Nitrite (Negative) Urine Bilirubin (Negative) Urine Urobilinogen (<2.0) mg/dL Ur Leukocyte Esterase (Negative) Urine HCG, Qual (Not Detectd) - EKG Data -: EKG Interpreted by Tn EKG Comments: EKG obtained at 1938 shows normal sinus rhythm with a ventricular rate of 82, TN interval 1:30, QRS duration 82, QT 366, QTc 427. No evidence of ST elevation or depression. - Radiology Data Radiology results: report reviewed, image reviewed Ultrasound of the right upper quadrant was obtained. Report was reviewed in its entirety. Impression by Dr. Dahl shows no findings to explain the patient's right upper quadrant pain. CT abdomen and pelvis with contrast was obtained. Report was reviewed in its entirety. Impression by Dr. Layton shows no sign of acute abdomen and pe lvis. Appendix not seen. No adverse change compared to old exam. Disposition Clinical Impression: Abdominal pain Disposition: HOME SELF-CARE Condition: Good Instructions (If sedation given, give patient instructions): Gastritis (ED) Additional Instructions: Eat a bland diet. Take medications as directed. Follow up with your primary care physician for recheck as soon as possible. Return to the emergency department immediately for any new, worsening, or concerning symptoms. Prescriptions: Famotidine [Pepcid] 20 mg PO HS #30 tablet Ondansetron [Zofran ODT] 4 mg PO Q8HR PRN #15 tab PRN Reason: Nausea Is patient prescribed a controlled substance at d/c from ED?: No Referrals: María Elena Dunham MD [Primary Care Provider] - 1-2 days Time of Disposition: 23:34
[2020-03-15] VITALS: BP 130/82; PULSE 76; RESP 18; TEMP 97.9
== END 2020-03-15 00:05 | disposition home or self-care (01) ==
LOC: EC 17:27
DX: R10.10 Upper abdominal pain, unspecified (principal); R11.0 Nausea; M79.7 Fibromyalgia; M06.9 Rheumatoid arthritis, unspecified; F17.200 Nicotine dependence, unspecified, uncomplicated; Z79.899 Other long term (current) drug therapy; Z88.5 Allergy status to narcotic agent; Z91.041 Radiographic dye allergy status; Z87.442 Personal history of urinary calculi
CPT/HCPCS: 36415; 93005; 80053; 82150; 83605; 83690; 84484; 85025; 81003; 81025; 76705; 74177; 99284; 96374; 96375 ×4; 96376 ×2; 96361 ×4; J1200; J2930; J2405; J1170 ×2; Q9967

== ENCOUNTER 2020-04-01 17:45 | Observation (INO) | payer MEDICARE ==
[2020-04-01] MEDS ORDERED: SODIUM CHLORIDE 0.9% 1,000 ML IV STA (18:14)
[2020-04-01] MEDS ORDERED: KETOROLAC 30 MG/ML 1 ML VIAL IVP STA (18:25)
[2020-04-01] MEDS ORDERED: ONDANSETRON 4 MG/2 ML VIAL IVP STA (18:25)
--- NOTE | 2020-04-01 18:27 | ED ---
General Adult HPI - General Chief complaint: Abdominal Pain Stated complaint: abd pain Time Seen by Provider: 04/01/20 17:57 Source: patient Mode of arrival: wheelchair Limitations: no limitations - History of Present Illness Initial comments: 44 year old female with a past medical history fibromyalgia, rheumatoid arthritis presents to the emergency department for a chief complaint of right upper quadrant pain. Patient reports that she has had a right upper quadrant pain for the past 3 weeks that seems to be worsening in the past 3 days. States it is now radiating to the right shoulder into her back. Patient reports this worsens after eating. Admits to nausea. Admits to diarrhea for the past 3 days as well. Denies fevers. States that she does have an appointment with a color expert at the end of the month. patient did have a negative CT and right upper quadrant ultrasound performed about 2 weeks ago here in this emergency room. Patient has no other complaints at this time including shortness of breath, chest pain, headache, or visual changes. - Related Data Home Medications Medication Instructions Recorded Confirmed DULoxetine HCL [Cymbalta] 90 mg PO DAILY 10/23/15 12/08/17 Ibuprofen [Motrin] 600 mg PO Q6HR PRN 10/23/15 12/08/17 Leflunomide [Arava] 20 mg PO DAILY 10/23/15 12/08/17 Levothyroxine Sodium [Synthroid] 50 mcg PO DAILY 10/23/15 12/08/17 Pnv,Calcium 72/Iron/Folic Acid 1 tab PO DAILY 10/23/15 12/08/17 [ Plus Tablet] Zolpidem [Ambien] 10 mg PO HS PRN 10/23/15 12/08/17 Chlorzoxazone [Parafon Forte DSC] 500 mg PO DAILY 03/07/17 12/08/17 Hydroxychloroquine Sulfate 200 mg PO BID 03/07/17 12/08/17 [Plaquenil] Loratadine [Claritin] 10 mg PO DAILY 03/07/17 12/08/17 Previous Rx's Medication Instructions Recorded HYDROcodone/APAP 5-325MG [[place] 1 tab PO Q6HR PRN #12 tab 12/08/17 5-325] Ibuprofen [Motrin] 600 mg PO Q8HR PRN #20 tab 12/08/17 Ondansetron HCl [Zofran] 4 mg PO Q8HR PRN #14 tablet 12/08/17 Tamsulosin [Flomax] 0.4 mg PO DAILY #20 cap 12/08/17 Dicyclomine [Bentyl] 20 mg PO QID #20 tablet 05/19/18 Ondansetron Odt [Zofran ODT] 4 mg PO Q8HR PRN #20 tab 05/19/18 Ibuprofen [Motrin] 600 mg PO Q6HR PRN #30 tab 01/07/19 Lidocaine 5% Patch [Lidoderm] 1 patch TOPICAL DAILY #30 patch 01/07/19 Famotidine [Pepcid] 20 mg PO HS #30 tablet 03/14/20 Ondansetron [Zofran ODT] 4 mg PO Q8HR PRN #15 tab 03/14/20 Allergies Allergy/AdvReac Type Severity Reaction Status Date / Time codeine Allergy Chest Verified 04/01/20 17:55 Pain, dyspnea,hives Iodinated Contrast Media Allergy flushed,hot Verified 04/01/20 17:55 [Iodinated Contrast Media - ,nauseated IV Dye] Review of Systems ROS Statement: Those systems with pertinent positive or pertinent negative responses have been documented in the HPI. ROS Other: All systems not noted in ROS Statement are negative. Past Medical History Past Medical History: Fibromyalgia, Rheumatoid Arthritis (RA) Additional Past Medical History / Comment(s): hx kidney stones History of Any Multi-Drug Resistant Organisms: None Reported Past Surgical History: Ablation Additional Past Surgical History / Comment(s): uterine ablation, kidney stone Past Psychological History: No Psychological Hx Reported Smoking Status: Current every day smoker Past Alcohol Use History: None Reported Past Drug Use History: None Reported General Exam Limitations: no limitations General appearance: alert, in no apparent distress Head exam: Present: atraumatic, normocephalic, normal inspection Eye exam: Present: normal appearance, PERRL, EOMI. Absent: scleral icterus, conjunctival injection, periorbital swelling ENT exam: Present: normal exam, mucous membranes moist Neck exam: Present: normal inspection, full ROM. Absent: tenderness, meningismus, lymphadenopathy Respiratory exam: Present: normal lung sounds bilaterally. Absent: respiratory distress, wheezes, rales, rhonchi, stridor Cardiovascular Exam: Present: regular rate, normal rhythm, normal heart sounds. Absent: systolic murmur, diastolic murmur, rubs, gallop, clicks GI/Abdominal exam: Present: soft, tenderness (right upper quadrant tenderness with guarding, positive Melendez sign.). Absent: distended, guarding, rebound, rigid Neurological exam: Present: alert Course Vital Signs 04/01/20 17:53 Temperature 98.5 F Pulse Rate 110 H Respiratory 18 Rate Blood Pressure 114/71 O2 Sat by Pulse 100 Oximetry Medical Decision Making - Medical Decision Making Patient had CT obtained about 2 weeks ago with contrast that showed no sign of acute abdomen or pelvis. Appendix not seen. No adverse change compared to old exam. Ultrasound showed no findings to explain patient's right upper quadrant pain. CBC does show leukocytosis with a left shift. CMP is unremarkable. There is slight elevation in lipase of 342. Ultrasound was repeated which showed a contracted gallbladder. No gallstones or dilated ducts. Nonobstructing 5 mm cut his right kidney. patient was given multiple different pain medications and still continued to have pain. this is patient's second visit for this pain. Patient states she is unable to eat at home because of this pain. states she has tried to see primary care without relief and has an appointment with GI at the end of the month but does not feel she can tolerate the pain longer. Patient was started on Protonix given his upper abdominal pain could be related to gastritis or ulcer formation. Patient will be admitted for intractable abdominal pain with consultations to general surgery and GI. - Lab Data Result diagrams: 04/01/20 18:20 04/01/20 18:20 Lab Results 04/01/20 04/01/20 04/01/20 Range/Units 18:20 18:20 18:20 WBC 13.5 H (3.8-10.6) k/uL RBC 4.90 (3.80-5.40) m/uL Hgb 15.5 (11.4-16.0) gm/dL Hct 47.8 H (34.0-46.0) % MCV 97.5 (80.0-100.0) fL MCH 31.6 (25.0-35.0) pg MCHC 32.4 (31.0-37.0) g/dL RDW 12.0 (11.5-15.5) % Plt Count 419 (150-450) k/uL Neutrophils % 80 % Lymphocytes % 11 % Monocytes % 4 % Eosinophils % 3 % Basophils % 1 % Neutrophils # 10.8 H (1.3-7.7) k/uL Lymphocytes # 1.5 (1.0-4.8) k/uL Monocytes # 0.6 (0-1.0) k/uL Eosinophils # 0.4 (0-0.7) k/uL Basophils # 0.1 (0-0.2) k/uL Sodium (137-145) mmol/L Potassium (3.5-5.1) mmol/L Chloride (98-107) mmol/L Carbon Dioxide (22-30) mmol/L Anion Gap mmol/L BUN (7-17) mg/dL Creatinine (0.52-1.04) mg/dL Est GFR (CKD-EPI)AfAm (>60 ml/min/1.73 sqM) Est GFR (CKD-EPI)NonAf (>60 ml/min/1.73 sqM) Glucose (74-99) mg/dL Plasma Lactic Acid [place] (0.7-2.0) mmol/L Calcium (8.4-10.2) mg/dL Total Bilirubin (0.2-1.3) mg/dL AST (14-36) U/L ALT (4-34) U/L Alkaline Phosphatase (38-126) U/L Total Protein (6.3-8.2) g/dL Albumin (3.5-5.0) g/dL Amylase (30-110) U/L Lipase (23-300) U/L Urine Color Light Yellow Urine Appearance Clear (Clear) Urine pH 6.0 (5.0-8.0) Ur Specific [place] 1.003 (1.001-1.035) Urine Protein Negative (Negative) Urine Glucose (UA) Negative (Negative) Urine Ketones Negative (Negative) Urine Blood Negative (Negative) Urine Nitrite Negative (Negative) Urine Bilirubin Negative (Negative) Urine Urobilinogen <2.0 (<2.0) mg/dL Ur Leukocyte Esterase Negative (Negative) Urine HCG, Qual Not Detected (Not Detectd) 04/01/20 04/01/20 Range/Units 18:20 18:20 WBC (3.8-10.6) k/uL RBC (3.80-5.40) m/uL Hgb (11.4-16.0) gm/dL Hct (34.0-46.0) % MCV (80.0-100.0) fL MCH (25.0-35.0) pg MCHC (31.0-37.0) g/dL RDW (11.5-15.5) % Plt Count (150-450) k/uL Neutrophils % % Lymphocytes % % Monocytes % % Eosinophils % % Basophils % % Neutrophils # (1.3-7.7) k/uL Lymphocytes # (1.0-4.8) k/uL Monocytes # (0-1.0) k/uL Eosinophils # (0-0.7) k/uL Basophils # (0-0.2) k/uL Sodium 134 L (137-145) mmol/L Potassium 4.4 (3.5-5.1) mmol/L Chloride 101 (98-107) mmol/L Carbon Dioxide 21 L (22-30) mmol/L Anion Gap 12 mmol/L BUN 8 (7-17) mg/dL Creatinine 0.66 (0.52-1.04) mg/dL Est GFR (CKD-EPI)AfAm >90 (>60 ml/min/1.73 sqM) Est GFR (CKD-EPI)NonAf >90 (>60 ml/min/1.73 sqM) Glucose 123 H (74-99) mg/dL Plasma Lactic Acid [place] 1.5 (0.7-2.0) mmol/L Calcium 10.0 (8.4-10.2) mg/dL Total Bilirubin 0.4 (0.2-1.3) mg/dL AST 30 (14-36) U/L ALT 22 (4-34) U/L Alkaline Phosphatase 69 (38-126) U/L Total Protein 8.0 (6.3-8.2) g/dL Albumin 5.0 (3.5-5.0) g/dL Amylase 81 (30-110) U/L Lipase 342 H (23-300) U/L Urine Color Urine Appearance (Clear) Urine pH (5.0-8.0) Ur Specific [place] (1.001-1.035) Urine Protein (Negative) Urine Glucose (UA) (Negative) Urine Ketones (Negative) Urine Blood (Negative) Urine Nitrite (Negative) Urine Bilirubin (Negative) Urine Urobilinogen (<2.0) mg/dL Ur Leukocyte Esterase (Negative) Urine HCG, Qual (Not Detectd) Disposition Clinical Impression: Intractable abdominal pain Disposition: ADMITTED IP TO THIS HOSP Is patient prescribed a controlled substance at d/c from ED?: No Referrals: María Elena Dunham MD [Primary Care Provider] - 1-2 days Time of Disposition: 20:19
[2020-04-01 18:33] LABS: Basophils # (A) 0.1 k/uL (0-0.2); Basophils % (A) 1 %; Eosinophils # (A) 0.4 k/uL (0-0.7); Eosinophils % (A) 3 %; HCT 47.8 % (34.0-46.0); HGB 15.5 gm/dL (11.4-16.0); Lymphocytes # (A) 1.5 k/uL (1.0-4.8); Lymphocytes % (A) 11 %; MCH 31.6 pg (25.0-35.0); MCHC 32.4 g/dL (31.0-37.0); MCV 97.5 fL (80.0-100.0); Mean Platelet Volume 7.1; Monocytes # (A) 0.6 k/uL (0-1.0); Monocytes % (A) 4 %; Neutrophils # (A) 10.8 k/uL (1.3-7.7); Neutrophils % (A) 80 %; Platelet Count 419 k/uL (150-450); WBC 13.5 k/uL (3.8-10.6)
[2020-04-01 18:42] LABS: ALT 22 U/L (4-34); AST 30 U/L (14-36); African American GFR (CKD) >90 (>60 ml/min/1.73 sqM); Alkaline Phosphatase 69 U/L (38-126); Amylase 81 U/L (30-110); Anion Gap 12 mmol/L; Blood Urea Nitrogen 8 mg/dL (7-17); Carbon Dioxide 21 mmol/L (22-30); Chloride 101 mmol/L (98-107); Glucose 123 mg/dL (74-99); Non-African American GFR(CKD) >90 (>60 ml/min/1.73 sqM); Potassium 4.4 mmol/L (3.5-5.1); Sodium 134 mmol/L (137-145); Total Bilirubin 0.4 mg/dL (0.2-1.3)
[2020-04-01 18:47] LABS: Appearance,Urine Clear (Clear); Bilirubin,Urine Negative (Negative); Blood,Urine Negative (Negative); Color,Urine Light Yellow; Glucose,Urine (UA) Negative (Negative); Ketones,Urine Negative (Negative); Leukocyte Esterase,Urine Negative (Negative); Nitrite,Urine Negative (Negative); Protein,Urine Negative (Negative); Specific Gravity,Urine 1.003 (1.001-1.035); Urobilinogen,Urine <2.0 mg/dL (<2.0)
--- NOTE | 2020-04-01 19:23 | US ---
EXAMINATION TYPE: US abdomen limited DATE OF EXAM: 04/01/2020 COMPARISON: CT, US CLINICAL HISTORY: ruq. RUQ pain x 3 weeks. Hx kidney stones in left kidney. EXAM MEASUREMENTS: Liver Length: 15.2 cm Gallbladder Wall: 0.15 cm CBD: 0.28 cm Right Kidney: 11.2 x 5.8 x 4.4 cm *Patient gassy. Pancreas: Appears hyperechoic. Tail slightly obscured. Liver: Appears wnl Gallbladder: Appears partially contracted. Difficult to see clear borders of wall. Evidence for sonographic Melendez's sign: No CBD: Appears wnl Right Kidney: Hypoechoic area seen superiorly measurin.8 x 1.3 x 0.7 cm. Hyperechoic area seen i nferiorly measurin.6 x 0.5 x 0.3 cm. IMPRESSION: Contracted gallbladder. No gallstones or dilated ducts. No focal liver defect. Nonobstruc ting 5 mm calculus upper pole right kidney.
[2020-04-01] MEDS ORDERED: HYDROmorphone 0.5 MG/0.5 ML SYRINGE IVP STA (19:28)
--- NOTE | 2020-04-01 19:51 | XR ---
EXAMINATION TYPE: XR KUB DATE OF EXAM: 04/01/2020 COMPARISON: 01/06/2019 HISTORY: Abdominal pain TECHNIQUE: 2 views upright. 2 views upright show no sign of intestinal obstruction or pneumoperitoneum. Fecal pattern is normal. There is no evidence of a mass. Lung bases are clear. There are no pathologic calcifications over the kidneys. IMPRESSION: Nonacute abdomen. No adverse change.
[2020-04-01] MEDS ORDERED: PANTOPRAZOLE 40 MG/10 ML VIAL IVP STA (20:08)
[2020-04-01] MEDS ORDERED: NALOXONE 0.4 MG/ML 1 ML VIAL IV PRN (20:13)
[2020-04-01] MEDS ORDERED: HYDROmorphone 0.5 MG/0.5 ML SYRINGE IVP PRN (20:13)
--- NOTE | 2020-04-01 22:22 | CT ---
EXAMINATION TYPE: CT brain wo con DATE OF EXAM: 04/01/2020 COMPARISON: None HISTORY: Syncope w/LOC. Pt thinks she hit head. CT DLP: 1102.4 mGycm Automated exposure control for dose reduction was used. Ventricles have normal size. There is no mass effect nor midline shift. There is no sign of intracran ial hemorrhage. The calvarium is intact. There is no evidence of cerebral edema. There is normal aera tion of the mastoid sinuses. Skull base is intact. IMPRESSION: Negative unenhanced head CT scan.
[2020-04-01] MEDS: ONDANSETRON 4 MG/2 ML VIAL IVP PRN (22:34)
[2020-04-01] MEDS: SODIUM CHLORIDE 0.9% 1,000 ML IV SCH (22:41)
--- NOTE | 2020-04-01 23:59 | P.HPIM ---
History of Present Illness H&P Date: 04/01/20 The patient is a 44-year-old female with a PMH of fibromyalgia, kidney stones, rheumatoid arthritis, and hypothyroidism, who presents to the ED with complaints of abdominal pain. The patient reports that for the past 3 weeks, she has had ongoing right upper quadrant abdominal pain. She reports that as intermittent, exacerbated with any kind of food and laying down, alleviated with sitting up, initially radiating to her chest and now to her back for the past few days, 7 out of 10 at maximum intensity. She also reports intermittent constipation and diarrhea. Notes that her diet is somewhat limited due to her pain, and she eats mostly fruits, oatmeal, and other soft foods including smoothies. The patient was previously seen in the emergency room on 03/14 with similar complaints at which time an abdominal computed tomography scan was unremarkable. She reports having an appointment with a jack prizer as an outpatient at the end of the month, though is unable to weight that long due to the intensity of the pain. She also notes that she had an episode of loss of consciousness yesterday when she was sitting down chair, and stood up, subsequently developing lightheadedness. She woke up on the ground after an unknown amount of time. No one witnessed the fall. She does note hitting her head. Denied prodromal chest discomfort, palpitations. Denied urinary incontinence or tongue biting. Denied any shaking movements. She notes that she is currently not working and at home with her 2 children and her . She reports drinking "a lot"of water recently since she is concerned about her diarrhea, with 4 watery stools yesterday. Denied episodes of vomiting. A right upper quadrant ultrasound revealed a contracted gallbladder with no stones or dilated ducts along with a nonobstructing 5 mm right upper pole kidney calculus. On the laboratory evaluation, she had leukocytosis of 13.5, with hyponatremia 134, and elevated lipase of 342. Review of Systems Pertinent positives and negatives as discussed in HPI, a complete review of systems was performed and all other systems are negative. Past Medical History Past Medical History: Fibromyalgia, Rheumatoid Arthritis (RA) Additional Past Medical History / Comment(s): hx kidney stones History of Any Multi-Drug Resistant Organisms: None Reported Past Surgical History: Ablation Additional Past Surgical History / Comment(s): uterine ablation, kidney stone Past Anesthesia/Blood Transfusion Reactions: No Reported Reaction Past Psychological History: No Psychological Hx Reported Smoking Status: Current every day smoker Past Alcohol Use History: None Reported Past Drug Use History: None Reported Medications and Allergies Home Medications Medication Instructions Recorded Confirmed Type DULoxetine HCL [Cymbalta] 30 mg PO HS 10/23/15 04/01/20 History Levothyroxine Sodium [Synthroid] 50 mcg PO HS 10/23/15 04/01/20 History Pnv,Calcium 72/Iron/Folic Acid 1 tab PO DAILY 10/23/15 04/01/20 History [ Plus Tablet] Zolpidem [Ambien] 10 mg PO HS PRN 10/23/15 04/01/20 History Chlorzoxazone [Parafon Forte DSC] 500 mg PO DAILY PRN 03/07/17 04/01/20 History Hydroxychloroquine Sulfate 200 mg PO BID 03/07/17 04/01/20 History [Plaquenil] Loratadine [Claritin] 10 mg PO DAILY 03/07/17 04/01/20 History Famotidine [Pepcid] 20 mg PO HS #30 tablet 03/14/20 04/01/20 Rx DULoxetine HCL [Cymbalta] 60 mg PO HS 04/01/20 04/01/20 History Estradiol/Norethindrone Acet 1 tab PO DAILY 04/01/20 04/01/20 History [Lopreeza 1 mg-0.5 mg Tablet] Hydrocodone/Acetaminophen [[place] 1 tab PO QID PRN 04/01/20 04/01/20 History 7.5-325] Ibuprofen [Motrin] 600 mg PO DAILY PRN 04/01/20 04/01/20 History Allergies Allergy/AdvReac Type Severity Reaction Status Date / Time codeine Allergy Chest Verified 04/01/20 17:55 Pain, dyspnea,hives Iodinated Contrast Media Allergy flushed,hot Verified 04/01/20 17:55 [Iodinated Contrast Media - ,nauseated IV Dye] Physical Exam Vitals: Vital Signs Temp Pulse Pulse Pulse Resp BP BP 04/01/20 21:52 04/01/20 21:51 81 121/80 04/01/20 21:48 90 04/01/20 21:13 98.0 F 84 16 123/87 04/01/20 21:11 98.1 F 77 16 116/83 04/01/20 17:53 98.5 F 110 H 18 114/71 BP BP BP Pulse Ox 04/01/20 21:52 121/80 128/78 117/75 04/01/20 21:51 04/01/20 21:48 117/75 04/01/20 21:13 99 04/01/20 21:11 96 04/01/20 17:53 100 Intake and Output 04/01/20 04/01/20 04/02/20 14:59 22:59 06:59 Intake Total 450 Balance 450 Intake: Oral 450 Other: Voiding Method Toilet Weight 81.647 kg General: non toxic, no distress, appears at stated age, normal weight Derm: no unusual rashes/lesions no unusual ecchymoses, warm, dry Head: atraumatic, normocephalic, symmetric Eyes: EOMI, no lid lag, anicteric sclera, pupils equal round reactive to light ENT: Nose and ears atraumatic, no thrush, no pharyngeal erythema Neck: No thyromegaly, no cervical lymphadenopathy, trachea midline, supple Mouth: no lip lesion, mucus membranes moist Cardiovascular: S1S2 reg, no murmur, positive posterior tibial pulse bilateral, no edema, capillary refill less than 2 seconds Lungs: CTA bilateral, no rhonchi, no rales , no accessory muscle use Abdominal: soft, right upper quadrant and mild diffuse tenderness to palpation, no guarding, no appreciable organomegaly, normal bowel sounds Ext: no gross muscle atrophy, muscle strength 5 out of 5 in all 4 extremities grossly, no contractures, Neuro: CN II-XI grossly intact, light touch intact all 4 extremities, finger to nose within normal limits, Psych: Alert, oriented, appropriate affect Results CBC & Chem 7: 04/01/20 18:20 04/01/20 18:20 Labs: Abnormal Lab Results - Last 24 Hours (Table) 04/01/20 04/01/20 Range/Units 18:20 18:20 WBC 13.5 H (3.8-10.6) k/uL Hct 47.8 H (34.0-46.0) % Neutrophils # 10.8 H (1.3-7.7) k/uL Sodium 134 L (137-145) mmol/L Carbon Dioxide 21 L (22-30) mmol/L Glucose 123 H (74-99) mg/dL Lipase 342 H (23-300) U/L Thrombosis Risk Factor Assmnt - Choose All That Apply Each Factor Represents 1 point: Age 41-60 years Thrombosis Risk Factor Assessment Total Risk Factor Score: 1 Thrombosis Risk Factor Assessment Level: Low Risk Assessment and Plan Plan: Right upper quadrant abdominal pain, unclear etiology, possibly functional -Consult GI -Antiemetics -Pain control Syncope, likely orthostatic -Check orthostatic vital signs -Fall precautions -Continue with IV fluids -CT brain unremarkable Leukocytosis -No signs of active infection at this time -Possibly acute stress related -Monitor for now Mild lipase elevation -Unclear etiology at this time -Monitor for now Chronic conditions: Fibromyalgia, rheumatoid arthritis, hypothyroidism -Continue with home meds DVT prophylaxis -Heparin subq The patient is admitted with an anticipated less than 2 midnight stay for evaluation of abdominal pain CODE STATUS: Full Code Discussed with: Pain Anticipated discharge date: 1-[address]: Home A total of 40 minutes was spent on the care of this complex patient more than 50% of the time was spent in counseling and care coordination.
[2020-04-02] MEDS ORDERED: ZOLPIDEM 10 MG TAB PO PRN (00:02)
[2020-04-02] MEDS ORDERED: HYDROcodone/APAP 7.5-325MG 1 EACH TAB PO PRN (00:02)
[2020-04-02] MEDS: HEPARIN SODIUM,PORCINE 5,000 UNIT/ML 1 ML VIAL SQ SCH ×3 (00:16→19:18)
[2020-04-02] MEDS: ZOLPIDEM 5 MG TAB PO PRN (00:37)
[2020-04-02] MEDS: HYDROmorphone 0.5 MG/0.5 ML SYRINGE IVP PRN ×6 (01:33→22:15)
[2020-04-02] MEDS: SODIUM CHLORIDE 0.9% 1,000 ML IV SCH ×2 (04:54→12:34)
[2020-04-02 07:16] LABS: Basophils # (A) 0.1 k/uL (0-0.2); Basophils % (A) 1 %; Eosinophils # (A) 0.4 k/uL (0-0.7); Eosinophils % (A) 4 %; Lymphocytes % (A) 21 %; MCHC 32.5 g/dL (31.0-37.0); MCV 98.2 fL (80.0-100.0); Mean Platelet Volume 7.5; Monocytes # (A) 0.6 k/uL (0-1.0); Monocytes % (A) 6 %; Neutrophils # (A) 6.3 k/uL (1.3-7.7); Neutrophils % (A) 67 %; Platelet Count 335 k/uL (150-450); RBC 4.07 m/uL (3.80-5.40); WBC 9.3 k/uL (3.8-10.6)
[2020-04-02 07:32] LABS: ALT 19 U/L (4-34); AST 25 U/L (14-36); African American GFR (CKD) >90 (>60 ml/min/1.73 sqM); Alkaline Phosphatase 61 U/L (38-126); Anion Gap 7 mmol/L; Blood Urea Nitrogen 6 mg/dL (7-17); Carbon Dioxide 25 mmol/L (22-30); Chloride 102 mmol/L (98-107); Glucose 81 mg/dL (74-99); Non-African American GFR(CKD) >90 (>60 ml/min/1.73 sqM); Potassium 4.5 mmol/L (3.5-5.1); Sodium 134 mmol/L (137-145); Total Bilirubin 0.4 mg/dL (0.2-1.3); Total Protein 6.5 g/dL (6.3-8.2)
[2020-04-02] MEDS: HYDROXYCHLOROQUINE SULFATE 200 MG TAB PO SCH ×2 (07:47→20:26)
[2020-04-02] MEDS: ONDANSETRON 4 MG/2 ML VIAL IVP PRN ×2 (07:56→19:17)
[2020-04-02] MEDS: PANTOPRAZOLE 40 MG/10 ML VIAL IVP SCH ×2 (11:09→21:12)
--- NOTE | 2020-04-02 13:15 | P.GSCN ---
<Yamilex Ruiz - Last Filed: 04/02/20 13:04> History of Present Illness Consult date: 04/02/20 Reason for Consult: Intractable abdominal pain History of present illness: CHIEF COMPLAINT: Epigastric and right upper quadrant pain 3 weeks HISTORY OF PRESENT ILLNESS: This is a 44-year-old female with a known past medical history of fibromyalgia, rheumatoid arthritis, kidney stones with previous surgical intervention, hypothyroidism and nicotine dependence. Patient presented to the emergency room with complaints of abdominal pain. She reports having epigastric abdominal pain that radiates to the right upper quadrant for about 3 weeks. She's been also having significant heartburn and nausea. Decrease in her appetite. She really reports having diarrhea. She had 4 episodes of diarrhea yesterday. She reports her abdominal pain about a 9 out of 10. She had been to the ER 2 weeks ago with similar complaints and at that time had an abdominal ultrasound and CAT scan completed. She was scheduled to see a armature connector at the end of this month however, her pain was too severe and she presented to the ER again. Patient also had a syncopal episode yesterday. She reports sitting on the couch and when she went to stand up she passed out. She is not sure how long she passed out for. She awoke to her dog licking her face. Abdominal ultrasound showing contracted gallbladder no evidence of gallstones. And evidence of a nonobstructing 5 mm calculus upper pole right kidney. Patient is afebrile. White count elevated at 13.5 down to 9.3. LFTs are normal. Lipase 342 down to 109. PAST MEDICAL HISTORY: See list. PAST SURGICAL HISTORY: See list. MEDICATIONS: See list. ALLERGIES: See list. SOCIAL HISTORY: No illicit drug use. REVIEW OF SYSTEMS: CONSTITUTIONAL: Denies fever or chills. HEENT: Denies blurred vision, vision changes, or eye pain. Denies hemoptysis ENDOCRINE: Denies heat or cold intolerance. CARDIOVASCULAR: Denies chest pain or pressure. RESPIRATORY: No shortness of breath. GASTROINTESTINAL: Denies abdominal pain. Denies nausea or vomiting. NEURO: Denies history of seizures. PSYCH: No depression or suicidal ideation HEMATOLOGIC: Denies bleeding disorders. LYMPHATIC: The patient denies any lumps and bumps around the neck. GENITOURINARY: Denies any blood in urine or increased urinary frequency. MUSCULOSKELETAL: Denies myalgias. Denies joint swelling. Denies decreased range of motion beyond patients baseline. SKIN: Denies pruitis. Denies rash. PHYSICAL EXAM: VITAL SIGNS: Reviewed GENERAL: Well-developed in no acute distress. HEENT: No sclera icterus. Extraocular movements grossly intact. Moist buccal mucosa. Head is atraumatic, normocephalic. Hears conversational speech. No nasal drainage. NECK: Supple without lymphadenopathy. CHEST: Non-labored respirations and equal bilateral excursions. CARDIOVASCULAR: Regular rate with regular rhythm. Palpable 2+ radial pulses. ABDOMEN: Soft. Nondistended. Right upper quadrant and epigastric tenderness with palpation MUSCULOSKELETAL: No clubbing or cyanosis. NEUROLOGIC: No focal or lateralizing signs. Cranial nerves II through XII gr ossly intact. PSYCH: Appropriate affect. Alert and oriented to person, place and time. SKIN: Well perfused. Good skin turgor. LABORATORY DATA: WBC 13.5 down to 9.3, AST 25 ALT 19 L5 61 total bilirubin 0.4 amylase 81 lipase 342 down to 109 UA negative IMAGING: Abdominal ultrasound revealing contracted gallbladder. No gallstones or dilated ducts. No focal liver defect. Nonobstructing 5 mm calculus upper pole right kidney ASSESSMENT: 1. Right upper quadrant and epigastric abdominal pain with diarrhea. Abdominal ultrasound revealed contracted gallbladder. LFTs are normal 2. History of kidney stones 3. History of rheumatoid arthritis 4. History of fibromyalgia 5. History of nicotine dependence PLAN: 1. HIDA scan ordered 2. Await further recommendations per GI service regarding patient's abdominal pain and diarrhea 3. Agree with IV Protonix 4. Continue DVT prophylaxis subcu heparin Thank you for this consultation. We will continue to follow along with you. Physician Organ Recovery Coordinator note has been reviewed by physician. Signing provider agrees with the documented findings, assessment, and plan of care. Past Medical History Past Medical History: Fibromyalgia, Rheumatoid Arthritis (RA) Additional Past Medical History / Comment(s): hx kidney stones History of Any Multi-Drug Resistant Organisms: None Reported Past Surgical History: Ablation Additional Past Surgical History / Comment(s): uterine ablation, kidney stone Past Anesthesia/Blood Transfusion Reactions: No Reported Reaction Past Psychological History: No Psychological Hx Reported Smoking Status: Current every day smoker Past Alcohol Use History: None Reported Past Drug Use History: None Reported Medications and Allergies Home Medications Medication Instructions Recorded Confirmed Type DULoxetine HCL [Cymbalta] 30 mg PO HS 10/23/15 04/01/20 History Levothyroxine Sodium [Synthroid] 50 mcg PO HS 10/23/15 04/01/20 History Pnv,Calcium 72/Iron/Folic Acid 1 tab PO DAILY 10/23/15 04/01/20 History [ Plus Tablet] Zolpidem [Ambien] 10 mg PO HS PRN 10/23/15 04/01/20 History Chlorzoxazone [Parafon Forte DSC] 500 mg PO DAILY PRN 03/07/17 04/01/20 History Hydroxychloroquine Sulfate 200 mg PO BID 03/07/17 04/01/20 History [Plaquenil] Loratadine [Claritin] 10 mg PO DAILY 03/07/17 04/01/20 History Famotidine [Pepcid] 20 mg PO HS #30 tablet 03/14/20 04/01/20 Rx DULoxetine HCL [Cymbalta] 60 mg PO HS 04/01/20 04/01/20 History Estradiol/Norethindrone Acet 1 tab PO DAILY 04/01/20 04/01/20 History [Lopreeza 1 mg-0.5 mg Tablet] Hydrocodone/Acetaminophen [[place] 1 tab PO QID PRN 04/01/20 04/01/20 History 7.5-325] Ibuprofen [Motrin] 600 mg PO DAILY PRN 04/01/20 04/01/20 History Allergies Allergy/AdvReac Type Severity Reaction Status Date / Time codeine Allergy Chest Verified 04/01/20 17:55 Pain, dyspnea,hives Iodinated Contrast Media Allergy flushed,hot Verified 04/01/20 17:55 [Iodinated Contrast Media - ,nauseated IV Dye] Surgical - Exam Vital Signs Temp Pulse Resp BP Pulse Ox 98.5 F 110 H 18 114/71 100 04/01/20 17:53 04/01/20 17:53 04/01/20 17:53 04/01/20 17:53 04/01/20 17:53 Results - Labs 04/02/20 06:39 04/02/20 06:39 Abnormal Lab Results - Last 24 Hours (Table) 04/01/20 04/01/20 04/02/20 Range/Units 18:20 18:20 06:39 WBC 13.5 H (3.8-10.6) k/uL Hct 47.8 H (34.0-46.0) % Neutrophils # 10.8 H (1.3-7.7) k/uL Sodium 134 L 134 L (137-145) mmol/L Carbon Dioxide 21 L (22-30) mmol/L BUN 6 L (7-17) mg/dL Glucose 123 H (74-99) mg/dL Lipase 342 H (23-300) U/L Diabetes panel 04/01/20 04/02/20 Range/Units 18:20 06:39 Sodium 134 L 134 L (137-145) mmol/L Potassium 4.4 4.5 (3.5-5.1) mmol/L Chloride 101 102 (98-107) mmol/L Carbon Dioxide 21 L 25 (22-30) mmol/L BUN 8 6 L (7-17) mg/dL Creatinine 0.66 0.65 (0.52-1.04) mg/dL Glucose 123 H 81 (74-99) mg/dL Calcium 10.0 9.0 (8.4-10.2) mg/dL AST 30 25 (14-36) U/L ALT 22 19 (4-34) U/L Alkaline Phosphatase 69 61 (38-126) U/L Total Protein 8.0 6.5 (6.3-8.2) g/dL Albumin 5.0 4.0 (3.5-5.0) g/dL Calcium panel 04/01/20 04/02/20 Range/Units 18:20 06:39 Calcium 10.0 9.0 (8.4-10.2) mg/dL Albumin 5.0 4.0 (3.5-5.0) g/dL Pituitary panel 04/01/20 04/02/20 Range/Units 18:20 06:39 Sodium 134 L 134 L (137-145) mmol/L Potassium 4.4 4.5 (3.5-5.1) mmol/L Chloride 101 102 (98-107) mmol/L Carbon Dioxide 21 L 25 (22-30) mmol/L BUN 8 6 L (7-17) mg/dL Creatinine 0.66 0.65 (0.52-1.04) mg/dL Glucose 123 H 81 (74-99) mg/dL Calcium 10.0 9.0 (8.4-10.2) mg/dL Adrenal panel 04/01/20 04/02/20 Range/Units 18:20 06:39 Sodium 134 L 134 L (137-145) mmol/L Potassium 4.4 4.5 (3.5-5.1) mmol/L Chloride 101 102 (98-107) mmol/L Carbon Dioxide 21 L 25 (22-30) mmol/L BUN 8 6 L (7-17) mg/dL Creatinine 0.66 0.65 (0.52-1.04) mg/dL Glucose 123 H 81 (74-99) mg/dL Calcium 10.0 9.0 (8.4-10.2) mg/dL Total Bilirubin 0.4 0.4 (0.2-1.3) mg/dL AST 30 25 (14-36) U/L ALT 22 19 (4-34) U/L Alkaline Phosphatase 69 61 (38-126) U/L Total Protein 8.0 6.5 (6.3-8.2) g/dL Albumin 5.0 4.0 (3.5-5.0) g/dL <Milli Rivera - Last Filed: 04/02/20 16:14> History of Present Illness History of present illness: Patient seen and evaluated with above with additional documentation below HISTORY OF PRESENT ILLNESS: The patient is a 44-year-old female who previously presented to the emergency room at least 2 to 3 weeks ago for epigastric including bilateral upper abdominal pain. At that time, additional studies including ultrasound of the gallbladder was performed as well as computed tomography scan. She denies any family history of gallbladder disease. She reports intolerance to foods at this present time. She reports the pain is a sharp to dull ache that radiates along the epigastric and right upper quadrant. Additionally, patient is pending assessment with armature connector initially as outpatient. She presented on this hospitalization following syncopal episode including epigastric and right upper quadrant abdominal pain. Gen. surgery is consulted due to her abdominal pain. PAST MEDICAL HISTORY: See list and reviewed PAST SURGICAL HISTORY: See list and reviewed MEDICATIONS: See list and reviewed ALLERGIES: See list and reviewed SOCIAL HISTORY: See list and reviewed FAMILY HISTORY: See list and reviewed REVIEW OF ORGAN SYSTEMS: CONSTITUTIONAL: No fevers or chills. EYES: Denies any trouble with vision. No glasses. HEENT: No difficulties with hearing. No nosebleeds. No difficulty swallowing. RESPIRATORY: Denies pneumonia. Denies any troubles with breathing or dyspnea on exertion. CARDIOVASCULAR: Denies any chest pain, palpitations, or recent heart attacks. GASTROINTESTINAL: Has change in bowel habits and gas bloat. Has gastroesophageal reflux disease GENITOURINARY: History of kidney stones NEUROLOGICAL: Denies any numbness or tingling along the distal extremities. MUSCULOSKELETAL: Has back pain, stiffness or joint arthritis. Has rheumatoid arthritis SKIN: No current skin cancer. No rash. PSYCHIATRIC: Has depression. ENDOCRINE: Has thyroid disorders. Denies any blood sugar glucose intolerance. HEME/LYMPHATIC: Denies any lumps and bumps around the neck. No recent deep venous thrombosis. ALLERGY/IMMUNOLOGY: No immunoglobulin therapy. No immune deficiencies. PHYSICAL EXAM: VITALS: Reviewed CONSTITUTIONAL: Well developed and in no acute distress. EYES: Conjuctivae without sclera icterus. Pupils are equally round and reactive to light. Extraocular movements grossly intact. HEAD, EARS, NOSE, THROAT: Moist buccal mucosa. Hears conversational speech. No nasal drainage. NECK: No JV distention. No thyroidomegaly. RESPIRATORY: Non-labored respirations and equal bilateral excursions. No gross wheezes. CARDIOVASCULAR: Extremities without moderate edema. Palpable 2+ radial pulses. ABDOMEN: Soft. No peritonitis. Tender epigastrium including right upper quadrant. LYMPH: No neck lymphadenopathy. MUSCULOSKELETAL: Nail and fingers with good capillary refill. SKIN: Warm and well perfused with good skin turgor. NEUROLOGIC: Cranial nerves II through XII grossly intact. Sensation upper and extremities intact. No focal or lateralizing signs. PSYCH: Alert and oriented to person, place and time. Displays appropriate insight. CLINCAL LABS: Reviewed. WBC presentation elevated 13.5. LFTs normal. IMAGING: Independently reviewed ultrasound gallbladder from previous hospital visit demonstrating gallbladder wall thickening 3 mm. Questionable sludge within the gallbladder identified. Current CT of the abdomen and pelvis without free air, bowel obstruction, gross abnormality. RADIOLOGY: Report reviewed. Ultrasound demonstrates right kidney stone since previous ultrasound 2-3 weeks ago. No evidence of gallstones identified in recent ultrasound. RECORDS: previous records reviewed ASSESSMENT: 1. Upper quadrant abdominal pain 2. Change in bowel habits 3. Gastroesophageal reflux disease 4. Right kidney stone PLAN: 1. Recommend HIDA scan to evaluate biliary dyskinesia versus cholecystitis. 2. Also agree with GI consultation for change in bowel habits and abdominal pain 3. May benefit from upper and lower endoscopies with change in bowel habits including gastroesophageal reflux disease of epigastric abdominal pain. Thank you for this kind consultation. Surgical - Exam Vital Signs Temp Pulse Resp BP Pulse Ox 98.5 F 110 H 18 114/71 100 04/01/20 17:53 04/01/20 17:53 04/01/20 17:53 04/01/20 17:53 04/01/20 17:53 Results - Labs 04/02/20 06:39 04/02/20 06:39 Abnormal Lab Results - Last 24 Hours (Table) 04/01/20 04/01/20 04/02/20 Range/Units 18:20 18:20 06:39 WBC 13.5 H (3.8-10.6) k/uL Hct 47.8 H (34.0-46.0) % Neutrophils # 10.8 H (1.3-7.7) k/uL Sodium 134 L 134 L (137-145) mmol/L Carbon Dioxide 21 L (22-30) mmol/L BUN 6 L (7-17) mg/dL Glucose 123 H (74-99) mg/dL Lipase 342 H (23-300) U/L Diabetes panel 04/01/20 04/02/20 Range/Units 18:20 06:39 Sodium 134 L 134 L (137-145) mmol/L Potassium 4.4 4.5 (3.5-5.1) mmol/L Chloride 101 102 (98-107) mmol/L Carbon Dioxide 21 L 25 (22-30) mmol/L BUN 8 6 L (7-17) mg/dL Creatinine 0.66 0.65 (0.52-1.04) mg/dL Glucose 123 H 81 (74-99) mg/dL Calcium 10.0 9.0 (8.4-10.2) mg/dL AST 30 25 (14-36) U/L ALT 22 19 (4-34) U/L Alkaline Phosphatase 69 61 (38-126) U/L Total Protein 8.0 6.5 (6.3-8.2) g/dL Albumin 5.0 4.0 (3.5-5.0) g/dL Calcium panel 04/01/20 04/02/20 Range/Units 18:20 06:39 Calcium 10.0 9.0 (8.4-10.2) mg/dL Albumin 5.0 4.0 (3.5-5.0) g/dL Pituitary panel 04/01/20 04/02/20 Range/Units 18:20 06:39 Sodium 134 L 134 L (137-145) mmol/L Potassium 4.4 4.5 (3.5-5.1) mmol/L Chloride 101 102 (98-107) mmol/L Carbon Dioxide 21 L 25 (22-30) mmol/L BUN 8 6 L (7-17) mg/dL Creatinine 0.66 0.65 (0.52-1.04) mg/dL Glucose 123 H 81 (74-99) mg/dL Calcium 10.0 9.0 (8.4-10.2) mg/dL Adrenal panel 04/01/20 04/02/20 Range/Units 18:20 06:39 Sodium 134 L 134 L (137-145) mmol/L Potassium 4.4 4.5 (3.5-5.1) mmol/L Chloride 101 102 (98-107) mmol/L Carbon Dioxide 21 L 25 (22-30) mmol/L BUN 8 6 L (7-17) mg/dL Creatinine 0.66 0.65 (0.52-1.04) mg/dL Glucose 123 H 81 (74-99) mg/dL Calcium 10.0 9.0 (8.4-10.2) mg/dL Total Bilirubin 0.4 0.4 (0.2-1.3) mg/dL AST 30 25 (14-36) U/L ALT 22 19 (4-34) U/L Alkaline Phosphatase 69 61 (38-126) U/L Total Protein 8.0 6.5 (6.3-8.2) g/dL Albumin 5.0 4.0 (3.5-5.0) g/dL Assessment and Plan (1) Right upper quadrant abdominal pain Current Visit: Yes Status: Acute Code(s): R10.11 - RIGHT UPPER QUADRANT PAIN SNOMED Code(s): 151212819 (2) Right kidney stone Current Visit: Yes Status: Acute Code(s): N20.0 - CALCULUS OF KIDNEY SNOMED Code(s): 10337527 (3) Fibromyalgia Current Visit: Yes Status: Acute Code(s): M79.7 - FIBROMYALGIA SNOMED Code(s): 919112248 (4) Change in bowel habits Current Visit: Yes Status: Acute Code(s): R19.4 - CHANGE IN BOWEL HABIT SNOMED Code(s): 759309973 (5) Gastroesophageal reflux disease Current Visit: Yes Status: Acute Code(s): K21.9 - GASTRO-ESOPHAGEAL REFLUX DISEASE WITHOUT ESOPHAGITIS SNOMED Code(s): 117520955
--- NOTE | 2020-04-02 16:45 | P.PN ---
Subjective Progress Note Date: 04/02/20 Principal diagnosis: Patient was seen and examined. No acute events overnight. Patient reports improvement in her right upper quadrant abdominal pain with current pain medications. Able to tolerate clear liquids. She denies any chest pain, shortness breath or palpitations. No nausea or vomiting. No fever or chills. Objective - Vital Signs Vital signs: Vital Signs Temp 97.9 F 04/02/20 15:00 Pulse 83 04/02/20 15:00 Resp 12 04/02/20 15:00 BP 127/59 04/02/20 15:00 Pulse Ox 99 04/02/20 15:00 Intake & Output 04/01/20 04/02/20 04/02/20 18:59 06:59 18:59 Intake Total 450 800 Balance 450 800 Weight 81.647 kg 81.647 kg Intake: Intake, IV Titration 800 Amount Sodium Chloride 0.9% 1, 800 000 ml @ 125 mls/hr IV . Q8H [facility] Rx#:[id number] Oral 450 Other: Voiding Method Toilet - Exam General: [non toxic], [no distress], [appears at stated age] Derm: [warm], [dry] Head: [atraumatic], [normocephalic], [symmetric] Eyes: [EOMI], [no lid lag], [anicteric sclera] Mouth: [no lip lesion], [mucus membranes moist] Cardiovascular: [S1S2 reg], [no murmur], [positive posterior tibial pulse bilateral], Lungs: [CTA bilateral], [no rhonchi, no rales] , [no accessory muscle use] Abdominal: [soft], [diffuse tenderness to palpation in all 4 quadrants without rebound worsened in the right upper quadrant positive Melendez], [no guarding], [no appreciable organomegaly] Ext: [no gross muscle atrophy], [no edema], [no contractures] Neuro: [no focal neuro deficits] Psych: [Alert], [oriented], [appropriate affect] - Labs CBC & Chem 7: 04/02/20 06:39 04/02/20 06:39 Labs: Abnormal Lab Results - Last 24 Hours (Table) 04/01/20 04/01/20 04/02/20 Range/Units 18:20 18:20 06:39 WBC 13.5 H (3.8-10.6) k/uL Hct 47.8 H (34.0-46.0) % Neutrophils # 10.8 H (1.3-7.7) k/uL Sodium 134 L 134 L (137-145) mmol/L Carbon Dioxide 21 L (22-30) mmol/L BUN 6 L (7-17) mg/dL Glucose 123 H (74-99) mg/dL Lipase 342 H (23-300) U/L Assessment and Plan Assessment: Right upper quadrant abdominal pain, unclear etiology, possibly functional -Consult GI, plans for HIDA scan today -Antiemetics -Pain control Syncope, likely orthostatic -Orthostatic vitals negative -Fall precautions -DC IVF and encourage hydration by mouth -CT brain unremarkable Resolved: Leukocytosis, elevated lipase Chronic conditions: Fibromyalgia, rheumatoid arthritis, hypothyroidism -Continue with home meds DVT prophylaxis -Heparin subq Patient admitted for abdominal pain unknown etiology. Plans for HIDA scan today. GI and surgery on board. She is pending clinical improvement. Likely DC tomorrow.
--- NOTE | 2020-04-02 20:12 | NM ---
EXAMINATION TYPE: NM hepatobiliary w CCK DATE OF EXAM: 04/02/2020 COMPARISON: CT 03/14/2020 HISTORY: Right upper quadrant pain TECHNIQUE: After the intravenous administration of 5.2 mCi Tc 99m Mebrofenin hepatobiliary scintigrap hy is performed. Immediate images post injection. FINDINGS: There is satisfactory initial accumulation of tracer by the liver. The gallbladder is visualized with in 5 minutes of the initiation of radiopharmaceutical delivery. The small bowel activity is noted wit hin 10 minutes. At one hour CCK was administered, patient was injected with 1.6 mcg of Kinevac, and gallbladder ejection fraction is calculated at 89 %, which is in the normal range. Therefore there i s no scintigraphic evidence of cystic or common bile duct obstruction to suggest acute cholecystitis or gallbladder dyskinesia. IMPRESSION: Negative examination.
[2020-04-02] MEDS ORDERED: LEVOTHYROXINE 50 MCG TAB PO SCH (21:00)
[2020-04-02] MEDS ORDERED: DULoxetine HCL 30 MG CAPSULE.DR PO SCH (21:00)
--- NOTE | 2020-04-02 21:34 | CONS ---
CONSULTATION DATE OF SERVICE: April 02, 2020 REQUESTING PHYSICIAN: Dr. María Elena Hutchison. REASON FOR CONSULTATION: Abdominal pain and right upper quadrant abdominal pain for the last 2 weeks duration. HISTORY OF PRESENT ILLNESS: The patient is a 44-year-old pleasant white female who was admitted to the hospital when she presented with epigastric and right upper quadrant abdominal pain for the last 2 weeks duration. Pain initially has intermittent and for the last few days, it progressively got worse, mostly in the epigastric area and in the abdominal area associated with some nausea and no vomiting. Symptoms are worse with eating. She did have ultrasound of the gallbladder done that did not show any evidence of gallstones and there was a contracted gallbladder. She came to the emergency room with similar complaints 3 weeks ago and had a CT of the abdomen and pelvis done at that time that was unremarkable. She has been taking NSAIDs on a regular basis. No prior history of peptic ulcer disease. PAST MEDICAL HISTORY: Significant for fibromyalgia and rheumatoid arthritis. PAST SURGICAL HISTORY: Uterine ablation. MEDICATIONS: Medications at home include Cymbalta, Plaquenil, Claritin, Pepcid, folic acid, Synthroid, Motrin, [place], and . ALLERGIES: CODEINE and IODINE IV DYE. SOCIAL HISTORY: Chronic smoker. No alcohol use. FAMILY HISTORY: Unremarkable. REVIEW OF SYSTEMS: CARDIOPULMONARY: No chest pain or shortness of breath. : No dysuria or hematuria. MUSCULOSKELETAL unremarkable. SKIN unremarkable. ENDOCRINE unremarkable. PSYCHIATRIC: Unremarkable. NEUROLOGY: Unremarkable. ENT/VISION: Unremarkable. CONSTITUTIONAL: No recent weight loss. No fever, chills, night sweats. PHYSICAL EXAMINATION: She appears comfortable. No apparent distress. Vital signs stable. Blood pressure is 128/68. Pulse rate 88 per minute and afebrile. HEENT examination unremarkable. Conjunctivae pink. Sclerae anicteric. Oral cavity no lesions. NECK no JVD or lymph node enlargement. CHEST: Clear to auscultation. HEART: Regular rate and rhythm. ABDOMEN: Soft. Bowel sounds are positive. No organomegaly. Mild tenderness in the epigastric area as well as right upper quadrant area. EXTREMITIES: No pedal edema. SKIN no rashes. NEUROLOGIC: Alert and oriented x3. No focal deficits. LABS: WBC 13.5, hemoglobin 15.5, platelets normal. Basic metabolic panel is within normal limits. ALT, AST, T-bilirubin, alk phos are normal. Lipase of 342. Today it is 109. Today's lab WBC 10.5. Rest of the labs are within normal limits. As mentioned earlier, CT of the abdomen and pelvis done on March 14 was normal and ultrasound of the abdomen done yesterday was unremarkable other than contracted gallbladder. IMPRESSION: 1. This is a lady who presented with epigastric and right upper quadrant abdominal pain for the last 3 weeks duration associated with nausea and occasional emesis. The pain has been worse with food intake, has been taking NSAIDs for history of rheumatoid arthritis. Possibility of peptic ulcer disease needs to be considered. She did have ultrasound as well as CT scan of the abdomen and both unremarkable. 2. History of rheumatoid arthritis. 3. History of fibromyalgia. RECOMMENDATIONS: 1. Continue Protonix 40 mg daily. 2. Antiemetics as needed. 3. Keep her on clear liquid diet. 4. We will proceed with an upper endoscopy tomorrow. 5. The patient already scheduled for HIDA scan, results of which are still pending. 6. We will follow with you closely. Thank you for this consultation. MMODL / IJN: [id number] /
[2020-04-03] MEDS: ZOLPIDEM 5 MG TAB PO PRN (00:28)
[2020-04-03] MEDS: HEPARIN SODIUM,PORCINE 5,000 UNIT/ML 1 ML VIAL SQ SCH (00:28)
[2020-04-03] MEDS ORDERED: diphenhydrAMINE 25 MG CAP PO ONE (01:14)
[2020-04-03] MEDS ORDERED: DULoxetine HCL 60 MG CAPSULE.DR PO SCH ×2 (01:26→21:00)
[2020-04-03] MEDS: HYDROmorphone 0.5 MG/0.5 ML SYRINGE IVP PRN ×4 (01:33→14:52)
[2020-04-03] MEDS: ONDANSETRON 4 MG/2 ML VIAL IVP PRN (08:03)
[2020-04-03 10:05] VITALS: TEMP 98.9
[2020-04-03] MEDS: HYDROXYCHLOROQUINE SULFATE 200 MG TAB PO SCH (10:06)
[2020-04-03] MEDS: PANTOPRAZOLE 40 MG/10 ML VIAL IVP SCH (10:06)
--- NOTE | 2020-04-03 12:04 | P.PN ---
<Yamilex Ruiz - Last Filed: 04/03/20 11:56> Subjective Progress Note Date: 04/03/20 CHIEF COMPLAINT: Epigastric and right upper quadrant pain HISTORY OF PRESENT ILLNESS: patient reports some improvement in her abdominal pain. Her diarrhea has resolved. She is scheduled for an EGD today with GI service. HIDA scan was negative. Afebrile. WBC 9.3 PHYSICAL EXAM: VITAL SIGNS: Reviewed. GENERAL: Well-developed in no acute distress. HEENT: No sclera icterus. Extraocular movements grossly intact. Moist buccal mucosa. Head is atraumatic, normocephalic. ABDOMEN: Soft. Nondistended. tenderness in the epigastric area NEUROLOGIC: Alert and oriented. Cranial nerves II through XII grossly intact. ASSESSMENT: 1. Right upper quadrant and epigastric abdominal pain with diarrhea. Abdominal ultrasound revealed contracted gallbladder. LFTs are normal. HIDA scan completed and is negative 2. Change in bowel habits 3. Gastroesophageal reflux disease 4. Right kidney stone 5. History of rheumatoid arthritis 6. History of fibromyalgia 7. History of nicotine dependence PLAN: 1. EGD today per GI service 2. patient to follow-up with Dr. Rivera in the office in one week for outpatient management regarding her contracted gallbladder 3. Agree with IV Protonix 4. Continue DVT prophylaxis subcu heparin Physician [employer] note has been reviewed by physician. Signing provider agrees with the documented findings, assessment, and plan of care. Objective - Vital Signs Vital signs: Vital Signs Temp 98.9 F 04/03/20 09:00 Pulse 87 04/03/20 09:00 Resp 16 04/03/20 09:00 BP 122/61 04/03/20 09:00 Pulse Ox 96 04/03/20 03:00 Intake & Output 04/02/20 04/03/20 04/03/20 18:59 06:59 18:59 Intake Total 800 500 Balance 800 500 Intake: Intake, IV Titration 800 500 Amount Sodium Chloride 0.9% 1, 800 500 000 ml @ 125 mls/hr IV . Q8H [facility] Rx#:[id number] Other: # Voids 1 - Labs CBC & Chem 7: 04/02/20 06:39 04/02/20 06:39 <Milli Rivera - Last Filed: 04/03/20 16:01> Subjective Patient seen and evaluated with above. Please see additional recommendations. CHIEF COMPLAINT: Epigastric abdominal pain HISTORY OF PRESENT ILLNESS: The patient is a 44-year-old female who presented with epigastric and right upper quadrant abdominal pain. She reports feeling better today. She is pending EGD today. ROS: No fevers or chills. No new chest pain. No productive sputum PHYSICAL EXAM: VITAL SIGNS: Reviewed CONSTITUTIONAL: Well developed and in no acute distress. EYES: Conjuctivae without sclera icterus. Extraocular movements grossly intact. HEAD, EARS, NOSE, THROAT: Moist buccal mucosa. Head is atraumatic, normocephalic. Hears conversational speech. No nasal drainage. NECK: Supple. No thyroidomegaly. RESPIRATORY: Non-labored respirations and equal bilateral excursions. CARDIOVASCULAR: Palpable 2+ radial pulses. ABDOMEN: Soft. No peritonitis. Epigastric tenderness. Decreased right upper quadrant tenderness. MUSCULOSKELETAL: No gross deformity of the lower extremities noted. No clubbing. No cyanosis. SKIN: Good skin turgor. Well perfused. NEUROLOGIC: Cranial nerves II through XII grossly intact. No focal or later alizing signs. PSYCH: Appropriate affect. Alert and oriented to person, place and time. CLINICAL LABS: Reviewed. White blood cell count normal, 6.3. STUDIES: I personally reviewed her HIDA scan with illumination of the gallbladder found. Features consistent with no acute cholecystitis. Ejection fraction over 35% identified. ASSESSMENT: 1. Epigastric abdominal pain 2. Right upper quadrant abdominal pain PLAN: 1. Upper endoscopy per GI. 2. From a surgical standpoint, patient stable for discharge once medically cleared and cleared by gastroenterology. 3. May follow up as outpatient as needed. ADDENDUM: Upper endoscopy report revealed consistent with esophageal ulcers including gastritis. Objective - Vital Signs Vital signs: Vital Signs Temp 98.9 F 04/03/20 09:00 Pulse 87 04/03/20 09:00 Resp 16 04/03/20 09:00 BP 122/61 04/03/20 09:00 Pulse Ox 96 04/03/20 03:00 Intake & Output 04/02/20 04/03/20 04/03/20 18:59 06:59 18:59 Intake Total 800 500 100 Balance 800 500 100 Intake: IV 100 Intake, IV Titration 800 500 Amount Sodium Chloride 0.9% 1, 800 500 000 ml @ 125 mls/hr IV . Q8H [facility] Rx#:[id number] Other: # Voids 1 1 - Labs CBC & Chem 7: 04/02/20 06:39 04/02/20 06:39 Assessment and Plan (1) Right upper quadrant abdominal pain Current Visit: Yes Status: Acute Code(s): R10.11 - RIGHT UPPER QUADRANT PAIN SNOMED Code(s): 188927487 (2) Right kidney stone Current Visit: Yes Status: Acute Code(s): N20.0 - CALCULUS OF KIDNEY SNOMED Code(s): 73806790 (3) Fibromyalgia Current Visit: Yes Status: Acute Code(s): M79.7 - FIBROMYALGIA SNOMED Code(s): 807331529 (4) Change in bowel habits Current Visit: Yes Status: Acute Code(s): R19.4 - CHANGE IN BOWEL HABIT SNOMED Code(s): 115521339 (5) Gastroesophageal reflux disease Current Visit: Yes Status: Acute Code(s): K21.9 - GASTRO-ESOPHAGEAL REFLUX DISEASE WITHOUT ESOPHAGITIS SNOMED Code(s): 108580203 (6) Gastritis Current Visit: Yes Status: Acute Code(s): K29.70 - GASTRITIS, UNSPECIFIED, WITHOUT BLEEDING SNOMED Code(s): 2083422 (7) Esophagitis Current Visit: Yes Status: Acute Code(s): K20.9 - ESOPHAGITIS, UNSPECIFIED SNOMED Code(s): 47952723
[2020-04-03] MEDS ORDERED: LIDOCAINE 1% INJ 10MG/ML (20 ML MDV) ONE (14:17)
[2020-04-03] MEDS ORDERED: ONDANSETRON 4 MG/2 ML VIAL ONE (14:17)
[2020-04-03] MEDS ORDERED: PROPOFOL 10 MG/ML 20 ML VIAL IV ONE (14:17)
[2020-04-03] MEDS ORDERED: IV FLUID CONTINUATION 1,000 ML IV ONE (14:20)
--- NOTE | 2020-04-03 14:30 | P.PCN ---
Date of Procedure: 04/03/20 Procedure(s) Performed: BRIEF HISTORY: Patient is a 44-year-old, pleasant, white female in the hospital with severe epigastric pain for the last 3 weeks' duration. Has intermittent nausea vomiting. She is scheduled for an upper endoscopy to evaluate further. PROCEDURE PERFORMED: Esophagogastroduodenoscopy with biopsy. PREOPERATIVE DIAGNOSIS: Epigastric pain/nausea vomiting of 3 weeks' duration. IV sedation per anesthesia. PROCEDURE: After informed consent was obtained, the patient was brought into the endoscopy unit. IV sedation was administered by Anesthesia under continuous monitoring. Initially the Olympus GIF-140 video endoscope was inserted into the mouth. Esophagus intubated without any difficulty. It was gradually advanced into the stomach and duodenum and carefully examined. The bulb and the second part of the duodenum appeared normal. The scope at this time was withdrawn to th e stomach, adequately insufflated with air, and upon careful examination, mucosa of the antrum, had scattered erosions consistent with gastritis. Body body, cardia and the fundus appeared normal. The scope was then withdrawn into the esophagus. The GE junction was located at 39 cm from the incisors. There was some thickened folds noted in the distal esophagus and there was one area. There was a small pill that was stuck in the distal esophagus creating a superficial ulceration which was biopsied. The rest of esophagus appeared normal. There were no erosions or ulcerations seen and the patient tolerated the procedure well. IMPRESSION: 1. Antral erosive gastritis. 2. Thickened folds in the distal esophagus and there was one area where there was a small pill stuck creating a superficial ulceration in the distal esophagus consistent with pill-induced esophagitis RECOMMENDATIONS: The findings of this examination were discussed with the patient. Diet will be advanced as tolerated. Continue with Protonix 40 mg twice daily.
--- NOTE | 2020-04-03 15:24 | P.DS ---
Providers Date of admission: 04/01/20 20:08 Expected date of discharge: 04/03/20 Attending physician: Jazmine Lyons MD Consults: 04/01/20 20:14 Consult Physician Routine Consulting Provider: Ericka Bernard Consult Reason/Comments: intractable abdominal pain Do you want consulting provider notified?: Yes 04/01/20 20:15 Consult Physician Routine Consulting Provider: Milli Rivera Consult Reason/Comments: intractable abdominal pain Do you want consulting provider notified?: Yes Primary care physician: [facility] Course: The patient is a 44-year-old female with a PMH of fibromyalgia, kidney stones, rheumatoid arthritis, and hypothyroidism, who presents to the ED with complaints of abdominal pain. The patient reports that for the past 3 weeks, she has had ongoing right upper quadrant abdominal pain. She reports that as intermittent, exacerbated with any kind of food and laying down, alleviated with sitting up, initially radiating to her chest and now to her back for the past few days, 7 out of 10 at maximum intensity. She also reports intermittent constipation and diarrhea. Notes that her diet is somewhat limited due to her pain, and she eats mostly fruits, oatmeal, and other soft foods including smoothies. The patient was previously seen in the emergency room on 03/14 with similar complaints at which time an abdominal computed tomography scan was unremarkable. She reports having an appointment with a director of market intelligence as an outpatient at the end of the month, though is unable to weight that long due to the intensity of the pain. She also notes that she had an episode of loss of consciousness yesterday when she was sitting down chair, and stood up, subsequently developing lightheadedness. She woke up on the ground after an unknown amount of time. No one witnessed the fall. She does note hitting her head. Denied prodromal chest discomfort, palpitations. Denied urinary incontinence or tongue biting. Denied any shaking movements. She notes that she is currently not working and at home with her 2 children and her . She reports drinking "a lot"of water recently since she is concerned about her diarrhea, with 4 watery stools yesterday. Denied episodes of vomiting. A right upper quadrant ultrasound revealed a contracted gallbladder with no stones or dilated ducts along with a nonobstructing 5 mm right upper pole kidney calculus. On the laboratory evaluation, she had leukocytosis of 13.5, with hyponatremia 134, and elevated lipase of 342. Repeat lipase was negative. Her leukocytosis resolved on day one of admission. GI was consulted along with general surgery and recommended HIDA scan. HIDA scan was negative. Patient was seen and examined. No acute events overnight. She does report that she takes [place] for chronic pain. Patient states that she ran out of her [place] on Monday and has an appointment coming up on the with her PCP for refill. She does complain of some heartburn and bloating. General: [non toxic], [no distress], [appears at stated age] Derm: [warm], [dry] Head: [atraumatic], [normocephalic], [symmetric] Eyes: [EOMI], [no lid lag], [anicteric sclera] Mouth: [no lip lesion], [mucus membranes moist] Cardiovascular: [S1S2 reg], [no murmur], [positive posterior tibial pulse bilateral], Lungs: [CTA bilateral], [no rhonchi, no rales] , [no accessory muscle use] Abdominal: [soft], [diffuse tenderness to palpation in all 4 quadrants without rebound worsened in the right upper quadrant positive Melendez], [no guarding], [no appreciable organomegaly] Ext: [no gross muscle atrophy], [no edema], [no contractures] Neuro: [no focal neuro deficits] Psych: [Alert], [oriented], [appropriate affect] Right upper quadrant abdominal pain, unclear etiology, possibly functional -Consult GI, plans for HIDA scan which was negative -Plans for EGD -Antiemetics -Pain control Syncope, likely orthostatic -Orthostatic vitals negative -Fall precautions -DC IVF and encourage hydration by mouth -CT brain unremarkable Resolved: Leukocytosis, elevated lipase Chronic conditions: Fibromyalgia, rheumatoid arthritis, hypothyroidism -Continue with home meds DVT prophylaxis -Heparin subq Patient admitted for abdominal pain unknown etiology. HIDA scan negative. Plans to do EGD today. Continue Protonix by mouth at home. Plans for DC home today after EGD. Pertinent Studies: HIDA scan, brain CT, KUB, abdominal ultrasound Patient Condition at Discharge: Stable Plan - Discharge Summary Discharge Rx Participant: No New Discharge Prescriptions: New HYDROcodone/APAP 7.5-325MG [[place] 7.5-325] 1 tab PO Q4H PRN 3 Days #18 tab PRN Reason: Pain Continue Zolpidem [Ambien] 10 mg PO HS PRN PRN Reason: sleep Levothyroxine Sodium [Synthroid] 50 mcg PO HS DULoxetine HCL [Cymbalta] 30 mg PO HS Pnv,Calcium 72/Iron/Folic Acid [ Plus Tablet] 1 tab PO DAILY Chlorzoxazone [Parafon Forte DSC] 500 mg PO DAILY PRN PRN Reason: muscle spasm Loratadine [Claritin] 10 mg PO DAILY Hydroxychloroquine Sulfate [Plaquenil] 200 mg PO BID Famotidine [Pepcid] 20 mg PO HS #30 tablet DULoxetine HCL [Cymbalta] 60 mg PO HS Ibuprofen [Motrin] 600 mg PO DAILY PRN PRN Reason: Pain Hydrocodone/Acetaminophen [[place] 7.5-325] 1 tab PO QID PRN PRN Reason: Pain Estradiol/Norethindrone Acet [Lopreeza 1 mg-0.5 mg Tablet] 1 tab PO DAILY Discharge Medication List DULoxetine HCL [Cymbalta] 30 mg PO HS 10/23/15 [History] Levothyroxine Sodium [Synthroid] 50 mcg PO HS 10/23/15 [History] Pnv,Calcium 72/Iron/Folic Acid [ Plus Tablet] 1 tab PO DAILY 10/23/15 [History] Zolpidem [Ambien] 10 mg PO HS PRN 10/23/15 [History] Chlorzoxazone [Parafon Forte DSC] 500 mg PO DAILY PRN 03/07/17 [History] Hydroxychloroquine Sulfate [Plaquenil] 200 mg PO BID 03/07/17 [History] Loratadine [Claritin] 10 mg PO DAILY 03/07/17 [History] Famotidine [Pepcid] 20 mg PO HS #30 tablet 03/14/20 [Rx] DULoxetine HCL [Cymbalta] 60 mg PO HS 04/01/20 [History] Estradiol/Norethindrone Acet [Lopreeza 1 mg-0.5 mg Tablet] 1 tab PO DAILY 04/01/20 [History] Hydrocodone/Acetaminophen [[place] 7.5-325] 1 tab PO QID PRN 04/01/20 [History] Ibuprofen [Motrin] 600 mg PO DAILY PRN 04/01/20 [History] HYDROcodone/APAP 7.5-325MG [[place] 7.5-325] 1 tab PO Q4H PRN 3 Days #18 tab 04/03/20 [Rx] Follow up Appointment(s)/Referral(s): Milli Rivera MD [STAFF PHYSICIAN] - 1 Week Ericka Bernard MD [STAFF PHYSICIAN] - 1 Week María Elena Dunham MD [Primary Care Provider] - 1-2 days Patient Instructions/Handouts: Gastritis (GEN), Acute Nausea and Vomiting (GEN) Activity/Diet/Wound Care/Special Instructions: Diet: Regular FU PCP within 3 days of DC. FU with Surgery and GI within 1 week of DC. Come back to the ED for worsening abdominal pain. Discharge Disposition: HOME SELF-CARE
[2020-04-03 17:11] VITALS: BP 114/60; PULSE 71; RESP 17
== END 2020-04-03 17:54 | disposition home or self-care (01) ==
LOC: EC 17:45 → 1SOBS 20:08
PROVIDERS: ADMIT Family Medicine; ATTEND Family Medicine
DX: K29.50 Unspecified chronic gastritis without bleeding (principal); K25.9 Gastric ulcer, unspecified as acute or chronic, without hemorrhage or perforation; T18.198A Other foreign object in esophagus causing other injury, initial encounter; K21.0 Gastro-esophageal reflux disease with esophagitis; K22.10 Ulcer of esophagus without bleeding; K31.89 Other diseases of stomach and duodenum; K22.8 Other specified diseases of esophagus; K82.0 Obstruction of gallbladder; D72.829 Elevated white blood cell count, unspecified; R74.8 Abnormal levels of other serum enzymes; R55 Syncope and collapse; N20.0 Calculus of kidney; E87.1 Hypo-osmolality and hyponatremia; G89.29 Other chronic pain; M79.7 Fibromyalgia; M06.9 Rheumatoid arthritis, unspecified; E03.9 Hypothyroidism, unspecified; F17.200 Nicotine dependence, unspecified, uncomplicated; Z79.899 Other long term (current) drug therapy; Z79.890 Hormone replacement therapy; Z88.5 Allergy status to narcotic agent; Z91.041 Radiographic dye allergy status; Z87.442 Personal history of urinary calculi; Z98.890 Other specified postprocedural states; Z79.891 Long term (current) use of opiate analgesic; Z79.1 Long term (current) use of non-steroidal anti-inflammatories (NSAID); X58.XXXA Exposure to other specified factors, initial encounter
CPT/HCPCS: 96361 ×2; 96372; 96376 ×2; 96374; 96375; 99285; 36415; 88305; 80053 ×2; 82150; 83605; 83690 ×2; 85025 ×2; 81003; 81025; 74018; 76705; 70450; 78227; 43239; G0378 ×3; A9537; J1644 ×2; J2405 ×3; J2805; J2001; J1885; J2704; C9113 ×2; J1170 ×3

== ENCOUNTER → 2020-12-30 | Outpatient (CLI) | payer MEDICARE ==
--- NOTE | 2020-12-31 13:15 | MM ---
Reason for exam: screening (asymptomatic). Last mammogram was performed 2 years and 3 months ago. History: Patient is postmenopausal. Family history of breast cancer in mother and breast cancer in maternal grandmother. Taking hormonal contraceptives for 6 years. Took estrogen for 3 years. Physical Findings: A clinical breast exam by your physician is recommended on an annual basis and results should be correlated with mammographic findings. MG 3D Screening Mammo W/Cad Bilateral CC and MLO view(s) were taken. Prior study comparison: September 18, 2018, bilateral MG 3d screening mammo w/cad. November 02, 2016, bilateral MG screening mammo w CAD. The breast tissue is heterogeneously dense. This may lower the sensitivity of mammography. There is chronic nodularity bilaterally. There is no discrete abnormality. ASSESSMENT: Benign, BI-RAD 2 RECOMMENDATION: Routine screening mammogram of both breasts in 1 year.
== END | disposition home or self-care (01) ==
LOC: RADMAMWWP 16:40
PROVIDERS: ATTEND Family Medicine
DX: Z12.31 Encounter for screening mammogram for malignant neoplasm of breast (principal); Z78.0 Asymptomatic menopausal state; Z80.3 Family history of malignant neoplasm of breast
CPT/HCPCS: 77063; 77067

== ENCOUNTER 2021-09-02 23:33 | Emergency (ER) | payer MEDICARE ==
[2021-09-02 23:39] VITALS: BP 153/91; PULSE 117; RESP 20; TEMP 97.8
[2021-09-02] MEDS ORDERED: HYDROcodone/APAP 5-325MG 1 EACH TAB PO STA (23:55)
[2021-09-02] MEDS ORDERED: DEXAMETHASONE SOD PHOSPHATE 10 MG/ML 1 ML VIAL IM STA (23:56)
[2021-09-03] MEDS ORDERED: PROMETHAZINE HCL 6.25 MG/5 ML CUP PO ONE (00:15)
--- NOTE | 2021-09-03 00:30 | XR ---
EXAMINATION TYPE: XR chest 2V DATE OF EXAM: 09/03/2021 COMPARISON: NONE HISTORY: Cough and short of breath TECHNIQUE: 2 views FINDINGS: There is slight increased pulmonary interstitial density. There is no pulmonary consolidati on. Heart and mediastinum are normal. There is no pleural effusion. Bony thorax is intact. IMPRESSION: Slight increased interstitial markings. No pulmonary consolidation or heart failure.
[2021-09-03] MEDS ORDERED: AZITHROMYCIN 500 MG TAB PO STA (01:19)
--- NOTE | 2021-09-03 01:22 | ED ---
URI HPI - General Chief Complaint: Upper Respiratory Infection Stated Complaint: Difficulty Breathing, Cough Time Seen by Provider: 09/02/21 23:42 Source: patient Mode of arrival: wheelchair Limitations: physical limitation - History of Present Illness Initial Comments: 45-year-old female patient presented to the emergency department today for evaluation of persistent cough. States her cough is quite painful. States she is coughing up sputum she is unsure what color. Denies any fever or chills. States she has had nasal congestion and drainage. She did take 2 home COVID-19 tests which were negative. She did take Mucinex prior to coming in. She tried an albuterol breathing treatment without much relief. She does have history of smoking. No diagnosis of COPD. She denies any dizziness, weakness, sweats. Denies any nausea, vomiting, or diarrhea. - Related Data Home Medications Medication Instructions Recorded Confirmed DULoxetine HCL [Cymbalta] 30 mg PO HS 10/23/15 04/01/20 Levothyroxine Sodium [Synthroid] 50 mcg PO HS 10/23/15 04/01/20 Pnv,Calcium 72/Iron/Folic Acid 1 tab PO DAILY 10/23/15 04/01/20 [ Plus Tablet] Zolpidem [Ambien] 10 mg PO HS PRN 10/23/15 04/01/20 Chlorzoxazone [Parafon Forte DSC] 500 mg PO DAILY PRN 03/07/17 04/01/20 Hydroxychloroquine Sulfate 200 mg PO BID 03/07/17 04/01/20 [Plaquenil] Loratadine [Claritin] 10 mg PO DAILY 03/07/17 04/01/20 DULoxetine HCL [Cymbalta] 60 mg PO HS 04/01/20 04/01/20 Estradiol/Norethindrone Acet 1 tab PO DAILY 04/01/20 04/01/20 [Lopreeza 1 mg-0.5 mg Tablet] Hydrocodone/Acetaminophen [Mchenry 1 tab PO QID PRN 04/01/20 04/01/20 7.5-325] Previous Rx's Medication Instructions Recorded HYDROcodone/APAP 7.5-325MG [Mchenry 1 tab PO Q4H PRN 3 Days #18 tab 04/03/20 7.5-325] Pantoprazole Sodium [Protonix] 40 mg PO DAILY #30 tablet. 04/03/20 Azithromycin [Zithromax Z-pack (6 0 mg PO DIRECTED #6 tab 09/03/21 tabs)] CHLORPHEN-HYDROcod 8-10mg/5ml 5 ml PO Q12HR PRN 3 Days #30 ml 09/03/21 [Tussionex] Ipratropium-Albuterol Nebulize 3 ml INHALATION Q4H PRN #90 ml 09/03/21 [Duoneb 0.5 mg-3 mg/3 ml Soln] predniSONE 50 mg PO DAILY #5 tablet 09/03/21 Allergies Allergy/AdvReac Type Severity Reaction Status Date / Time codeine Allergy Chest Verified 09/02/21 23:39 Pain, dyspnea,hives Iodinated Contrast Media Allergy flushed,hot Verified 09/02/21 23:39 [Iodinated Contrast Media - ,nauseated IV Dye] Review of Systems ROS Statement: Those systems with pertinent positive or pertinent negative responses have been documented in the HPI. ROS Other: All systems not noted in ROS Statement are negative. Past Medical History Past Medical History: Fibromyalgia, Rheumatoid Arthritis (RA) Additional Past Medical History / Comment(s): hx kidney stones History of Any Multi-Drug Resistant Organisms: None Reported Past Surgical History: Ablation Additional Past Surgical History / Comment(s): uterine ablation, kidney stone Past Anesthesia/Blood Transfusion Reactions: No Reported Reaction Past Psychological History: No Psychological Hx Reported Smoking Status: Current every day smoker Past Alcohol Use History: None Reported Past Drug Use History: None Reported General Exam Limitations: physical limitation General appearance: alert, in no apparent distress, other (This is a well- developed, well-nourished adult female in no acute distress.) ENT exam: Present: normal exam, normal oropharynx, mucous membranes moist, TM's normal bilaterally Neck exam: Present: normal inspection. Absent: tenderness, meningismus, lymphadenopathy Respiratory exam: Present: normal lung sounds bilaterally, other (persistent cough noted during exam). Absent: respiratory distress, wheezes, rales, rhonchi, stridor Cardiovascular Exam: Present: regular rate, normal rhythm, normal heart sounds. Absent: systolic murmur, diastolic murmur, rubs, gallop, clicks GI/Abdominal exam: Present: soft, normal bowel sounds. Absent: distended, tenderness, guarding, rebound, rigid Neurological exam: Present: alert, oriented X3, CN II-XII intact Psychiatric exam: Present: normal affect, normal mood Skin exam: Present: warm, dry, intact, normal color. Absent: rash Course Vital Signs 09/02/21 23:34 Temperature 97.8 F Pulse Rate 117 H Respiratory 20 Rate Blood Pressure 153/91 O2 Sat by Pulse 97 Oximetry Medical Decision Making - Medical Decision Making 45-year-old female patient presented to the emergency department today for evaluation of painful cough and congestion. Physical examination did reveal clear equal lung sounds. She is afebrile. She did have normal oxygen saturation. Chest x-ray is negative. Tested negative for influenza, RSV, and COVID-19. I did discuss findings and results with her. We will treat for acute bronchitis with azithromycin, prednisone, Tussionex for cough. She will be discharged to follow-up with her primary care physician for recheck in 1-2 days. Return parameters were discussed in detail. She verbalizes understanding and agrees with this plan. My attending is Dr. Fernandez. - Lab Data Lab Results 09/03/21 Range/Units 00:12 Influenza Type A (PCR) Not Detected (Not Detectd) Influenza Type B (PCR) Not Detected (Not Detectd) RSV (PCR) Not Detected (Not Detectd) SARS-CoV-2 (PCR) Not Detected (Not Detectd) - Radiology Data Radiology results: report reviewed, image reviewed Two-view x-ray of the chest is obtained. Report was reviewed in its entirety. Impression by Dr. Vo shows slight increased interstitial markings. No pulmonary consolidation or heart failure. Disposition Clinical Impression: Acute bronchitis Disposition: HOME SELF-CARE Condition: Good Instructions (If sedation given, give patient instructions): Acute Bronchitis (ED) Additional Instructions: Take medication as directed. Follow-up with the primary care physician for recheck in 1-2 days. Return to the emergency department immediately for any new, worsening, or concerning symptoms. Prescriptions: Ipratropium-Albuterol Nebulize [Duoneb 0.5 mg-3 mg/3 ml Soln] 3 ml INHALATION Q4H PRN #90 ml PRN Reason: Wheezing/Shortness of breath predniSONE 50 mg PO DAILY #5 tablet CHLORPHEN-HYDROcod 8-10mg/5ml [Tussionex] 5 ml PO Q12HR PRN 3 Days #30 ml PRN Reason: Cough Azithromycin [Zithromax Z-pack (6 tabs)] 0 mg PO DIRECTED #6 tab Is patient prescribed a controlled substance at d/c from ED?: Yes When asked, does pt state using other controlled substances?: No If prescribed controlled substance>3 days was MAPS reviewed?: Prescribed <3 Days If opioid is for acute pain is fill amount 7 days or less?: Yes If Rx opioid, was Start Talking consent form obtained?: Yes Referrals: María Elena Dunham MD [Primary Care Provider] - 1-2 days Time of Disposition: 01:22
== END 2021-09-03 01:40 | disposition home or self-care (01) ==
LOC: EC 23:33
DX: J20.9 Acute bronchitis, unspecified (principal); M79.7 Fibromyalgia; F17.200 Nicotine dependence, unspecified, uncomplicated; Z20.822 Contact with and (suspected) exposure to COVID-19; Z88.5 Allergy status to narcotic agent; Z87.442 Personal history of urinary calculi
CPT/HCPCS: 99283; 96372; 87636; 71046; J1100

== ENCOUNTER → 2021-12-15 | Outpatient (CLI) | payer MEDICARE ==
[2021-12-15 12:51] VITALS: BP 137/70; PULSE 109; RESP 18
--- NOTE | 2021-12-15 13:41 | P.CON ---
Consult Note - . Consult date: 12/15/21 Assessment/Plan:: HISTORY OF PRESENT ILLNESS: 46 yr old female as a referral from Dr Padilla presents today with chronic and severe lower back pain secondary to spondylosis for evaluation. Pt states her LBP has been going on for 1 year, is constant, 7/10 in intensity, acy, burning, stabbing int eh lower aspects of the lumbar spine with radiation of pain towards the LEs BL. Pain is provoked with twisting and lifting. Pain is relieved with medications (Magna, Motrin 600mg, Flexeril), topicals, ice, physical therapy in 2019, chiropractic treatments weekly, massage therapy which made the pain worse, home exercise regimen and rest. Past Medical History: Fibromyalgia, Rheumatoid Arthritis (RA) Past Surgical History: Uterine Ablation, Nephrolithiasis Social History: Daily Tobacco User. No ETOH abuse. No illicit drug use. Family History: Non contributory. All: See list Meds: See list REVIEW OF ORGAN SYSTEMS: CONSTITUTIONAL: No fevers or chills. No recent weight loss. HEENT: No visual acuity loss, eye pain, difficulties with hearing. No nosebleeds. No difficulty swallowing. RESPIRATORY: Denies any troubles with breathing or dyspnea on exertion. CARDIOVASCULAR: Denies any chest pain, palpitations, or recent heart attacks. GASTROINTESTINAL: Denies fatty food intolerance. Has change in bowel habits and gas bloat. GENITOURINARY: Denies any blood in urine. Has increased urinary frequency. NEUROLOGICAL: + numbness and tingling along the distal extremities. No seizure disorders or headaches. MUSCULOSKELETAL: + back pain SKIN: No skin cancer. No rash. PSYCHIATRIC: Denies current depression or suicidal thought s. ENDOCRINE: Denies current thyroid disorders. Denies any blood sugar glucose intolerance. HEME/LYMPHATIC: Denies any lumps and bumps around the neck. History of deep venous thrombosis. ALLERGY/IMMUNOLOGY: No immunoglobulin therapy. No immune deficiencies. BREAST: Denies current breast lumps, pain or nipple dis charge. Physical Examinations : Constitutional : Cooperative , not in acute distress . HEENT: Neck supple. No Lymphadenopathy. Normal thyroid size . Eyes no ptosis , no icterus, no photophobia . Hearing intact. Normal oropharynx. No Thrush. Respiratory : Chest clear to auscultations bilaterally. No wheezing. No rhonchi. Cardiovascular : Regular rate and rhythm , S1 / S2. No S3 . No S4. Gastrointestinal : Abdomen soft. No tenderness. Bowel sounds x 4. No organomegaly . Genitourinary : Deferred. Neurologic : Cranial nerve II to XII intact. No focal neurological deficits. Psychiatric : alert & oriented x 3. Matching mood & appropriate affect. Judgment & insight intact. Lymphatic No Lymphadenopathy. Musculoskeletal : Cervical Spine Motor strength in the deltoid and biceps: Normal right side. Normal Left side Motor strength biceps and the wrist extensors: Normal right side . Normal left side Motor strength in the triceps muscle: Normal right side. Normal left side Deep tendon reflexes: Normal at the biceps. Normal at Brachioradialis. Normal at triceps Cervical facet loading test: positive bilaterally Spurling test: positive bilaterally Neck distraction test: positive bilaterally Shira sign: positive bilaterally Lumbar spine Motor strength lower extremities ,thigh and legs 5/5 Right side , 5/5 Left side Deep tendon reflexes : Normal Knee Jerk. Normal Ankle Jerk Vertebral body tenderness over L5 Lumbar facet Loading Test: positive Right / positive Left Range of motion of the lumbar spine Flexion 30 degrees, extension 10 degrees Straight Leg Raise test: Left/ Right positive at degree Baljit test: positive right / positive left. Severe tenderness over the Sacroiliac joint on the Right / Left sides Gaenslen test: positive bilaterally Seated flexion test: positive bilaterally. Imaging Xray of the Lumbar spine reviewed. Assessment/ Plan : Recommendation of MRI without contrast of the Lumbar spine. Pt may return to our office within 4-6 weeks for results and treatment plan. All questions answered. I have spent greater than 50 minutes on patient care today. Dr Zarate was available by phone for the evaluation of this patient. The time was used to review the medical records including relevant urine studies and Prescription history (MAPs), review of the available imaging, evaluation and examination of the patient, coordination of care with the medical staff and if applicable referring physicians, as well as creation of the medical record PQRS Measure Charge Sheet Mode of Arrival: Ambulatory - Pain Location Lower Back Non-Pharmacological Interventions: Chiropractic Treatment Pharmacological Interventions: PRN Medication, Topical Medication PQRS Narrative: Smoking Status Current every day smoker Blood Pressure 137/70 Pain Intensity [Lower Back] 7 Scale Used Numeric (1 - 10) Hx Alcohol Use (MH) No Home Medications: Ambulatory Orders DULoxetine HCL [Cymbalta] 30 mg PO HS 10/23/15 Levothyroxine Sodium [Synthroid] 50 mcg PO HS 10/23/15 Zolpidem [Ambien] 10 mg PO HS PRN 10/23/15 Chlorzoxazone [Parafon Forte DSC] 500 mg PO DAILY PRN 03/07/17 Hydroxychloroquine Sulfate [Plaquenil] 200 mg PO BID 03/07/17 Loratadine [Claritin] 10 mg PO DAILY 03/07/17 DULoxetine HCL [Cymbalta] 60 mg PO HS 04/01/20 Estradiol/Norethindrone Acet [Lopreeza 1 mg-0.5 mg Tablet] 1 tab PO DAILY 04/01/20 HYDROcodone/APAP 7.5-325MG [Magna 7.5-325] 1 tab PO Q4H PRN 3 Days #18 tab 04/03/20 Pantoprazole Sodium [Protonix] 40 mg PO DAILY #30 tablet. 04/03/20 predniSONE 50 mg PO DAILY #5 tablet 09/03/21
== END ==
LOC: PNWHC3 12:19
PROVIDERS: ATTEND Specialist
DX: M47.816 Spondylosis without myelopathy or radiculopathy, lumbar region (principal); F17.200 Nicotine dependence, unspecified, uncomplicated; M06.9 Rheumatoid arthritis, unspecified; Z88.5 Allergy status to narcotic agent; Z91.041 Radiographic dye allergy status
CPT/HCPCS: 99211

== ENCOUNTER → 2021-12-29 | Outpatient (CLI) | payer MEDICARE ==
--- NOTE | 2021-12-30 01:44 | MR ---
EXAMINATION TYPE: MR lumbar spine wo con DATE OF EXAM: 12/29/2021 COMPARISON: None HISTORY: LBP, BLE radiculopathy x 6 mos, evaluate for discitis. Multiplanar multiecho imaging of the lumbar spine without contrast. The lumbar vertebrae have normal alignment. Disc spaces are fairly normal. No compression fracture. The neural foramina appear widely patent. No evidence of focal bone destruction. There is slight narrowing of the right-sided L5-S1 tru ral foramen due to minimal posterior disc bulging and facet arthropathy. There is no lumbar paraspinal mass. Sacroiliac joints are intact IMPRESSION: There are some minimal right side L5-S1 neural foraminal narrowing. No lumbar significant disc hernia tion or spinal stenosis. No fracture.
== END | disposition home or self-care (01) ==
LOC: RADMRIMAIN 20:14
PROVIDERS: ATTEND Physician Assistant Medical
DX: M48.061 Spinal stenosis, lumbar region without neurogenic claudication (principal); M54.16 Radiculopathy, lumbar region
CPT/HCPCS: 72148

== ENCOUNTER → 2021-12-30 | Outpatient (CLI) | payer MEDICARE ==
[2021-12-30 13:57] VITALS: BP 119/85; PULSE 103; RESP 18; TEMP 98.7
--- NOTE | 2021-12-30 14:04 | P.PN ---
Subjective Progress Note Date: 12/30/21 Principal diagnosis: A 46 yr old female with a history of severe and chronic low back pain secondary to lumbar degenerative disc diseases and lumbar spondylosis with facet arthropathy presents today for MRI lumbar spine results. Pain level is 7 out of 10 in intensity, localized to the lower back, constant, tight, sharp sensation pain with radiation of sharp, burning pain to the lower extremities. Pain is provoked by standing for periods of 20 minutes or more. Pain is alleviated with medications, topicals, ice, heat, physical therapy integrated with massage years ago, weekly chiropractic treatments, daily home exercise regimen, repositioning and rest. Patient is currently on [place] & Motrin. Patient denies any side effects of the medication(s), denies excessive drowsiness or sleepiness, denies suicidal ideation and reports that the current pain medication is helping to control the pain and improve activities of daily living. Patient denies any motor or sensory deficits. Patient denies any fever or night sweats, denies any change in the bowel movements or urination. Physical Examination: -Constitutional: Cooperative. Not in acute distress . -HEENT: Neck is supple. No lymphadenopathy. No thyromegaly. Normal thyroid size. Eyes: No ptosis , no icterus, no photophobia. ENT: No auditory deficits. Normal oropharynx. No Thrush. - Respiratory: Chest clear to auscultations bilaterally. No wheezing. No rhonchi. - Cardiovascular: Regular rate and rhythm. S1 / S2 , no S3 , no S4. - Gastrointestinal: Abdomen soft no tenderness. Bowel sounds positive in all four quadrants. No organomegaly. - Genitourinary: Deferred. - Neurologic: Cranial nerve II to XII intact. No focal neurological deficits. - Psychatric: Alert & oriented x 3. Matching mood & appropriate affect. Judgment and insight intact. - Lymphatic: No Lymphadenopathy. - Musculoskeletal: Cervical spine: Muscle bulk/ tone/ strength in the bilateral upper extremities normal. Facet loading test cervical area positive. Lumbar spine: Motor bulk/ tone/ strength lower extremities , thigh and legs : 5/5 Deep tendon reflexes : Normal Knee Jerk. Normal Ankle Jerk . Vertebral body tenderness to palpation over Lumbar Facet Loading Test positive over BL L5-S1 Straight Leg Raise: positive at 30 degrees right side/ left side Gaenslen's Test positive Sacral spine : Severe tenderness over the Sacroiliac joint: right side / left side Range of motion: Flexion of the lumbar spine <60 degrees Range of motion: Extension of the lumbar spine <20 degrees Gaenslen's Test positive Baljit test: positive right side / left side Imaging: MRI without contrast of the lumbar spine form 12/29/21 reviewed Assessment and plan: Chronic low back pain secondary to lumbar degenerative disc disease , lumbar spondylosis with facet arthropathy without myelopathy Recommendation of BL facet block of the medial branches L5-S1. May need a series of injections, up until RFA, for optimal pain relief. Risks, benefits of procedure discussed and pt verbalized understanding. Denies anticoagulant use or medical history of diabetes. All patient questions answered MAPS reviewed and it was appropriate. Prescription refill for I have spent 31 minutes on patient care today. Dr Zarate was available by phone for the evaluation of this patient. The time was used to review the medical records including relevant urine studies and Prescription history (MAPs), review of the available imaging, evaluation and examination of the patient, coordination of care with the medical staff and if applicable referring physicians, as well as creation of the medical record Objective - Vital Signs Vital signs: Vital Signs Temp 98.7 F 12/30/21 13:47 Pulse 103 H 12/30/21 13:47 Resp 18 12/30/21 13:47 BP 119/85 12/30/21 13:47 Pulse Ox 98 12/30/21 13:47 Intake & Output 12/29/21 12/30/21 12/30/21 18:59 06:59 18:59 Weight 86.183 kg PQRS Measure Charge Sheet Mode of Arrival: Ambulatory - Pain Location Bilateral Lower Back Non-Pharmacological Interventions: Chiropractic Treatment, Elevation, Heat, Home Exercise, Ice, Inactivity, Physical Therapy, Stretching Pharmacological Interventions: PRN Medication, Scheduled Medication, Topical Medication PQRS Narrative: Smoking Status Current every day smoker Blood Pressure 119/85 Pain Intensity [Bilateral 7 Lower Back] Scale Used Numeric (1 - 10) Hx Alcohol Use (MH) No Home Medications: Ambulatory Orders DULoxetine HCL [Cymbalta] 30 mg PO HS 10/23/15 Levothyroxine Sodium [Synthroid] 50 mcg PO HS 10/23/15 Zolpidem [Ambien] 10 mg PO HS PRN 10/23/15 Chlorzoxazone [Parafon Forte DSC] 500 mg PO DAILY PRN 03/07/17 Hydroxychloroquine Sulfate [Plaquenil] 200 mg PO BID 03/07/17 Loratadine [Claritin] 10 mg PO DAILY 03/07/17 DULoxetine HCL [Cymbalta] 60 mg PO HS 04/01/20 Estradiol/Norethindrone Acet [Lopreeza 1 mg-0.5 mg Tablet] 1 tab PO DAILY 04/01/20 HYDROcodone/APAP 7.5-325MG [[place] 7.5-325] 1 tab PO Q4H PRN 3 Days #18 tab 04/03/20 Pantoprazole Sodium [Protonix] 40 mg PO DAILY #30 tablet. 04/03/20 predniSONE 50 mg PO DAILY #5 tablet 09/03/21
== END ==
LOC: PNWHC3 13:10
PROVIDERS: ATTEND Specialist
DX: M47.816 Spondylosis without myelopathy or radiculopathy, lumbar region (principal); M51.36 Other intervertebral disc degeneration, lumbar region; G89.29 Other chronic pain; F17.200 Nicotine dependence, unspecified, uncomplicated; Z88.5 Allergy status to narcotic agent; Z91.041 Radiographic dye allergy status
CPT/HCPCS: 99211

== ENCOUNTER 2022-02-11 12:13 | Day surgery (SDC) | payer MEDICARE ==
[2022-02-10 13:13] VITALS: BMI 33.8
[2022-02-11] MEDS ORDERED: LACTATED RINGERS 1,000 ML IV ONE (12:57)
[2022-02-11] MEDS ORDERED: LACTATED RINGERS 1,000 ML IV SCH (12:58)
[2022-02-11] MEDS ORDERED: LIDOCAINE 1% (10MG/ML) FOR IV START INTRADERMA PRN (12:58)
[2022-02-11 13:06] VITALS: TEMP 97.2
[2022-02-11 13:17] LABS: Glucose,Whole Blood 118 mg/dL (70-110)
[2022-02-11] MEDS ORDERED: ROPIVACAINE 5MG/ML 20ML VIAL ONE (13:21)
[2022-02-11] MEDS ORDERED: fentaNYL (PF) 50 MCG/ML 2 ML AMP ONE (13:21)
[2022-02-11] MEDS ORDERED: methylPREDNISolone ACETATE 40 MG/ML 1 ML VIAL ONE (13:21)
[2022-02-11] MEDS ORDERED: MIDAZOLAM 2 MG/2 ML VIAL ONE (13:21)
--- NOTE | 2022-02-11 13:36 | P.PCN ---
Date of Procedure: 02/11/22 Procedure(s) Performed: PREOPERATIVE DIAGNOSIS : 1- Lumbar spondylosis with Facet Arthropathy without myelopathy . 2- Lumber degenerative disc disease POSTOPERATIVE DIAGNOSIS: 1- Lumbar spondylosis with Facet Arthropathy without myelopathy . 2- Lumber degenerative disc disease PROCEDURE: Diagnostic bilateral L4 , and L5 medial branch block under fluoroscopy guidance(fluoroscopy images available in the radiology Department ) ( To target the facet joint between bilateral L5-S1 )# 1 st ANESTHESIA:,Monitered anesthesia care as per anesthesia department EBL: Minimal COMPLICATION: None PROCEDURE INDICATION: Chronic low back pain secondary to Facet arthropathy unresponsive to conservative treatment. PROCEDURE DESCRIPTION: the patient was seen and identified in the preop holding area , risks and benefits and possible complications of the procedure and alternative were discussed with the patient, and the patient agreed to proceed with the procedure and signed the consent and vital signs monitored during the procedure and fluoroscopy was used to maximize the benefit and accuracy of the needle placement, and sedation was given to decrease patient anxiety, patient was taken to the procedure room and placed in prone position vital signs monitored in the back prepped with chlorhexidine X3 then under strict sterile technique using a right oblique fluoroscopy ,the junction of the transverse process and the superior articulating process of the right L4 , and L5 vertebra which corresponding to the fluoroscopy image of the eye of the Ambrose dog on the block side for the medial branches and subsequently , after local infiltration of skin and subcu tissuies with Ropivacaine 0.5 % , one mL at each level ,then 22-gauge Quincke-type needles , 2 needle was used , each one of them placed at the junction of the base of the transverse process and the superior articular process at the appropriate level, and the needle was advanced until the periosteum contacted, needle placement confirmed with AP oblique and lateral view and after appropriate needle placement confirmed, and after negative aspiration for heme and CSF and there was no paresthesia 1 mL of Ropiv acaine 0.5% mixed with 20 mg Depo-Medrol , then half mL injected at each level after negative aspiration the needle subsequently removed and the same procedure repeated for the left side at left side at L4 and L5 levels. At the end of the procedure and the needles removed and a bandage applied after the skin was cleaned the cleaning solution patient taken to recovery room in stable condition and monitors in the recovery room for 20-30 minutes and discharged home in stable condition after discharge criteria met and patient will follow up with the pain clinic in 2-4 weeks
[2022-02-11] MEDS ORDERED: IV FLUID CONTINUATION 1,000 ML IV ONE (13:40)
[2022-02-11 14:15] VITALS: BP 100/54; PULSE 94; RESP 20
--- NOTE | 2022-02-11 15:19 | FL ---
Fluoroscopy HISTORY: Pain 8 seconds fluoroscopy time supplied to the referring clinician. 4 intraoperative C-arm images docume nt the procedure. See dictated report from anesthesia.
== END 2022-02-11 14:30 | disposition home or self-care (01) ==
LOC: ORPAIN 12:13
PROVIDERS: ATTEND Specialist
DX: M47.816 Spondylosis without myelopathy or radiculopathy, lumbar region (principal); M51.36 Other intervertebral disc degeneration, lumbar region; Z91.041 Radiographic dye allergy status; E78.5 Hyperlipidemia, unspecified; E03.9 Hypothyroidism, unspecified; Z87.442 Personal history of urinary calculi; M79.7 Fibromyalgia; Z88.8 Allergy status to other drugs, medicaments and biological substances; F17.200 Nicotine dependence, unspecified, uncomplicated; Z88.5 Allergy status to narcotic agent; Z79.899 Other long term (current) drug therapy
CPT/HCPCS: 81025; 64493; J2250; J1030; J3010; J2795

== ENCOUNTER → 2022-03-02 | Outpatient (CLI) | payer MEDICARE ==
[2022-03-02 12:47] VITALS: BP 137/84; PULSE 100; RESP 18
--- NOTE | 2022-03-02 13:06 | P.PAINPG ---
Objective - Vital Signs Vital signs: Vital Signs Temp Pulse 100 03/02/22 12:40 Resp 18 03/02/22 12:40 BP 137/84 03/02/22 12:40 Pulse Ox 97 03/02/22 12:40 FiO2 PQRS Measure Charge Sheet Mode of Arrival: Ambulatory Comment: A 46 yr old female with a history of severe and chronic low back pain secondary to lumbar degenerative disc diseases and lumbar spondylosis with facet arthropathy presents today for evaluation s/p MBB BL L5-S1 #1. She states she experienced 80% pain relief x 1 week s/p procedure. Pain level is currently at 7/10 in intensity but escalates as high as 9/10 when standing/ walking for 20 min or more. Pain is dull/ achy/ sharp in the lower aspects of the lumbar spine/ tailbone region with shooting/ pressure towards the feet. Pain is provoked by standing/ walking for periods of 20 min or more. Pain is alleviated with PT in 2019, massage therapy monthly, chiropractic treatments weekly, medications (Ibuprofen, [place] by Dr Cifuentes), heat, ice, topicals, [place] patches, repositioning and rest. Interventional pain procedures completed include FB of the MB BL L5-S1 #1 Patient is currently on Ibuprofen Patient denies any side effects of the medication(s), denies excessive drowsine ss or sleepiness, denies suicidal ideation and reports that the current pain medication is helping to control the pain and improve activities of daily living. Patient denies any motor or sensory deficits. Patient denies any fever or night sweats, denies any change in the bowel movements or urination. Physical Examination: -Constitutional: Cooperative. Not in acute distress . - Neurologic: Cranial nerve II to XII intact. No focal neurological deficits. - Psychatric: Alert & oriented x 3. Matching mood & appropriate affect. Judgment and insight intact. - Musculoskeletal: Cervical spine: Muscle bulk/ tone/ strength in the bilateral upper extremities normal Vertebral body tenderness to palpation over Spurling test positive Distraction test positive Facet loading test positive Thoracic spine Muscle bulk / tone/ strength in the bilateral paraspinal muscles normal Vertebral body tender to palpation over Facet loading test positive Lumbar spine: Motor bulk/ tone/ strength lower extremities , thigh and legs : 5/5 Deep tendon reflexes : Normal Knee Jerk. Normal Ankle Jerk . Vertebral body tenderness to palpation over Lumbar Facet Loading Test positive over BL L5-S1 with accompanying paraspinal TTP Straight Leg Raise: positive at 30 degrees right side/ left side Gaenslen's Test positive Sacral spine : Severe tenderness over the Sacroiliac joint: right side / left side Range of motion: Flexion of the lumbar spine <60 degrees Range of motion: Extension of the lumbar spine <20 degrees Gaenslen's Test positive Iván's Test positive Baljit test: positive right side / left side Thigh Thrust Test Sacral Thrust Test Assessment and plan: Chronic low back pain secondary to lumbar degenerative disc disease , lumbar spondylosis with facet arthropathy without myelopathy Recommendation of BL MBB of L5-S1 #2. May need a series of injections, up until RFA for optimal pain relief. Risks, benefits of procedure discussed and pt verbalized understanding. Denies anticoagulant use or medical history of diabetes. All patient questions answered MAPS reviewed and it was appropriate. I have spent less than 30 minutes on patient care today. Dr Zarate was available by phone for the evaluation of this patient. The time was used to review the medical records including relevant urine studies and Prescription history (MAPs), review of the available imaging, evaluation and examination of the patient, coordination of care with the medical staff and if applicable referring physicians, as well as creation of the medical record - Pain Location Lower Back Non-Pharmacological Interventions: Chiropractic Treatment, Heat, Home Exercise, Ice, Inactivity, Massage, Physical Therapy, Position/Reposition, Sitting, Stretching Pharmacological Interventions: Block, PRN Medication, Topical Medication PQRS Narrative: Smoking Status Current every day smoker Blood Pressure 137/84 Pain Intensity [Lower Back] 7 Scale Used Numeric (1 - 10) Hx Alcohol Use (MH) No Home Medications: Ambulatory Orders DULoxetine HCL [Cymbalta] 30 mg PO HS 10/23/15 Levothyroxine Sodium [Synthroid] 50 mcg PO HS 10/23/15 Zolpidem [Ambien] 10 mg PO HS PRN 10/23/15 Chlorzoxazone [Parafon Forte DSC] 500 mg PO DAILY PRN 03/07/17 Hydroxychloroquine Sulfate [Plaquenil] 200 mg PO BID 03/07/17 Loratadine [Claritin] 10 mg PO DAILY 03/07/17 DULoxetine HCL [Cymbalta] 60 mg PO HS 04/01/20 Estradiol/Norethindrone Acet [Lopreeza 1 mg-0.5 mg Tablet] 1 tab PO DAILY 04/01/20 HYDROcodone/APAP 7.5-325MG [[place] 7.5-325] 1 tab PO Q4H PRN 3 Days #18 tab 04/03/20 Pantoprazole Sodium [Protonix] 40 mg PO DAILY #30 tablet. 04/03/20 predniSONE 50 mg PO DAILY #5 tablet 09/03/21 Controlled Substance Measures - Controlled Substance Measures Is patient prescribed a controlled substance at discharge?: No
== END ==
LOC: PNWHC3 12:28
PROVIDERS: ATTEND Specialist
DX: M47.816 Spondylosis without myelopathy or radiculopathy, lumbar region (principal); M51.36 Other intervertebral disc degeneration, lumbar region; G89.29 Other chronic pain; F17.200 Nicotine dependence, unspecified, uncomplicated; Z91.041 Radiographic dye allergy status; Z88.5 Allergy status to narcotic agent
CPT/HCPCS: 99211

== ENCOUNTER 2022-04-01 12:19 | Day surgery (SDC) | payer MEDICARE ==
[2022-03-30 12:28] VITALS: BMI 35.6
[2022-04-01 12:37] VITALS: RESP 16; TEMP 97.4
[2022-04-01] MEDS ORDERED: IV FLUID CONTINUATION 1,000 ML IV ONE ×3 (12:42→13:59)
[2022-04-01] MEDS ORDERED: LIDOCAINE 1% (10MG/ML) FOR IV START INTRADERMA PRN (12:42)
[2022-04-01] MEDS ORDERED: LACTATED RINGERS 1,000 ML IV SCH (12:42)
[2022-04-01] MEDS ORDERED: methylPREDNISolone ACETATE 40 MG/ML 1 ML VIAL ONE (13:27)
[2022-04-01] MEDS ORDERED: fentaNYL (PF) 50 MCG/ML 2 ML AMP ONE (13:27)
[2022-04-01] MEDS ORDERED: ROPIVACAINE 5MG/ML 20ML VIAL ONE (13:27)
[2022-04-01] MEDS ORDERED: MIDAZOLAM 2 MG/2 ML VIAL ONE (13:27)
--- NOTE | 2022-04-01 13:41 | P.PCN ---
Date of Procedure: 04/01/22 Procedure(s) Performed: PREOPERATIVE DIAGNOSIS : 1- Lumbar spondylosis with Facet Arthropathy without myelopathy . 2- Lumber degenerative disc disease POSTOPERATIVE DIAGNOSIS: 1- Lumbar spondylosis with Facet Arthropathy without myelopathy . 2- Lumber degenerative disc disease PROCEDURE: Diagnostic bilateral L4 , and L5 medial branch block under fluoroscopy guidance(fluoroscopy images available in the radiology Department ) ( To target the facet joint between bilateral L5-S1 )#2nd ANESTHESIA:,Monitered anesthesia care as per anesthesia department EBL: Minimal COMPLICATION: None PROCEDURE INDICATION: Chronic low back pain secondary to Facet arthropathy unresponsive to conservative treatment. PROCEDURE DESCRIPTION: the patient was seen and identified in the preop holding area , risks and benefits and possible complications of the procedure and alternative were discussed with the patient, and the patient agreed to proceed with the procedure and signed the consent and vital signs monitored during the procedure and fluoroscopy was used to maximize the benefit and accuracy of the needle placement, and sedation was given to decrease patient anxiety, patient was taken to the procedure room and placed in prone position vital signs monitored in the back prepped with chlorhexidine X3 then under strict sterile technique using a right oblique fluoroscopy ,the junction of the transverse process and the superior articulating process of the right L4 , and L5 vertebra which corresponding to the fluoroscopy image of the eye of the Ambrose dog on the block side for the medial branches and subsequently , after local infiltration of skin and subcu tissuies with Ropivacaine 0.5 % , one mL at each level ,then 22-gauge Quincke-type needles , 2 needle was used , each one of them placed at the junction of the base of the transverse process and the superior articular process at the appropriate level, and the needle was advanced until the periosteum contacted, needle placement confirmed with AP oblique and lateral view and after appropriate needle placement confirmed, and after negative aspiration for heme and CSF and there was no paresthesia 1 mL of Ropivacaine 0.5% mixed with 20 mg Depo-Medrol , then half mL injected at each level after negative aspiration the needle subsequently removed and the same procedure repeated for the left side at left side at L4 and L5 levels. At the end of the procedure and the needles removed and a bandage applied after the skin was cleaned the cleaning solution patient taken to recovery room in stable condition and monitors in the recovery room for 20-30 minutes and discharged home in stable condition after discharge criteria met and patient will follow up with the pain clinic in 2-4 weeks
--- NOTE | 2022-04-01 13:56 | FL ---
Intraoperative/procedural fluoroscopic services were provided. Total fluoroscopy time is 7 seconds wi th a total of 4 submitted images to PACS. Please see the operative/procedural note for further detail s.
[2022-04-01 14:01] VITALS: BP 128/87; PULSE 98
== END 2022-04-01 14:08 | disposition home or self-care (01) ==
LOC: ORPAIN 12:19
PROVIDERS: ATTEND Specialist
DX: G89.29 Other chronic pain (principal); M47.816 Spondylosis without myelopathy or radiculopathy, lumbar region; F17.200 Nicotine dependence, unspecified, uncomplicated; M06.9 Rheumatoid arthritis, unspecified; K21.9 Gastro-esophageal reflux disease without esophagitis; Z79.3 Long term (current) use of hormonal contraceptives; Z79.890 Hormone replacement therapy; Z79.891 Long term (current) use of opiate analgesic; Z79.52 Long term (current) use of systemic steroids; Z79.899 Other long term (current) drug therapy; Z88.5 Allergy status to narcotic agent; Z91.048 Other nonmedicinal substance allergy status
CPT/HCPCS: 64493; 64494; J2250; J1030; J3010; J2795

== ENCOUNTER → 2022-04-13 | Outpatient (CLI) | payer MEDICARE ==
[2022-04-13 13:04] VITALS: BP 114/82; PULSE 105; RESP 18; TEMP 98.4
--- NOTE | 2022-04-13 14:46 | P.PAINPG ---
Objective - Vital Signs Vital signs: Intake & Output 04/12/22 04/13/22 04/13/22 18:59 06:59 18:59 Weight 88.451 kg PQRS Measure Charge Sheet Comment: A 46 yr old female w mother at side with a history of severe and chronic low back pain secondary to lumbar degenerative disc diseases and lumbar spondylosis with facet arthropathy presents today for evaluation s/p BL facet block of the medial branches L3-L5 #2. Pt states she received 80% pain relief x 2 days s/p procedure. Pain level is currently at 7/10 in intensity, constant, tight, achy, pulsing pain w shooting towards the BLEs. Pain is provoked by walking/ standing for periods of 20 minutes or more. Pain is alleviated with PT 6 yrs ago, massage therapy bi monthly, chiropractic treatments weekly x 10 yrs, heat, ice, medications ([place], Ibuprofen), topicals, laying supine, repositioning and rest. Interventional pain procedures completed include BL facet block of the medial branches L3-L5 x2 Patient is currently on [place] prn, Ibuprofen prn. Patient denies any side effects of the medication(s), denies excessive drowsiness or sleepiness, denies suicidal ideation and reports that the current pain medication is helping to control the pain and improve activities of daily living. Patient denies any motor or sensory deficits. Patient denies any fever or night sweats, denies any change in the bowel movements or urination. Physical Examination: -Constitutional: Cooperative. Not in acute distress . - Neurologic: Cranial nerve II to XII intact. No focal neurological deficits. - Psychatric: Alert & oriented x 3. Matching mood & appropriate affect. Judgment and insight intact. - Musculoskeletal: Cervical spine: Muscle bulk/ tone/ strength in the bilateral upper extremities normal Vertebral body tenderness to palpation over Spurling test positive Distraction test positive Facet loading test positive Thoracic spine Muscle bulk / tone/ strength in the bilateral paraspinal muscles normal Vertebral body tender to palpation over Facet loading test positive Lumbar spine: Motor bulk/ tone/ strength lower extremities , thigh and legs : 5/5 Deep tendon reflexes : Normal Knee Jerk. Normal Ankle Jerk . Vertebral body tenderness to palpation over Lumbar Facet Loading Test positive over BL L4-L5, L5-S1 w accompanying paraspinal TTP Straight Leg Raise: positive at 30 degrees right side/ left side Gaenslen's Test positive Sacral spine : Severe tenderness over the Sacroiliac joint: right side / left side Range of motion: Flexion of the lumbar spine <60 degrees Range of motion: Extension of the lumbar spine <20 degrees Gaenslen's Test positive Iván's Test positive Baljit test: positive right side / left side Thigh Thrust Test Sacral Thrust Test Assessment and plan: Chronic low back pain secondary to lumbar degenerative disc disease , lumbar spondylosis with facet arthropathy without myelopathy Recommendation of BL RFA L4-L5, L5-S1. Pt exhibited sufficient and optimal short term pain relief w the prior procedures. Risks, benefits of procedure discussed and pt verbalized understanding. Denies anticoagulant use or medical history of diabetes. All patient questions answered I have spent less than 30 minutes on patient care today. Dr Zarate was available by phone for the evaluation of this patient. The time was used to review the medical records including relevant urine studies and Prescription history (MAPs), review of the available imaging, evaluation and examination of the patient, coordination of care with the medical staff and if applicable referring physicians, as well as creation of the medical record PQRS Narrative: Smoking Status Current every day smoker Hx Alcohol Use (MH) No Home Medications: Ambulatory Orders DULoxetine HCL [Cymbalta] 30 mg PO HS 10/23/15 Levothyroxine Sodium [Synthroid] 50 mcg PO HS 10/23/15 Zolpidem [Ambien] 10 mg PO HS PRN 10/23/15 Chlorzoxazone [Parafon Forte DSC] 500 mg PO DAILY PRN 03/07/17 Hydroxychloroquine Sulfate [Plaquenil] 200 mg PO BID 03/07/17 Loratadine [Claritin] 10 mg PO DAILY 03/07/17 DULoxetine HCL [Cymbalta] 60 mg PO HS 04/01/20 Estradiol/Norethindrone Acet [Lopreeza 1 mg-0.5 mg Tablet] 1 tab PO DAILY 04/01/20 HYDROcodone/APAP 7.5-325MG [[place] 7.5-325] 1 tab PO Q4H PRN 3 Days #18 tab 04/03/20 Pantoprazole Sodium [Protonix] 40 mg PO DAILY #30 tablet. 04/03/20 predniSONE 50 mg PO DAILY #5 tablet 09/03/21 Controlled Substance Measures - Controlled Substance Measures Is patient prescribed a controlled substance at discharge?: No
== END ==
LOC: PNWHC3 12:26
PROVIDERS: ATTEND Specialist
DX: M51.36 Other intervertebral disc degeneration, lumbar region (principal); M47.816 Spondylosis without myelopathy or radiculopathy, lumbar region; G89.29 Other chronic pain; Z88.5 Allergy status to narcotic agent; Z91.041 Radiographic dye allergy status; F17.200 Nicotine dependence, unspecified, uncomplicated
CPT/HCPCS: 99211

== ENCOUNTER 2022-05-20 10:51 | Day surgery (SDC) | payer MEDICARE ==
[2022-05-19 12:47] VITALS: BMI 35.6
[2022-05-20 11:51] VITALS: TEMP 98.5
[2022-05-20] MEDS ORDERED: LACTATED RINGERS 1,000 ML IV ONE ×2 (11:59)
[2022-05-20] MEDS ORDERED: methylPREDNISolone ACETATE 40 MG/ML 1 ML VIAL ONE (12:02)
[2022-05-20] MEDS ORDERED: MIDAZOLAM 2 MG/2 ML VIAL ONE (12:02)
[2022-05-20] MEDS ORDERED: fentaNYL (PF) 50 MCG/ML 2 ML AMP ONE (12:02)
[2022-05-20] MEDS ORDERED: ROPIVACAINE 5 MG/ML 20 ML AMPULE ONE (12:02)
--- NOTE | 2022-05-20 12:27 | P.PCN ---
Date of Procedure: 05/20/22 Procedure(s) Performed: PREOPERATIVE DIAGNOSIS: 1-Lumbar Spondylosis with Facet Arthropathy without myelopathy. 2- Lumber degenerative disc disease. POSTOPERATIVE DIAGNOSIS: 1- Lumbar Spondylosis with Facet Arthropathy without myelopathy. 2- Lumber degenerative disc disease. PROCEDURES : Bilateral Radiofrequency thermocoagulation, L4 , and L5 medial branch, with fluoroscopic guidance (fluoroscopy images available in the radiology department) ( to denervate the facet joint at L5-S1 levels ). ANESTHESIA: Monitored anesthesia care as per anesthesia department. EBL: Minimal PROCEDURE INDICATION: The patient with low back pain secondary to lumbar facet arthropathy who had more than 50% relief of her pain with previous diagnostic lumbar medial branch block with bupivacaine. PROCEDURE DESCRIPTION / TECHNIQUE: The patient was seen and identified in the preoperative area. Risks, benefits, complications, including but not limited to risk of infection ,bleeding , allergic reactions to the medications and no complete pain releife , and alternatives were discussed with the patient, the patient agreed to proceed with the procedure and signed the consent. IV was started. Vital signs remained stable throughout the procedure. Patient was taken to the OR and time out was completed. The patient was placed in the prone position on the procedure table. The lumber area was prepped and draped in the usual sterile fashion. . Vital signs were closely monitored during the procedure .IV sedation was used during the procedure to decrease patients anxiety. Using AP and then oblique fluoroscopy, the ``eye of the Ambrose dog corresponding to the connection between the superior and transverse articular processes of right L4, and L5 were identified, marked, and localized with 1% lidocaine. Subsequently, a 18 -jc radiofrequency cannula with a 10-mm active tip was advanced guided by fluoroscopy to each of the``eyes of the Ambrose dog at right L4, and L5. Each site then underwent sensory testing at 50 Hz and 0 to 1 volt and motor testing at 2.5 Hz and 0 to 3 volt with local stimulation, but no radicular symptoms down the legs. Thereafter each sites underwent radiofrequency thermocoagulation at 80 degrees celsius for 90 seconds after injecting 0.5 ml of PF Ropivacaine 1ml, then after the thermocoagulation done , 1 ml of the block solution containing Depo-Medrol 20 mg and 2 ml of Ropivacaine 0.5% was injected at the right L4 , and L5 , levels after negative aspiration of CSF and blood and with no paresthesias. Cannulas were retracted while injecting lidocaine 1% until the needle is out. The same procedure was repeated at the level of Left L4, and L5 levels. At the end of the procedure, the skin was cleansed and bandages were applied. COMPLICATIONS: No acute complications. DISPOSITION / PLANS: The patient was placed in a supine position and transferred to the recovery area in a stable condition for observation and was discharged from the recovery room after meeting discharge criteria. Home discharge instructions given to the patient by the staff. The patient was reexamined prior to discharge. The patient will schedule a follow up in the clinic in 2-4 weeks.
[2022-05-20] MEDS ORDERED: IV FLUID CONTINUATION 600 ML IV ONE (12:30)
[2022-05-20] MEDS ORDERED: LACTATED RINGERS 600 ML IV ONE (12:30)
[2022-05-20 12:33] VITALS: RESP 16
--- NOTE | 2022-05-20 12:33 | FL ---
Intraoperative/procedural fluoroscopic services were provided. Total fluoroscopy time is 12 seconds w ith a total of 6 submitted images to PACS. Please see the operative note for further details.
[2022-05-20 12:47] VITALS: BP 116/81; PULSE 93
== END 2022-05-20 13:00 | disposition home or self-care (01) ==
LOC: ORPAIN 10:51
PROVIDERS: ATTEND Specialist
DX: M51.36 Other intervertebral disc degeneration, lumbar region (principal); M47.816 Spondylosis without myelopathy or radiculopathy, lumbar region; Z91.041 Radiographic dye allergy status; Z88.5 Allergy status to narcotic agent; F17.200 Nicotine dependence, unspecified, uncomplicated; E07.9 Disorder of thyroid, unspecified; K21.9 Gastro-esophageal reflux disease without esophagitis; M79.7 Fibromyalgia; Z79.891 Long term (current) use of opiate analgesic; Z79.890 Hormone replacement therapy; Z79.899 Other long term (current) drug therapy
CPT/HCPCS: 81025; 64635; J2250; J1030; J3010; J2795

== ENCOUNTER → 2022-06-06 | Outpatient (CLI) | payer MEDICARE ==
[2022-06-06 12:52] VITALS: BP 150/84; PULSE 114; RESP 18
--- NOTE | 2022-06-06 13:09 | XR ---
EXAMINATION TYPE: XR cervical spine limited DATE OF EXAM: 06/06/2022 COMPARISON: None HISTORY: Cervicalgia TECHNIQUE: 3 view cervical spine FINDINGS: Prevertebral space is normal. Small anterior vertebral body spurs are present at C4-C7. The re is slight kyphosis centered at C4-5. Some disc space narrowing is present at C6-7. Posterior spina l lamellar line is intact. IMPRESSION: 1. Mild kyphosis and some minimal anterior vertebral body spurring. 2. Mild degenerative disc changes C6-7
--- NOTE | 2022-06-06 14:48 | P.PAINPG ---
PQRS Measure Charge Sheet Comment: A 46 yr old female with a history of severe and chronic neck and low back pain secondary to lumbar degenerative disc diseases and lumbar spondylosis with facet arthropathy without myelopathy presents today for evaluation s/p BL RFA L5-S1. Pt states she experienced 75% pain relief s/p procedure. Pain level is currently at 5/10 in intensity, constant, localized in the lower lumbar spine, sore in character w shooting towards . Pain is provoked by overactivity. Pain is alleviated with PT in the past, chiropractic treatments weekly, home stretching regimen, hemp topical, ice, heat, repositioning and rest. Pt also complains of neck pain, 9/10 in intensity, constant, sore in character w shooting stabbing sensation towards BUEs w RUE numbness. Pain is provoked by overactivity. Pain is alleviated PT in 2019, massage therapy as needed, chiropractic treatments weekly, medications, hemp topical, home exercise regimen, repostioning and rest. Interventional pain procedures completed include BL RFA L4-L5 Patient is currently on [place] from Dr Cifuentes Patient denies any side effects of the medication(s), denies excessive drowsiness or sleepiness, denies suicidal ideation and reports that the current pain medication is helping to control the pain and improve activities of daily living. Patient denies any motor or sensory deficits. Patient denies any fever or night sweats, denies any change in the bowel movements or urination. Physical Examination: -Constitutional: Cooperative. Not in acute distress . - Neurologic: Cranial nerve II to XII intact. No focal neurological deficits. - Psychatric: Alert & oriented x 3. Matching mood & appropriate affect. Judgment and insight intact. - Musculoskeletal: Cervical spine: Muscle bulk/ tone/ strength in the bilateral upper extremities normal Vertebral body tenderness to palpation over C6 Spurling test positive Distraction test positive Facet loading test positive Thoracic spine Muscle bulk / tone/ strength in the bilateral paraspinal muscles normal Vertebral body tender to palpation over Facet loading test positive Lumbar spine: Motor bulk/ tone/ strength lower extremities , thigh and legs : 5/5 Deep tendon reflexes : Normal Knee Jerk. Normal Ankle Jerk . Vertebral body tenderness to palpation over Lumbar Facet Loading Test positive Straight Leg Raise: positive at 30 degrees right side/ left side Gaenslen's Test positive Sacral spine : Severe tenderness over the Sacroiliac joint: right side / left side Range of motion: Flexion of the lumbar spine <60 degrees Range of motion: Extension of the lumbar spine <20 degrees Gaenslen's Test positive Iván's Test positive Baljit test: positive right side / left side Thigh Thrust Test Sacral Thrust Test Assessment and plan: Chronic neck and low back pain secondary to cervical & lumbar degenerative disc disease , spondylosis with facet arthropathy without myelopathy Recommendation of cervical x ray re : M50.30. May need an MRI without contrast if needed. All patient questions answered I have spent less than 30 minutes on patient care today. Dr Zaraet was available by phone for the evaluation of this patient. The time was used to review the medical records including relevant urine studies and Prescription history (MAPs), review of the available imaging, evaluation and examination of the patient, coordination of care with the medical staff and if applicable referring physicians, as well as creation of the medical record PQRS Narrative: Smoking Status Current every day smoker Hx Alcohol Use (MH) No Home Medications: Ambulatory Orders Levothyroxine Sodium [Synthroid] 50 mcg PO HS 10/23/15 Zolpidem [Ambien] 10 mg PO HS PRN 10/23/15 Chlorzoxazone [Parafon Forte DSC] 500 mg PO DAILY PRN 03/07/17 Hydroxychloroquine Sulfate [Plaquenil] 200 mg PO BID 03/07/17 Loratadine [Claritin] 10 mg PO DAILY 03/07/17 DULoxetine HCL [Cymbalta] 90 mg PO HS 04/01/20 Estradiol/Norethindrone Acet [Lopreeza 1 mg-0.5 mg Tablet] 1 tab PO DAILY 04/01/20 HYDROcodone/APAP 7.5-325MG [[place] 7.5-325] 1 tab PO Q4H PRN 3 Days #18 tab 04/03/20 Pantoprazole Sodium [Protonix] 40 mg PO DAILY #30 tablet. 04/03/20 Controlled Substance Measures - Controlled Substance Measures Is patient prescribed a controlled substance at discharge?: No
== END ==
LOC: PNWHC3 12:07
PROVIDERS: ATTEND Specialist
DX: M47.816 Spondylosis without myelopathy or radiculopathy, lumbar region (principal); M51.36 Other intervertebral disc degeneration, lumbar region; G89.29 Other chronic pain; Z91.041 Radiographic dye allergy status; Z88.5 Allergy status to narcotic agent; F17.200 Nicotine dependence, unspecified, uncomplicated
CPT/HCPCS: 72040; G0463; 99211

== ENCOUNTER → 2022-11-10 | Outpatient (CLI) | payer MEDICARE ==
[2022-11-10 15:16] VITALS: BP 136/78; PULSE 110; RESP 18; TEMP 98.8
--- NOTE | 2022-11-10 15:53 | P.PAINPG ---
PQRS Measure Charge Sheet Comment: A 47 yr old female with a history of severe and chronic neck pain secondary to cervical DDD and spondylosis with facet arthropathy without myelopathy presents today for neck pain. Pain level is provoked at 7/10 in intensity, constant, localized in the cervical spine, sharp in character w shooting towards the head. Pain is provoked by rotation, hyperextension, lifting. Pain is alleviated with PT x 8 wks which she is currently in, massage therapy integrated w PT, chiropractic treatments x yrs as needed, heat, medications (Ibu, [place]), topicals, home stretching regimen, repositioning and rest. Interventional pain procedures completed include BL RFA L3-L5 Patient is currently on [place] 7.5/325mg, Ibu Patient denies any side effects of the medication(s), denies excessive drowsiness or sleepiness, denies suicidal ideation and reports that the current pain medication is helping to control the pain and improve activities of daily living. Patient denies any motor or sensory deficits. Patient denies any fever or night sweats, denies any change in the bowel movements or urination. Physical Examination: -Constitutional: Cooperative. Not in acute distress . - Neurologic: Cranial nerve II to XII intact. No focal neurological deficits. - Psychatric: Alert & oriented x 3. Matching mood & appropriate affect. Judgment and insight intact. - Musculoskeletal: Cervical spine: Muscle bulk/ tone/ strength in the bilateral upper extremities normal Vertebral body tenderness to palpation over C3, C6, C7 Spurling test positive Distraction test positive Facet loading test positive TTP Thoracic spine Muscle bulk / tone/ strength in the bilateral paraspinal muscles normal Vertebral body tender to palpation over Facet loading test positive TTP Lumbar spine: Motor bulk/ tone/ strength lower extremities , thigh and legs : 5/5 Deep tendon reflexes : Normal Knee Jerk. Normal Ankle Jerk . Vertebral body tenderness to palpation over Lumbar Facet Loading Test positive Straight Leg Raise: positive at 30 degrees right side/ left side Gaenslen's Test positive Sacral spine : Severe tenderness over the Sacroiliac joint: right side / left side Range of motion: Flexion of the lumbar spine <60 degrees Range of motion: Extension of the lumbar spine <20 degrees Gaenslen's Test positive right side / left side Baljit test: positive right side / left side Thigh Thrust Test positive right side / left side Sacral Thrust Test positive right side / left side Assessment and plan: Chronic neck pain secondary to cervical DDD, spondylosis with facet arthropathy without myelopathy Recommendation of MRI of the cervical spine re: M50.30. May return to clinic within 2 wks for a re evaluation. All questions answered. I have spent less than 30 minutes on patient care today. Dr Zarate was available by phone for the evaluation of this patient. The time was used to review the medical records including relevant urine studies and Prescription history (MAPs), review of the available imaging, evaluation and examination of the patient, coordination of care with the medical staff and if applicable referring physicians, as well as creation of the medical record PQRS Narrative: Smoking Status Current every day smoker Hx Alcohol Use (MH) No Home Medications: Ambulatory Orders Levothyroxine Sodium [Synthroid] 50 mcg PO HS 10/23/15 Zolpidem [Ambien] 10 mg PO HS PRN 10/23/15 Chlorzoxazone [Parafon Forte DSC] 500 mg PO DAILY PRN 03/07/17 Hydroxychloroquine Sulfate [Plaquenil] 200 mg PO BID 03/07/17 Loratadine [Claritin] 10 mg PO DAILY 03/07/17 DULoxetine HCL [Cymbalta] 90 mg PO HS 04/01/20 Estradiol/Norethindrone Acet [Lopreeza 1 mg-0.5 mg Tablet] 1 tab PO DAILY 04/01/20 HYDROcodone/APAP 7.5-325MG [[place] 7.5-325] 1 tab PO Q4H PRN 3 Days #18 tab 04/03/20 Pantoprazole Sodium [Protonix] 40 mg PO DAILY #30 tablet. 04/03/20 Controlled Substance Measures - Controlled Substance Measures Is patient prescribed a controlled substance at discharge?: No
== END ==
LOC: PNWHC3 13:38
PROVIDERS: ATTEND Specialist
DX: M50.30 Other cervical disc degeneration, unspecified cervical region (principal); G89.29 Other chronic pain; M47.812 Spondylosis without myelopathy or radiculopathy, cervical region; F17.200 Nicotine dependence, unspecified, uncomplicated; Z88.5 Allergy status to narcotic agent; Z91.041 Radiographic dye allergy status
CPT/HCPCS: 99211

== ENCOUNTER → 2022-11-14 | Outpatient (CLI) | payer MEDICARE ==
--- NOTE | 2022-11-14 22:04 | MR ---
EXAMINATION TYPE: MR cervical spine wo con DATE OF EXAM: 11/14/2022 INDICATION: Patient age:Female; 47 years old; Reason for study: M50.30 CERVICAL DISC DEGENERATION, UNSP CERVICAL; Cervical disc degeneration, neck pain COMPARISON: Plain film 06/06/2022 TECHNIQUE: Multi planar, multi sequence imaging was performed utilizing: T1-weighted, T2-weighted, an d turbo inversion recovery imaging of the cervical spine. IV Contrast: None FINDINGS: Alignment: The cervical vertebral bodies have preserved heights. There is straightening of the cervic al spine. Bones: Bone signal is within normal limits. No abnormal bone marrow edema on inversion recovery seque nces. Cord: The spinal cord is unremarkable with regards to their signal intensity and morphology. Discs: Intervertebral disc signal is maintained. C2-C3: No significant disc pathology. The spinal canal is patent. No neural foraminal stenosis. C3-C4: No significant disc pathology. The spinal canal is patent. No neural foraminal stenosis. C4-C5: A disc osteophyte complex is present with mild spinal canal stenosis. Bilateral facet and unc overtebral joint arthropathy are present with mild bilateral neural foraminal stenosis. C5-C6: A disc osteophyte complex is present which minimally narrows the ventral subarachnoid space. Bilateral facet and uncovertebral joint arthropathy are present with mild bilateral neural foraminal stenosis. C6-C7: A disc osteophyte complex is present which minimally narrows the ventral subarachnoid space. Bilateral facet and uncovertebral joint arthropathy are present with mild bilateral neural foraminal stenosis. C7-T1: No significant disc pathology. The spinal canal is patent. No neural foraminal stenosis. Other: None. IMPRESSION: 1. No evidence for disc herniation or significant spinal canal stenosis. 2. Mild disc degeneration with associated osteoarthritic changes.
== END | disposition home or self-care (01) ==
LOC: RADMRIMAIN 17:50
PROVIDERS: ATTEND Physician Assistant Medical
DX: M50.321 Other cervical disc degeneration at C4-C5 level (principal); M47.812 Spondylosis without myelopathy or radiculopathy, cervical region
CPT/HCPCS: 72141

== ENCOUNTER → 2022-12-01 | Outpatient (CLI) | payer MEDICARE ==
[2022-12-01 14:24] VITALS: BP 142/88; PULSE 103; RESP 18
--- NOTE | 2022-12-01 14:33 | P.PN ---
Subjective Progress Note Date: 12/01/22 A 47 yr old female with a history of severe and chronic neck pain secondary to cervical DDD and spondylosis with facet arthropathy without myelopathy presents today for neck pain. Pain level is provoked at 7/10 in intensity, constant, localized in the cervical spine, sharp in character w shooting towards the head. Pain is provoked by rotation, hyperextension, lifting. Pain is alleviated with PT x 8 wks which she is currently in, massage therapy integrated w PT, chiropractic treatments x yrs as needed, heat, medications (Ibu, [place]), topicals, home stretching regimen, repositioning and rest. The patient had MRI of the cervical spine and she is here to discuss the results of the MRI Interventional pain procedures completed include BL RFA L3-L5 Patient is currently on [place] 7.5/325mg, Ibu Patient denies any side effects of the medication(s), denies excessive drowsiness or sleepiness, denies suicidal ideation and reports that the current pain medication is helping to control the pain and improve activities of daily living. Patient denies any motor or sensory deficits. Patient denies any fever or night sweats, denies any change in the bowel movements or urination. Physical Examination: -Constitutional: Cooperative. Not in acute distress . - Neurologic: Cranial nerve II to XII intact. No focal neurological deficits. - Psychatric: Alert & oriented x 3. Matching mood & appropriate affect. Judgment and insight intact. - Musculoskeletal: Cervical spine: Muscle bulk/ tone/ strength in the bilateral upper extremities normal Vertebral body tenderness to palpation over C3, C6, C7 Spurling test positive Distraction test positive Facet loading test positive TTP Thoracic spine Muscle bulk / tone/ strength in the bilateral paraspinal muscles normal Vertebral body tender to palpation over Facet loading test positive TTP Lumbar spine: Motor bulk/ tone/ strength lower extremities , thigh and legs : 5/5 Deep tendon reflexes : Normal Knee Jerk. Normal Ankle Jerk . Vertebral body tenderness to palpation over Lumbar Facet Loading Test positive Straight Leg Raise: positive at 30 degrees right side/ left side Gaenslen's Test positive Sacral spine : Severe tenderness over the Sacroiliac joint: right side / left side Range of motion: Flexion of the lumbar spine <60 degrees Range of motion: Extension of the lumbar spine <20 degrees Gaenslen's Test positive right side / left side Baljit test: positive right side / left side Thigh Thrust Test positive right side / left side Sacral Thrust Test positive right side / left side MRI of the cervical spine done at [facility]=multi level cervical degenerative disc disease multilevel cervical facet arthropathy. Assessment and plan: Chronic neck pain secondary to cervical DDD, spondylosis with facet arthropathy without myelopathy Patient could benefit from bilateral cervical medial branch block at C4-5 and C5-6 and if she has positive result will proceed with RFA PQRS Narrative: Smoking Status Current every day smoker Hx Alcohol Use (MH) No Home Medications: Ambulatory Orders Levothyroxine Sodium [Synthroid] 50 mcg PO HS 10/23/15 Zolpidem [Ambien] 10 mg PO HS PRN 10/23/15 Chlorzoxazone [Parafon Forte DSC] 500 mg PO DAILY PRN 03/07/17 Hydroxychloroquine Sulfate [Plaquenil] 200 mg PO BID 03/07/17 Loratadine [Claritin] 10 mg PO DAILY 03/07/17 DULoxetine HCL [Cymbalta] 90 mg PO HS 04/01/20 Estradiol/Norethindrone Acet [Lopreeza 1 mg-0.5 mg Tablet] 1 tab PO DAILY 04/01/20 HYDROcodone/APAP 7.5-325MG [[place] 7.5-325] 1 tab PO Q4H PRN 3 Days #18 tab 04/03 Pantoprazole Sodium [Protonix] 40 mg PO DAILY #30 tablet. 04/03/20 - Controlled Substance Measures Is patient prescribed a controlled substance at discharge?: No Objective - Vital Signs Vital signs: Vital Signs Temp Pulse 103 H 12/01/22 14:18 Resp 18 12/01/22 14:18 BP 142/88 12/01/22 14:18 Pulse Ox 98 12/01/22 14:18 FiO2 Intake & Output 11/30/22 12/01/22 12/01/22 18:59 06:59 18:59 Weight 86.183 kg
== END ==
LOC: PNWHC3 13:57
PROVIDERS: ATTEND Specialist
DX: M50.30 Other cervical disc degeneration, unspecified cervical region (principal); M47.812 Spondylosis without myelopathy or radiculopathy, cervical region; F17.200 Nicotine dependence, unspecified, uncomplicated; G89.29 Other chronic pain; Z88.5 Allergy status to narcotic agent; Z91.041 Radiographic dye allergy status
CPT/HCPCS: 99211

== ENCOUNTER 2023-01-06 11:12 | Day surgery (SDC) | payer MEDICARE ==
[~2023-01-06 11:12] MED LIST: LACTATED RINGERS 1,000 ML IV SCH
[2023-01-06 11:28] VITALS: TEMP 97.8
[2023-01-06] MEDS ORDERED: ROPIVACAINE 5 MG/ML 20 ML AMPULE ONE (11:39)
[2023-01-06] MEDS ORDERED: MIDAZOLAM 2 MG/2 ML VIAL ONE (11:39)
--- NOTE | 2023-01-06 11:53 | P.PCN ---
Date of Procedure: 01/06/23 Description of Procedure: Procedure: Cervical Medial Branch Block at bilateral C4 5, C5 6 #1 Indications: Neck Pain Diagnosis: Cervical spondylosis without myelopathy Imaging: Fluoroscopy was used, images where saved to the medical record Anesthesia: Description of procedure: The patient was seen and examined in the [facility]. Procedure risks and benefits were fully reviewed with patient. The patient understands this is a diagnostic as well as a therapeutic procedure and that the goal of the procedure is to inject medication on to the medial branch or small nerves that go into the facet joints. In this way, we can hopefully identify which of these joints, if any, may be contributing to their pain. Informed consent for the procedure was obtained. The patient was taken into the office fluoroscopy procedure room and placed supine on the table. Vital signs were closely monitored during the procedure. The skin over the area was prepped with chlorhexidine and draped in usual sterile manner. Sterile technique was observed throughout procedure. Under fluoroscopic guidance, the target injection areas of the the above noted level's medial branches were visualized in lateral views. Using biplanar fluoroscopy, a 25 gauge 3.5 inch needle was inserted into proper position where the tip of the needle was located at the midpoint of the quadrangle at each level. After negative aspiration for blood and CSF, 0.5cc of 0.5 % Ropivacaine was injected into each of the targeted areas. The needles were withdrawn intact. No complications were noted during the procedure. The patient tolerated procedure well. The patient was placed in supine position and transferred to the recovery area for observation and remained stable until discharged home. Home discharge instructions given to the patient by the staff. The patient was reexamined prior to discharge. Follow up/plan: The patient will schedule a follow up in the clinic to discuss results and potential RFA. Pain diary given to patient
--- NOTE | 2023-01-06 12:15 | FL ---
Intraoperative/procedural fluoroscopic services were provided for cervicothoracic facet block. Total fluoroscopy time is 27 seconds with a total of 4 submitted images to PACS. Total DAP not available. Please see the operative note for further details.
[2023-01-06] MEDS ORDERED: IV FLUID CONTINUATION 750 ML IV ONE (12:20)
[2023-01-06 12:24] VITALS: BP 118/81; PULSE 97; RESP 16
== END 2023-01-06 12:25 | disposition home or self-care (01) ==
LOC: ORPAIN 11:12
PROVIDERS: ATTEND Hospitalist
DX: M47.812 Spondylosis without myelopathy or radiculopathy, cervical region (principal); E03.9 Hypothyroidism, unspecified; F17.210 Nicotine dependence, cigarettes, uncomplicated; K21.9 Gastro-esophageal reflux disease without esophagitis; Z88.5 Allergy status to narcotic agent
CPT/HCPCS: 64490; 64491 ×2; J2250; J2795

== ENCOUNTER → 2023-01-11 | Outpatient (CLI) | payer MEDICARE ==
--- NOTE | 2023-01-12 19:11 | MM ---
Reason for Exam: Screening (asymptomatic). Last mammogram was performed 2 year(s) and 0 month(s) ago. Patient History: Menarche at age 11. First Full-Term at age 22. Postmenopausal. Patient used Estrogen for 3 years. Currently using Hormonal Contraceptives, for 6 years. Maternal grandmother had breast cancer under age 50. Mother had breast cancer, age 45. Risk Values: Ofelia 5 year model risk: 1.8%. NCI Lifetime model risk: 16.7%. Prior Study Comparison: 11/02/2016 Bilateral Screening Mammogram, [facility]. 09/18/2018 Bilateral Screening Mammogram, [facility]. 12/30/2020 Bilateral Screening Mammogram, [facility]. Tissue Density: There are scattered fibroglandular densities. Findings: Analyzed By CAD. There is no suspicious group of microcalcifications or new suspicious mass in either breast. Overall Assessment: Negative, BI-RAD 1 Management: Screening Mammogram of both breasts in 1 year. . Patient should continue monthly self-breast exams. A clinical breast exam by your physician is recommended on an annual basis. This exam should not preclude additional follow-up of suspicious palpable abnormalities. Note on Ofelia scores and lifetime risk: 1. A Ofelia score greater than 3% is considered moderate risk. If this is the case, consider specialist referral to assess eligibility for a risk reducing agent. 2. If overall lifetime risk for the development of breast cancer is 20% or higher, the patient may qualify for future screening with alternating mammogram and breast MRI. Electronically signed and approved by: Judith Coley M.D. Radiologist
== END | disposition home or self-care (01) ==
LOC: RADMAMWWP 16:51
PROVIDERS: ATTEND Family Medicine
DX: Z12.31 Encounter for screening mammogram for malignant neoplasm of breast (principal); Z78.0 Asymptomatic menopausal state; Z80.3 Family history of malignant neoplasm of breast
CPT/HCPCS: 77063; 77067

== ENCOUNTER → 2023-01-30 | Outpatient (CLI) | payer MEDICARE ==
[2023-01-30 14:32] VITALS: BP 148/84; PULSE 104; RESP 18; TEMP 97.8
--- NOTE | 2023-02-02 07:44 | P.PAINPG ---
PQRS Measure Charge Sheet Comment: A 47 yr old female with a history of severe and chronic neck pain secondary to cervical DDD and spondylosis with facet arthropathy without myelopathy presents today for evaluation s/p BL MBB C4-C5, C5-C6 #1. Pt states she experienced 90 % pain relief x 1 day s/p procedure. Pain level is provoked at 8 /10 in intensity, constant, localized in the cervical spine, tight in character w shooting towards the BL shoulders. Pain is provoked by hyperextension. Pain is alleviated with PT w massage 6 weeks which ended Sep 2021, medications, topical, repositioning and rest. Interventional pain procedures completed include BL MBB C4-C6 x1 Patient is currently on Ibu, [place] Patient denies any side effects of the medication(s), denies excessive drowsiness or sleepiness, denies suicidal ideation and reports that the current pain medication is helping to control the pain and improve activities of daily living. Patient denies any motor or sensory deficits. Patient denies any fever or night sweats, denies any change in the bowel movements or urination. Physical Examination: -Constitutional: Cooperative. Not in acute distress . - Neurologic: Cranial nerve II to XII intact. No focal neurological deficits. - Psychatric: Alert & oriented x 3. Matching mood & appropriate affect. Judgment and insight intact. - Musculoskeletal: Cervical spine: Muscle bulk/ tone/ strength in the bilateral upper extremities normal Vertebral body tenderness to palpation over Spurling test positive Distraction test positive Facet loading test positive TTP over BL C4-C5, C5-C6 Thoracic spine Muscle bulk / tone/ strength in the bilateral paraspinal muscles normal Vertebral body tender to palpation over Facet loading test positive TTP Lumbar spine: Motor bulk/ tone/ strength lower extremities , thigh and legs : 5/5 Deep tendon reflexes : Normal Knee Jerk. Normal Ankle Jerk . Vertebral body tenderness to palpation over Lumbar Facet Loading Test positive Straight Leg Raise: positive at 30 degrees right side/ left side Gaenslen's Test positive Sacral spine : Severe tenderness over the Sacroiliac joint: right side / left side Range of motion: Flexion of the lumbar spine <60 degrees Range of motion: Extension of the lumbar spine <20 degrees Gaenslen's Test positive R / L Baljit test: positive right side / left side Thigh Thrust Test positive R / L Sacral Thrust Test positive R/ L Assessment and plan: Chronic neck pain secondary to cervical DDD, spondylosis with facet arthropathy without myelopathy Recommendation of BL MBB C4-C5, C5-C6 #2. May need a series of injections, up until RFA, for optimal pain relief. Risks, benefits of procedure discussed and pt verbalized understanding. Admits to anticoagulant use or me dical history of diabetes. Protocol for discontinuation/ continuation of medications ian procedure discussed. Minimal anesthesia provided, if clinically indicated, consisting of Versed and Fentanyl. All questions answered. I have spent less than 30 minutes on patient care today. Dr Zarate was available by phone for the evaluation of this patient. The time was used to review the medical records including relevant urine studies and Prescription history (MAPs), review of the available imaging, evaluation and examination of the patient, coordination of care with the medical staff and if applicable referring physicians, as well as creation of the medical record PQRS Narrative: Smoking Status Current every day smoker Hx Alcohol Use (MH) No Home Medications: Ambulatory Orders Levothyroxine Sodium [Synthroid] 50 mcg PO HS 10/23/15 Zolpidem [Ambien] 10 mg PO HS PRN 10/23/15 Chlorzoxazone [Parafon Forte DSC] 500 mg PO DAILY PRN 03/07/17 Hydroxychloroquine Sulfate [Plaquenil] 200 mg PO BID 03/07/17 Loratadine [Claritin] 10 mg PO DAILY 03/07/17 DULoxetine HCL [Cymbalta] 90 mg PO HS 04/01/20 Estradiol/Norethindrone Acet [Lopreeza 1 mg-0.5 mg Tablet] 1 tab PO DAILY 04/01/20 HYDROcodone/APAP 7.5-325MG [[place] 7.5-325] 1 tab PO Q4H PRN 3 Days #18 tab 04/03/20 Pantoprazole Sodium [Protonix] 40 mg PO DAILY #30 tablet. 04/03/20 Controlled Substance Measures - Controlled Substance Measures Is patient prescribed a controlled substance at discharge?: No
== END ==
LOC: PNWHC3 11:05
PROVIDERS: ATTEND Specialist
DX: M50.322 Other cervical disc degeneration at C5-C6 level (principal); M47.812 Spondylosis without myelopathy or radiculopathy, cervical region; G89.29 Other chronic pain; F17.200 Nicotine dependence, unspecified, uncomplicated; Z88.5 Allergy status to narcotic agent; Z91.041 Radiographic dye allergy status
CPT/HCPCS: 99211

== ENCOUNTER 2023-02-10 12:18 | Day surgery (SDC) | payer MEDICARE ==
[2023-02-10 12:34] VITALS: TEMP 98
[2023-02-10] MEDS ORDERED: LIDOCAINE 1% (10MG/ML) FOR IV START INTRADERMA PRN (12:43)
[2023-02-10] MEDS ORDERED: LACTATED RINGERS 1,000 ML IV SCH (12:43)
[2023-02-10] MEDS ORDERED: methylPREDNISolone ACETATE 40 MG/ML 1 ML VIAL ONE (13:11)
[2023-02-10] MEDS ORDERED: fentaNYL (PF) 50 MCG/ML 2 ML AMP ONE (13:11)
[2023-02-10] MEDS ORDERED: MIDAZOLAM 2 MG/2 ML VIAL ONE (13:11)
[2023-02-10] MEDS ORDERED: ROPIVACAINE 5 MG/ML 20 ML AMPULE ONE (13:11)
--- NOTE | 2023-02-10 13:42 | P.PCN ---
Date of Procedure: 02/10/23 Procedure(s) Performed: PREOPERATIVE DIAGNOSIS: 1-Cervical Spondylosis with Facet Arthropathy.without myelopathy. 2-cervical degenerative disc disease POSTOPERATIVE DIAGNOSIS:1-cervical spondylosis with facet arthropathy without myelopathy. 2-cervical degenerative disc disease PROCEDURES: Diagnostic bilateral C4 , C5 , and C6 medial branch blocks, with fluoroscopic guidance (fluoroscopy images available in radiology department ) ( to target the facet joint at bilateral C4- 5 , C5- 6 )#2nd ANESTHESIA: Monitored anesthesia care as per anesthesia department . EBL: Minimal PROCEDURE INDICATION: The patient with neck pain secondary to cervical arthropathy unresponsive to more conservative treatments. PROCEDURE DESCRIPTION / TECHNIQUE: The patient was seen and identified in the preoperative area. Risks, benefits, complications, and alternatives were discussed with the patient, the patient agreed to proceed with the procedure and signed the consent. IV was started. Vital signs remained stable throughout the procedure. Patient was taken to the OR and time out was completed. The patient was placed in the lateral position on the procedure table. The cervical area was prepped and draped in the usual sterile fashion. Critical pause was taken. Vital signs were closely monitored during the procedure. Conscious sedation was used during the procedure to decrease patients anxiety. Using cross-table lateral fluoroscopy, the centroid of the trapezoid of right C4 , C5 and C6, was identified, marked, and localized with 1% lidocaine 1 ml at each level for skin and Sub Q infiltrations . Subsequently, a 22 G 3 spinal needle was advanced guided by fluoroscopy to the centroid of the trapezoid of Right C4 , C5, C6 . Sewell tip position was confirmed at the centroid of the trapezoids of Right C4 , C5 ,C6 with anteroposterior fluoroscopy. Subsequently, 1.5 ml of preservative-free Ropivacaine 0.5% mixed with Depo- Medrol 20 mg and half ml of the mixture was injected after negative aspiration for blood and CSF. Sewell was then removed intact the same procedure was repeated at the left C4 , C5 , and C6 levels. COMPLICATIONS: No acute complications DISPOSITION / PLANS: The patient was placed in a supine position and transferred to the recovery area in a stable condition for observation and was discharged from the recovery room after meeting discharge criteria. Home discharge instructions given to the patient by the staff. The patient was reexamined prior to discharge. The patient will schedule a follow up in the clinic in 2-4 weeks.
[2023-02-10 13:49] VITALS: RESP 16
[2023-02-10] MEDS ORDERED: IV FLUID CONTINUATION 1,000 ML IV ONE (13:49)
[2023-02-10 14:11] VITALS: BP 137/75; PULSE 97
--- NOTE | 2023-02-10 16:56 | FL ---
Intraoperative/procedural fluoroscopic services were provided for bilateral cervical facet block. Tot al fluoroscopy time is 12 seconds with a total of 4 submitted images to PACS. Total DAP 0.48623 Gycm2 . Please see the operative note for further details.
== END 2023-02-10 14:15 | disposition home or self-care (01) ==
LOC: ORPAIN 12:18
PROVIDERS: ATTEND Specialist
DX: M50.323 Other cervical disc degeneration at C6-C7 level (principal); M47.812 Spondylosis without myelopathy or radiculopathy, cervical region; E07.9 Disorder of thyroid, unspecified; F17.200 Nicotine dependence, unspecified, uncomplicated; M79.7 Fibromyalgia; M06.9 Rheumatoid arthritis, unspecified; K21.9 Gastro-esophageal reflux disease without esophagitis; Z79.890 Hormone replacement therapy; Z79.899 Other long term (current) drug therapy
CPT/HCPCS: 81025; 64490; 64491 ×2; J2250; J1030; J3010; J2795

== ENCOUNTER → 2023-03-08 | Outpatient (CLI) | payer MEDICARE ==
--- NOTE | 2023-03-08 14:25 | P.PAINPG ---
PQRS Measure Charge Sheet Comment: A 47 yr old female with a history of severe and chronic neck pain secondary to cervical DDD and spondylosis with facet arthropathy without myelopathy presents today for evaluation s/p BL MBB C4-C5, C5-C6 #2. Pt states she experienced 90 % pain relief x 1 day s/p procedure. Pain level is provoked at 8 /10 in intensity, constant, localized in the cervical spine, tight in character w shooting towards the BL shoulders. Pain is provoked by hyperextension. Pain is alleviated with PT w massage 6 weeks which ended Sep 2021, medications, topical, repositioning and rest. Oswestry axial pain score of 24. Interventional pain procedures completed include BL MBB C4-C6 x1 Patient is currently on Ibu, [place] Patient denies any side effects of the medication(s), denies excessive drowsiness or sleepiness, denies suicidal ideation and reports that the current pain medication is helping to control the pain and improve activities of daily living. Patient denies any motor or sensory deficits. Patient denies any fever or night sweats, denies any change in the bowel movements or urination. Physical Examination: -Constitutional: Cooperative. Not in acute distress . - Neurologic: Cranial nerve II to XII intact. No focal neurological deficits. - Psychatric: Alert & oriented x 3. Matching mood & appropriate affect. Judgment and insight intact. - Musculoskeletal: Cervical spine: Muscle bulk/ tone/ strength in the bilateral upper extremities normal Vertebral body tenderness to palpation over Spurling test positive Distraction test positive Facet loading test positive TTP over BL C4-C5, C5-C6 Thoracic spine Muscle bulk / tone/ strength in the bilateral paraspinal muscles normal Vertebral body tender to palpation over Facet loading test positive TTP Lumbar spine: Motor bulk/ tone/ strength lower extremities , thigh and legs : 5/5 Deep tendon reflexes : Normal Knee Jerk. Normal Ankle Jerk . Vertebral body tenderness to palpation over Lumbar Facet Loading Test positive Straight Leg Raise: positive at 30 degrees right side/ left side Gaenslen's Test positive Sacral spine : Severe tenderness over the Sacroiliac joint: right side / left side Range of motion: Flexion of the lumbar spine <60 degrees Range of motion: Extension of the lumbar spine <20 degrees Gaenslen's Test positive R / L Baljit test: positive right side / left side Thigh Thrust Test positive R / L Sacral Thrust Test positive R/ L Assessment and plan: Chronic neck pain secondary to cervical DDD, spondylosis with facet arthropathy without myelopathy Recommendation of BL RFA C4-C5, C5-C6 #2. Pt exhibited sufficient pain relief w prior facet blocks of the medial branches. Risks, benefits of procedure discussed and pt verbalized understanding. Admits to anticoagulant use or medical history of diabetes. Protocol for discontinuation/ continuation of medications ian procedure discussed. Minimal anesthesia provided, if clinically indicated, consisting of Versed and Fentanyl. All questions answered. I have spent less than 30 minutes on patient care today. Dr Zarate was available by phone for the evaluation of this patient. The time was used to review the medical records including relevant urine studies and Prescription history (MAPs), review of the available imaging, evaluation and examination of the patient, coordination of care with the medical staff and if applicable referring physicians, as well as creation of the medical record PQRS Narrative: Smoking Status Current every day smoker Hx Alcohol Use (MH) No Home Medications: Ambulatory Orders Levothyroxine Sodium [Synthroid] 50 mcg PO HS 10/23/15 Zolpidem [Ambien] 10 mg PO HS PRN 10/23/15 Chlorzoxazone [Parafon Forte DSC] 500 mg PO DAILY PRN 03/07/17 Hydroxychloroquine Sulfate [Plaquenil] 200 mg PO BID 03/07/17 Loratadine [Claritin] 10 mg PO DAILY 03/07/17 DULoxetine HCL [Cymbalta] 90 mg PO HS 04/01/20 Estradiol/Norethindrone Acet [Lopreeza 1 mg-0.5 mg Tablet] 1 tab PO DAILY 04/01/20 HYDROcodone/APAP 7.5-325MG [[place] 7.5-325] 1 tab PO Q4H PRN 3 Days #18 tab 04/03/20 Controlled Substance Measures - Controlled Substance Measures Is patient prescribed a controlled substance at discharge?: No
[2023-03-08 15:24] VITALS: BP 140/87; PULSE 104; RESP 18; TEMP 98.6
== END ==
LOC: PNWHC3 11:10
PROVIDERS: ATTEND Specialist
DX: M50.321 Other cervical disc degeneration at C4-C5 level (principal); M50.322 Other cervical disc degeneration at C5-C6 level; G89.29 Other chronic pain; M47.812 Spondylosis without myelopathy or radiculopathy, cervical region; F17.200 Nicotine dependence, unspecified, uncomplicated; Z88.5 Allergy status to narcotic agent; Z91.041 Radiographic dye allergy status
CPT/HCPCS: 99211

== ENCOUNTER 2023-03-31 11:19 | Day surgery (SDC) | payer MEDICARE ==
[~2023-03-31 11:19] MED LIST changes: +LIDOCAINE 1% (10MG/ML) FOR IV START INTRADERMA PRN
[2023-03-31 11:53] VITALS: RESP 16; TEMP 97.9
[2023-03-31] MEDS ORDERED: MIDAZOLAM 2 MG/2 ML VIAL ONE (11:54)
[2023-03-31] MEDS ORDERED: fentaNYL (PF) 50 MCG/ML 2 ML AMP ONE (11:54)
[2023-03-31] MEDS ORDERED: methylPREDNISolone ACETATE 40 MG/ML 1 ML VIAL ONE (12:02)
[2023-03-31] MEDS ORDERED: ROPIVACAINE 5 MG/ML 20 ML AMPULE ONE (12:02)
--- NOTE | 2023-03-31 12:50 | P.PCN ---
Date of Procedure: 03/31/23 Procedure(s) Performed: PREOPERATIVE DIAGNOSIS: Cervical spondylosis with Facet Arthropathy without myelopathy. POSTOPERATIVE DIAGNOSIS: Cervical spondylosis with Facet Arthropathy without myelopathy. PROCEDURES: Radiofrequency thermocoagulation, bilateral C4, C5, C6 medial branch with Fluroscopy [place](fluoroscopy was available in Radiology department ) (to denervate the facet joint at bilateral C4- 5 , C5- 6 ) ANESTHESIA: Monitored anesthesia care as per anesthesia department . EBL: Minimal PROCEDURE INDICATION: The patient with neck pain secondary to cervical arthropathy who had more than 50% relief of her pain with previous diagnostic cervical medial branch block. PROCEDURE DESCRIPTION / TECHNIQUE: The patient was seen and identified in the preoperative area. Risks, benefits, complications, and alternatives were discussed with the patient, the patient agreed to proceed with the procedure and signed the consent. IV was started. Vital signs remained stable throughout the procedure. Patient was taken to the OR and time out was completed. The patient was placed in the lateral position ( RIGHT SIDE UP )on the procedure table. A pillow was placed under the patients chest to increase the cervical interlaminar space. The cervical area was prepped and draped in the usual sterile fashion. Critical pause was taken. Vital signs were closely monitored during the procedure. Conscious sedation was used during the procedure to decrease patients anxiety. Using cross-table lateral fluoroscopy, the centroid of the trapezoid of right C4, C5, and C6 were identified, marked, and localized with 1% lidocaine. Subsequently, a 20 [id number] radiofrequency cannula with a 10-mm active tip was advanced guided by fluoroscopy to the centroid of the trapezoid of right C4, C5, and C6 . Needle tip position was confirmed at the centroid of the trapezoids of right C4, C5, and C6 with anteroposterior fluoroscopy. Each site then underwent sensory testing at 50 Hz and 0 to 1 volt and motor testing at 2 Hz and 0 to 3 volt with local stimulation, but no radicular symptoms down the arm. Thereafter each sites underwent radiofrequency thermocoagulation at 80 degrees celsius for 90 seconds after injecting 0.5 ml of PF Ropivacaine 0.5 %. After thermocoagulation, 1 ml of the block solution containing Depo-Medrol 20 mg and 5 mL of preservative-free normal saline was injected at the right C4, C5, and C6 levels after negative aspiration of CSF and blood and with no paresthesias. Cannulas were retracted while injecting lidocaine 1% until the needle is out. Skin was cleansed and bandages were applied. Then patient turned to the other lateral position left side up , and I did the RFA on the left side at C4 ,C5, and C6, the exact same way ,we did the RFA on the right side COMPLICATIONS: No acute complications. DISPOSITION / PLANS: The patient was placed in a supine position and transferred to the recovery area in a stable condition for observation and was discharged from the recovery room after meeting discharge criteria. Home dischar ge instructions given to the patient by the staff. The patient was reexamined prior to discharge. The patient will schedule a follow up in the clinic in 2-4 weeks.
[2023-03-31] MEDS ORDERED: KETOROLAC 15 MG/ML 1 ML VIAL ONE ×2 (12:53)
[2023-03-31] MEDS ORDERED: KETOROLAC 15 MG/ML 1 ML VIAL IVP ONE (12:53)
--- NOTE | 2023-03-31 12:59 | FL ---
Intraoperative/procedural fluoroscopic services were provided. Total fluoroscopy time is 20 seconds w ith a total of 11 submitted images to PACS. Total DAP [id number] mGym2. Please see the operative note f or further details.
[2023-03-31] MEDS ORDERED: IV FLUID CONTINUATION 1,000 ML IV ONE (13:02)
[2023-03-31] MEDS ORDERED: HYDROcodone/APAP 7.5-325MG 1 EACH TAB ONE (13:12)
[2023-03-31] MEDS ORDERED: HYDROcodone/APAP 7.5-325MG 1 EACH TAB PO ONE (13:13)
[2023-03-31 13:19] VITALS: PULSE 91
[2023-03-31 13:25] VITALS: BP 143/87
== END 2023-03-31 13:51 | disposition home or self-care (01) ==
LOC: ORPAIN 11:19
PROVIDERS: ATTEND Specialist
DX: M50.322 Other cervical disc degeneration at C5-C6 level (principal); M47.812 Spondylosis without myelopathy or radiculopathy, cervical region; Z88.5 Allergy status to narcotic agent; Z91.041 Radiographic dye allergy status; M79.7 Fibromyalgia; Z79.890 Hormone replacement therapy; Z79.899 Other long term (current) drug therapy
CPT/HCPCS: 81025; 64633; 64634 ×2; J2250; J1030; J3010; J1885; J2795

== ENCOUNTER → 2023-05-03 | Outpatient (CLI) | payer MEDICARE ==
[2023-05-03 13:46] VITALS: BP 134/80; PULSE 100; RESP 16; TEMP 98.2
--- NOTE | 2023-05-03 14:42 | P.PAINPG ---
PQRS Measure Charge Sheet Comment: A 47 yr old female with a history of severe and chronic neck pain secondary to cervical DDD and spondylosis with facet arthropathy without myelopathy presents today for evaluation s/p BL RFA C4-C5, C5-C6. Pt states she experienced 85 % pain relief s/p procedure. Pain level is provoked at 8 /10 in intensity, constant, localized in the cervical spine, tight in character w shooting towards the BL shoulders. Pain is provoked by hyperextension. Pain is alleviated with PT w massage 6 weeks which ended Sep 2021, medications, topical, repositioning and rest. Oswestry axial pain score of 24. Interventional pain procedures completed include BL RFA C4-C6 Patient is currently on Ibu, [place], [place] Patient denies any side effects of the medication(s), denies excessive drowsiness or sleepiness, denies suicidal ideation and reports that the current pain medication is helping to control the pain and improve activities of daily living. Patient denies any motor or sensory deficits. Patient denies any fever or night sweats, denies any change in the bowel movements or urination. Physical Examination: -Constitutional: Cooperative. Not in acute distress . - Neurologic: Cranial nerve II to XII intact. No focal neurological deficits. - Psychatric: Alert & oriented x 3. Matching mood & appropriate affect. Judgment and insight intact. - Musculoskeletal: Cervical spine: Muscle bulk/ tone/ strength in the bilateral upper extremities normal Vertebral body tenderness to palpation over Spurling test positive Distraction test positive Facet loading test positive TTP over BL C4-C5, C5-C6 Thoracic spine Muscle bulk / tone/ strength in the bilateral paraspinal muscles normal Vertebral body tender to palpation over Facet loading test positive TTP Lumbar spine: Motor bulk/ tone/ strength lower extremities , thigh and legs : 5/5 Deep tendon reflexes : Normal Knee Jerk. Normal Ankle Jerk . Vertebral body tenderness to palpation over Lumbar Facet Loading Test positive Straight Leg Raise: positive at 30 degrees right side/ left side Gaenslen's Test positive Sacral spine : Severe tenderness over the Sacroiliac joint: right side / left side Range of motion: Flexion of the lumbar spine <60 degrees Range of motion: Extension of the lumbar spine <20 degrees Gaenslen's Test positive R / L Baljit test: positive right side / left side Thigh Thrust Test positive R / L Sacral Thrust Test positive R/ L Assessment and plan: Chronic neck pain secondary to cervical DDD, spondylosis with facet arthropathy without myelopathy May manage residual pain on her own and return to clinic on an as needed basis. All questions answered. I have spent less than 30 minutes on patient care today. Dr Zarate was available by phone for the evaluation of this patient. The time was used to review the medical records including relevant urine studies and Prescription history (MAPs), review of the available imaging, evaluation and examination of the patient, coordination of care with the medical staff and if applicable referring physicians, as well as creation of the medical record - Pain Location Bilateral Neck Non-Pharmacological Interventions: Exercise, Ice, Inactivity, Position/Reposition Pharmacological Interventions: Epidural, Scheduled Medication, Topical Medication PQRS Narrative: Smoking Status Current every day smoker Hx Alcohol Use (MH) No Home Medications: Ambulatory Orders Levothyroxine Sodium [Synthroid] 50 mcg PO HS 10/23/15 Zolpidem [Ambien] 10 mg PO HS PRN 10/23/15 Chlorzoxazone [Parafon Forte DSC] 500 mg PO DAILY PRN 03/07/17 Hydroxychloroquine Sulfate [Plaquenil] 200 mg PO BID 03/07/17 Loratadine [Claritin] 10 mg PO DAILY 03/07/17 DULoxetine HCL [Cymbalta] 90 mg PO HS 04/01/20 Estradiol/Norethindrone Acet [Lopreeza 1 mg-0.5 mg Tablet] 1 tab PO DAILY 04/01/20 HYDROcodone/APAP 7.5-325MG [[place] 7.5-325] 1 tab PO Q4H PRN 3 Days #18 tab 04/03/20 Controlled Substance Measures - Controlled Substance Measures Is patient prescribed a controlled substance at discharge?: No
== END ==
LOC: PNWHC3 13:24
PROVIDERS: ATTEND Specialist
DX: M50.321 Other cervical disc degeneration at C4-C5 level (principal); M50.322 Other cervical disc degeneration at C5-C6 level; M47.812 Spondylosis without myelopathy or radiculopathy, cervical region; M47.816 Spondylosis without myelopathy or radiculopathy, lumbar region; G89.29 Other chronic pain; F17.200 Nicotine dependence, unspecified, uncomplicated; Z88.5 Allergy status to narcotic agent; Z91.041 Radiographic dye allergy status
CPT/HCPCS: 99211

== ENCOUNTER → 2023-08-17 | Outpatient (CLI) | payer MEDICARE ==
--- NOTE | 2023-08-17 16:28 | CT ---
EXAMINATION TYPE: CT sinus wo con CT DLP: 426 mGycm, Automated exposure control for dose reduction was used. DATE OF EXAM: 08/17/2023 3:46 PM COMPARISON: 09/26/2017.. CLINICAL INDICATION:Female, 47 years old with history of J32.0; , sinus drainage and pain x 6 months, has been through 3 rounds of antibiotics. TECHNIQUE: Multiple thin axial images were obtained through the paranasal sinuses without the use of IV contrast. Additional coronal and sagittal reformatted images were submitted for evaluation. Contrast used: none Oral contrast used: none FINDINGS: Frontal sinuses: Normally developed and aerated. Frontal Recess: Clear Maxillary Sinuses: Normally developed and aerated. Maxillary Infundibula([facility]): Clear, No Chaitanya cells identified. Ethmoid sinuses: Normally developed and aerated. Ethmoidal notch: Unprotected bilateral anterior ethm oidal arteries. Sphenoid sinuses: Normally developed and aerated. There is sellar sphenoid sinus pneumatization witho ut evidence of dehiscence. No dehiscence of carotid canal. No evidence of optic nerve dehiscence wit hin the sphenoid sinus. No evidence of Onodi cells. Sphenoethmoidal recesses: Clear. Nasal septum: Within normal limits.. Nasal Turbinates: Within normal limits. Mastoid air cells & middle ears: The air cells are clear. The middle ears are grossly unremarkable. Modified Soft tissues & Brain: Partially seen without gross abnormality. Globes are intact. Other: Cribriform plate demonstrates symmetric Keros classification type 3 cribriform plate. No evidence of bony dehiscence of skull base. Lamina papyracea is intact without evidence of remote orbital fracture or orbital prolapse into the e thmoid sinus. IMPRESSION: 1. No significant mucosal sinus disease. 2. The ostiomeatal units, frontonasal and sphenoethmoidal recesses are clear.
== END | disposition home or self-care (01) ==
LOC: RADCTMAIN 15:19
PROVIDERS: ATTEND Otolaryngology
DX: J32.0 Chronic maxillary sinusitis (principal)
CPT/HCPCS: 70486

== ENCOUNTER 2023-12-27 08:40 | Day surgery (SDC) | payer MEDICARE ==
[~2023-12-27 08:40] MED LIST changes: -LACTATED RINGERS 1,000 ML IV SCH
[2023-12-27] MEDS: LACTATED RINGERS 1,000 ML IV SCH (09:17)
[2023-12-27] MEDS ORDERED: PROPOFOL 10 MG/ML 20 ML VIAL IV ONE (09:47)
[2023-12-27 09:51] VITALS: RESP 14; TEMP 97.3
--- NOTE | 2023-12-27 10:04 | P.PCN ---
Date of Procedure: 12/27/23 Procedure(s) Performed: BRIEF HISTORY: Patient is a 48-year-old pleasant white female scheduled for an elective colonoscopy as a part of screening for colon cancer. PROCEDURE PERFORMED: Colonoscopy. PREOPERATIVE DIAGNOSIS: Screening for colon cancer. IV sedation per Anesthesia. PROCEDURE: After informed consent was obtained, the patient, was brought into the endoscopy unit. IV sedation was administered by Anesthesia under continuous monitoring. Digital rectal examination was normal. Initially the Olympus CF-160 flexible video colonoscope was then inserted in the rectum, gradually advanced into the cecum without any difficulty. Careful examination was performed as the scope was gradually being withdrawn. Ileocecal valve and the appendiceal orifice were visualized and appeared normal. Prep was fair. Mucosa of the cecum, ascending colon, transverse colon, descending colon, sigmoid colon, and rectum appeared normal. Retroflexion was performed in the rectum and no lesions were seen. The patient tolerated the procedure well. IMPRESSION: Normal-appearing colon from rectum to cecum no evidence of colorectal neoplasia. RECOMMENDATIONS: Findings of this examination were discussed with the patient as well as her family. She was advised to have repeat screening colonoscopy in 10 years..
[2023-12-27 10:43] VITALS: BP 108/72; PULSE 87
== END 2023-12-27 10:39 | disposition home or self-care (01) ==
LOC: ORWHC2ENDO 08:40
PROVIDERS: ATTEND Internal Medicine Gastroenterology
DX: Z12.11 Encounter for screening for malignant neoplasm of colon (principal); E07.9 Disorder of thyroid, unspecified; M06.9 Rheumatoid arthritis, unspecified; M79.7 Fibromyalgia; Z79.890 Hormone replacement therapy; Z88.5 Allergy status to narcotic agent; F17.210 Nicotine dependence, cigarettes, uncomplicated; Z91.041 Radiographic dye allergy status; Z98.890 Other specified postprocedural states; Z79.899 Other long term (current) drug therapy
CPT/HCPCS: 81025; J2704; G0121; 45378

== ENCOUNTER → 2024-01-31 | Outpatient (CLI) | payer MEDICARE ==
--- NOTE | 2024-01-31 16:25 | XR ---
EXAMINATION TYPE: XR lumbar spine 2 or 3V DATE OF EXAM: 01/31/2024 3:30 PM CLINICAL INDICATION:Female, 48 years old with history of M51.36 OTHER INTERVERTEBRAL DISC DEGENERATIO N, LUM; PHH COMPARISON: None TECHNIQUE: XR lumbar spine 2 or 3V - Frontal, lateral and coned in L5-S1 lateral views of the spine. FINDINGS: No evidence of any acute osseous pathology. No evidence of loss of vertebral body height i s seen. There is normal alignment of the lumbar vertebral bodies. Scattered disc space narrowing. Mul tilevel marginal osteophyte formation throughout the visualized spine. There is facet joint arthropat hy throughout the spine. Scattered at least mild neural foraminal stenosis. IMPRESSION: 1. No acute fracture. 2. Mild to moderate multilevel disc degeneration.
== END | disposition home or self-care (01) ==
LOC: RADXRMAIN 15:15
PROVIDERS: ATTEND Physician Assistant Medical
DX: M51.36 Other intervertebral disc degeneration, lumbar region (principal)
CPT/HCPCS: 72100

== ENCOUNTER → 2024-01-31 | Outpatient (CLI) | payer MEDICARE ==
[2024-01-31 15:12] VITALS: BP 136/75; PULSE 97; RESP 16
--- NOTE | 2024-01-31 15:21 | P.PAINPG ---
PQRS Measure Charge Sheet Comment: A 48 yr old female with a history of severe and chronic LBP > 1 yr secondary to DDD and spondylosis with facet arthropathy without myelopathy presents today for evaluation. Pain level is provoked at 7 /10 in intensity, constant, localized in the lumbar spine, predominantly axial, achy in character w shooting L & R of midline. Pain is provoked by standing for periods > 10 min. Pain is alleviated with chiropractic treatments weekly x 10 yrs which she is currently in, massage therapy monthly since Apr 2023, PT w massage 6 weeks which ended Sep 2021, physician guided home exercises every other day since Sep 2021, medications, topical, repositioning and rest. Oswestry axial pain score of 25. Interventional pain procedures completed include BL RFA C4-C6 (Mar 2023), BL RFA L3-L5 Patient is currently on Ibu, [place], [place] Patient denies any side effects of the medication(s), denies excessive joao wsiness or sleepiness, denies suicidal ideation and reports that the current pain medication is helping to control the pain and improve activities of daily living. Patient denies any motor or sensory deficits. Patient denies any fever or night sweats, denies any change in the bowel movements or urination. Physical Examination: -Constitutional: Cooperative. Not in acute distress . - Neurologic: Cranial nerve II to XII intact. No focal neurological deficits. - Psychatric: Alert & oriented x 3. Matching mood & appropriate affect. Judgment and insight intact. - Musculoskeletal: Cervical spine: Muscle bulk/ tone/ strength in the bilateral upper extremities normal Vertebral body tenderness to palpation over Spurling test positive Distraction test positive Facet loading test positive TTP over BL C4-C5, C5-C6 Thoracic spine Muscle bulk / tone/ strength in the bilateral paraspinal muscles normal Vertebral body tender to palpation over Facet loading test positive TTP Lumbar spine: Motor bulk/ tone/ strength lower extremities , thigh and legs : 5/5 Deep tendon reflexes : Normal Knee Jerk. Normal Ankle Jerk . Vertebral body tenderness to palpation over Lumbar Facet Loading Test positive BL L4-L5, L5-S1 Straight Leg Raise: positive at 30 degrees right side/ left side Gaenslen's Test positive Sacral spine : Severe tenderness over the Sacroiliac joint: right side / left side Range of motion: Flexion of the lumbar spine <60 degrees Range of motion: Extension of the lumbar spine <20 degrees Gaenslen's Test positive R / L Baljit test: positive right side / left side Thigh Thrust Test positive R / L Sacral Thrust Test positive R/ L Imaging: Greater than 2 yrs old Assessment and plan: Chronic LBP secondary to DDD, spondylosis with facet arthropathy without myelopathy Recommendation of lumbar x ray M51.36 May need additional testing if indicated. All questions answered. I have spent less than 30 minutes on patient care today. Dr Zarate was available by phone for the evaluation of this patient. The time was used to review the medical records including relevant urine studies and Prescription history (MAPs), review of the available imaging, evaluation and examination of the patient, coordination of care with the medical staff and if applicable referring physicians, as well as creation of the medical record PQRS Narrative: Smoking Status Current every day smoker Hx Alcohol Use (MH) No Home Medications: Ambulatory Orders Levothyroxine Sodium [Synthroid] 50 mcg PO HS 10/23/15 Zolpidem [Ambien] 10 mg PO HS PRN 10/23/15 Hydroxychloroquine Sulfate [Plaquenil] 200 mg PO BID 03/07/17 Loratadine [Claritin] 10 mg PO DAILY 03/07/17 DULoxetine HCL [Cymbalta] 90 mg PO HS 04/01/20 S[place]x 1 tab PO DIRECTED PRN 12/26/23 Controlled Substance Measures - Controlled Substance Measures Is patient prescribed a controlled substance at discharge?: No
== END ==
LOC: PNWHC3 14:25
PROVIDERS: ATTEND Specialist
DX: M51.37 Other intervertebral disc degeneration, lumbosacral region (principal); M47.817 Spondylosis without myelopathy or radiculopathy, lumbosacral region; F17.200 Nicotine dependence, unspecified, uncomplicated; Z88.5 Allergy status to narcotic agent; Z91.041 Radiographic dye allergy status
CPT/HCPCS: 99211

== ENCOUNTER 2024-02-20 16:19 | Emergency (ER) | payer MEDICARE ==
[2024-02-20 16:21] VITALS: RESP 18; TEMP 98.1
--- NOTE | 2024-02-20 16:48 | ED ---
Abdominal Pain HPI - General Chief Complaint: Abdominal Pain Stated Complaint: Abd Pain Time Seen by Provider: 02/20/24 16:47 Source: patient, RN notes reviewed Mode of arrival: ambulatory Limitations: no limitations - History of Present Illness Initial Comments: 48-year-old female presented to ER with a chief complaint of right upper quadrant abdominal pain. She states she started experiencing a crampy abdominal pain on 02-18-2024. She states it has been persistent and now is sharp in nature. She also is endorsing nausea and chills. She states she has tried to eat but had to "choke down her food". She does state food and laying flat m akes her pain worse. She reports normal bowel habits and no urinary complaints. She reports she is taking [id number] Gas-X, ibuprofen and Pepcid without relief. Denies any chest pain, shortness of breath, fevers or peripheral edema. - Related Data Home Medications Medication Instructions Recorded Confirmed Levothyroxine Sodium [Synthroid] 50 mcg PO DAILY 10/23/15 02/20/24 Zolpidem [Ambien] 10 mg PO HS PRN 10/23/15 02/20/24 Hydroxychloroquine Sulfate 200 mg PO BID 03/07/17 02/20/24 [Plaquenil] Loratadine [Claritin] 10 mg PO DAILY 03/07/17 02/20/24 DULoxetine HCL [Cymbalta] 60 mg PO HS 04/01/20 02/20/24 Chlorzoxazone [Parafon Forte DSC] 500 mg PO DAILY PRN 02/20/24 02/20/24 DULoxetine HCL [Cymbalta] 30 mg PO HS 02/20/24 02/20/24 Estradiol/Norethindrone Acet 1 tab PO HS 02/20/24 02/20/24 [Activella 1 mg-0.5 mg Tablet] Fexofenadine/Pseudoephedrine 1 tab PO DAILY PRN 02/20/24 02/20/24 [Carey-D 24 Hour Tablet] HYDROcodone/APAP 7.5-325MG [[place] 1 tab PO Q6H PRN 02/20/24 02/20/24 7.5-325] Ibuprofen [Motrin] 600 mg PO TID PRN 02/20/24 02/20/24 Previous Rx's Medication Instructions Recorded Ondansetron Odt [Zofran Odt] 4 mg PO Q8HR PRN #10 tab 02/20/24 Allergies Allergy/AdvReac Type Severity Reaction Status Date / Time codeine Allergy Chest Verified 02/20/24 19:15 Pain, dyspnea,hives Iodinated Contrast Media Allergy flushed,hot Verified 02/20/24 19:15 [Iodinated Contrast Media - ,nauseated IV Dye] Review of Systems ROS Statement: Those systems with pertinent positive or pertinent negative responses have been documented in the HPI. ROS Other: All systems not noted in ROS Statement are negative. Past Medical History Past Medical History: Fibromyalgia, GERD/Reflux, Rheumatoid Arthritis (RA), Th yroid Disorder Additional Past Medical History / Comment(s): hx kidney stones, seasonal allergies History of Any Multi-Drug Resistant Organisms: None Reported Past Surgical History: Uterine Ablation Additional Past Surgical History / Comment(s): lithotripsy/cystoscopy, pain clinic proc Past Anesthesia/Blood Transfusion Reactions: No Reported Reaction Past Psychological History: No Psychological Hx Reported Smoking Status: Current every day smoker Past Alcohol Use History: None Reported Past Drug Use History: None Reported - Past Family History Mother Family Medical History: Cancer Additional Family Medical History / Comment(s): Breast cancer. General Exam Limitations: no limitations General appearance: alert, in no apparent distress Respiratory exam: Present: normal lung sounds bilaterally. Absent: respiratory distress, wheezes, rales, rhonchi, stridor Cardiovascular Exam: Present: regular rate, normal rhythm, normal heart sounds. Absent: systolic murmur, diastolic murmur, rubs, gallop, clicks GI/Abdominal exam: Present: soft, tenderness (Right upper quadrant/left upper quadrant), normal bowel sounds Extremities exam: Present: normal inspection, full ROM, normal capillary refill. Absent: tenderness, pedal edema, joint swelling, calf tenderness Neurological exam: Present: alert, oriented X3, CN II-XII intact Skin exam: Present: warm, dry, intact, normal color. Absent: rash Course Vital Signs 02/20/24 02/20/24 16:19 20:02 Temperature 98.1 F Pulse Rate 110 H 101 H Respiratory 18 18 Rate Blood Pressure 148/86 136/80 O2 Sat by Pulse 98 99 Oximetry Medical Decision Making - Medical Decision Making Was pt. sent in by a medical professional or institution (INDIO Pritchett, MARKETING COMMUNICATIONS COORDINATOR, urgent care, hospital, or snf...) When possible be specific @ -No Did you speak to anyone other than the patient for history (EMS, parent, family, police, friend...)? What history was obtained from this source @ -No Did you review nursing and triage notes (agree or disagree)? Why? @ -I reviewed and agree with nursing and triage notes Were old charts reviewed (outside hosp., previous admission, EMS record, old EKG, old radiological studies, urgent care reports/EKG's, snf records)? Report findings @ -No old charts were reviewed Differential Diagnosis (chest pain, altered mental status, abdominal pain women, abdominal pain men, vaginal bleeding, weakness, fever, dyspnea, syncope, headache, dizziness, GI bleed, back pain, seizure, CVA, palpatations, mental health, musculoskeletal)? @ -[Differential Abdominal Pain Women: Appendicitis, Cholecystitis, diverticulosis, ischemic bowel, pancreatitis, hepatitis, UTI, gastroenteritis, AAA, incarcerated hernia, bowel obstruction, constipation, inflammatory bowel, hepatitis, peptic ulcer disease, splenic infarction, perforated viscus, vulvitis, ovarian torsion, PID, kidney stone, placenta abruption, this is not meant to be an all-inclusive list EKG interpreted by me (3pts min.). @ -As above X-rays interpreted by me (1pt min.). @ -None done CT interpreted by me (1pt min.). @ -None done U/S interpreted by me (1pt. min.). @ -[Gallbladder ultrasound negative for acute process. What testing was considered but not performed or refused? (CT, X-rays, U/S, labs)? Why? @ -None What meds were considered but not given or refused? Why? @ -None Did you discuss the management of the patient with other professionals (professionals i.e. INDIO Pritchett, MARKETING COMMUNICATIONS COORDINATOR, lab, RT, psych nurse, neonatal social worker, media marketing manager, teacher, ict help desk officer, case management manager)? Give summary @ -No Was smoking cessation discussed for >3mins.? @ -I discussed smoking cessation for greater than 3 minutes. The risk of smoking were discussed with the patient including but not limited to risks of cancer, stroke, coronary artery disease and COPD. Also discussed with patient were multiple methods of quitting smoking. Lastly we discussed the financial cost of smoking. Was critical care preformed (if so, how long)? @ -No Were there social determinants of health that impacted care today? How? (Homelessness, low income, unemployed, alcoholism, drug addiction, transportation, low edu. Level, literacy, decrease access to med. care, shelter, rehab)? @ -No Was there de-escalation of care discussed even if they declined (Discuss DNR or withdrawal of care, Hospice)? DNR status @ -No What co-morbidities impacted this encounter? (DM, HTN, Smoking, COPD, CAD, Cancer, CVA, ARF, Chemo, Hep., AIDS, mental health diagnosis, sleep apnea, morbid obesity)? @ -Obese, smoker Was patient admitted / discharged? Hospital course, mention meds given and route, prescriptions, significant lab abnormalities, going to OR and other pertinent info. @ -Discharge. 48-year-old female presented to the ER with a chief complaint of right upper quadrant abdominal pain. History and physical exam completed. Vitals stable. Exam significant for exquisite tenderness to right upper quadrant with mild radiation to the left quadrant. Normal bowel sounds. Laboratory studies obtained remarkable for elevated lipase at 375 otherwise unimpressive. Urine analysis without evidence of infection. Gallbladder ultrasound negative for acute process. Patient received symptomatic control in the ER. Upon reevaluation, patient resting comfortably on stretcher no signs of acute distress. Results discussed with patient, all questions answered. Zofran prescribed. Advise close follow-up with PCP. Return parameters discussed. Patient discharged ins table condition. Patient verbally expressed understanding and agreement with care plan. Case discussed with ED attending, Dr. Reed. Undiagnosed new problem with uncertain prognosis? @ -No Drug Therapy requiring intensive monitoring for toxicity (Heparin, Nitro, Insulin, Cardizem)? @ -No Were any procedures done? @ -No Diagnosis/symptom? @ -Abdominal pain/nicotine dependence Acute, or Chronic, or Acute on Chronic? @ -Acute Uncomplicated (without systemic symptoms) or Complicated (systemic symptoms)? @ -Uncomplicated Side effects of treatment? @ -No Exacerbation, Progression, or Severe Exacerbation? @ -No Poses a threat to life or bodily function? How? (Chest pain, USA, VT, pneumonia, PE, COPD, DKA, ARF, appy, cholecystitis, CVA, Diverticulitis, Homicidal, Suicid al, threat to staff... and all critical care pts) @ -No - Lab Data Result diagrams: 02/20/24 17:15 02/20/24 18:36 Lab Results 02/20/24 02/20/24 02/20/24 Range/Units 17:15 17:15 17:30 WBC 9.6 (3.8-10.6) k/uL RBC 4.38 (3.80-5.40) m/uL Hgb 14.3 (11.4-16.0) gm/dL Hct 41.3 (34.0-46.0) % MCV 94.2 D (80.0-100.0) fL MCH 32.6 (25.0-35.0) pg MCHC 34.6 (31.0-37.0) g/dL RDW 12.2 (11.5-15.5) % Plt Count 403 (150-450) k/uL MPV 8.4 Neutrophils % 72 % Lymphocytes % 14 % Monocytes % 8 % Eosinophils % 3 % Basophils % 1 % Neutrophils # 6.9 (1.3-7.7) k/uL Lymphocytes # 1.4 (1.0-4.8) k/uL Monocytes # 0.8 (0-1.0) k/uL Eosinophils # 0.3 (0-0.7) k/uL Basophils # 0.1 (0-0.2) k/uL Sodium (137-145) mmol/L Potassium (3.5-5.1) mmol/L Chloride (98-107) mmol/L Carbon Dioxide (22-30) mmol/L Anion Gap mmol/L BUN (7-17) mg/dL Creatinine (0.52-1.04) mg/dL Est GFR (CKD-EPI)AfAm (>60 ml/min/1.73 sqM) Est GFR (CKD-EPI)NonAf (>60 ml/min/1.73 sqM) Glucose (74-99) mg/dL Plasma Lactic Acid Tigre 1.4 (0.7-2.0) mmol/L Calcium (8.4-10.2) mg/dL Total Bilirubin (0.2-1.3) mg/dL AST (14-36) U/L ALT (4-34) U/L Alkaline Phosphatase (38-126) U/L Total Protein (6.3-8.2) g/dL Albumin (3.5-5.0) g/dL Amylase (30-110) U/L Lipase (23-300) U/L Urine Color Colorless Urine Appearance Cloudy H (Clear) Urine pH 6.0 (5.0-8.0) Ur Specific [place] 1.005 (1.001-1.035) Urine Protein Negative (Negative) Urine Glucose (UA) Negative (Negative) Urine Ketones Negative (Negative) Urine Blood Negative (Negative) Urine Nitrite Negative (Negative) Urine Bilirubin Negative (Negative) Urine Urobilinogen <2.0 (<2.0) mg/dL Ur Leukocyte Esterase Negative (Negative) Urine RBC <1 (0-5) /hpf Ur Squamous Epith Cells 10 H (0-4) /hpf 02/20/24 Range/Units 18:36 WBC (3.8-10.6) k/uL RBC (3.80-5.40) m/uL Hgb (11.4-16.0) gm/dL Hct (34.0-46.0) % MCV (80.0-100.0) fL MCH (25.0-35.0) pg MCHC (31.0-37.0) g/dL RDW (11.5-15.5) % Plt Count (150-450) k/uL MPV Neutrophils % % Lymphocytes % % Monocytes % % Eosinophils % % Basophils % % Neutrophils # (1.3-7.7) k/uL Lymphocytes # (1.0-4.8) k/uL Monocytes # (0-1.0) k/uL Eosinophils # (0-0.7) k/uL Basophils # (0-0.2) k/uL Sodium 131 L (137-145) mmol/L Potassium 4.4 (3.5-5.1) mmol/L Chloride 100 (98-107) mmol/L Carbon Dioxide 25 (22-30) mmol/L Anion Gap 6 mmol/L BUN 7 (7-17) mg/dL Creatinine 0.58 (0.52-1.04) mg/dL Est GFR (CKD-EPI)AfAm >90 (>60 ml/min/1.73 sqM) Est GFR (CKD-EPI)NonAf >90 (>60 ml/min/1.73 sqM) Glucose 101 H (74-99) mg/dL Plasma Lactic Acid Tigre (0.7-2.0) mmol/L Calcium 9.8 (8.4-10.2) mg/dL Total Bilirubin 0.3 (0.2-1.3) mg/dL AST 25 (14-36) U/L ALT 20 (4-34) U/L Alkaline Phosphatase 72 (38-126) U/L Total Protein 7.0 (6.3-8.2) g/dL Albumin 4.4 (3.5-5.0) g/dL Amylase 73 (30-110) U/L Lipase 375 H (23-300) U/L Urine Color Urine Appearance (Clear) Urine pH (5.0-8.0) Ur Specific [place] (1.001-1.035) Urine Protein (Negative) Urine Glucose (UA) (Negative) Urine Ketones (Negative) Urine Blood (Negative) Urine Nitrite (Negative) Urine Bilirubin (Negative) Urine Urobilinogen (<2.0) mg/dL Ur Leukocyte Esterase (Negative) Urine RBC (0-5) /hpf Ur Squamous Epith Cells (0-4) /hpf - EKG Data -: EKG Interpreted by Me EKG Comments: EKG taken at 18: 05 showing normal sinus rhythm no acute ST segment or T wave abnormalities. Ventricular rate 93, VA interval 130, QRS duration 80, QT/QTc 351/402. - Radiology Data Radiology results: report reviewed, image reviewed Disposition Clinical Impression: Abdominal pain, Nicotine dependence Disposition: HOME SELF-CARE Condition: Stable Instructions (If sedation given, give patient instructions): Clear Liquid Diet (ED), Abdominal Pain (ED) Additional Instructions: Follow-up with PCP in the next 1 to 2 days. Return to the ER for any new or wor sening concerns. Prescriptions: Ondansetron Odt [Zofran Odt] 4 mg PO Q8HR PRN #10 tab PRN Reason: Nausea Is patient prescribed a controlled substance at d/c from ED?: No Referrals: María Elena Dunham MD [Primary Care Provider] - 1-2 days Time of Disposition: 19:48
[2024-02-20] MEDS: KETOROLAC 15 MG/ML 1 ML VIAL IVP STA (17:17)
[2024-02-20] MEDS: ONDANSETRON 4 MG/2 ML VIAL IVP STA (17:18)
[2024-02-20] MEDS: SODIUM CHLORIDE 0.9% 1,000 ML IV STA (17:18)
[2024-02-20 17:51] LABS: Appearance,Urine Cloudy (Clear); Bilirubin,Urine Negative (Negative); Blood,Urine Negative (Negative); Color,Urine Colorless; Glucose,Urine (UA) Negative (Negative); Ketones,Urine Negative (Negative); Leukocyte Esterase,Urine Negative (Negative); Nitrite,Urine Negative (Negative); Protein,Urine Negative (Negative); RBC,Urine <1 /hpf (0-5); Specific Gravity,Urine 1.005 (1.001-1.035); Squamous Epithelial Cell,Urine 10 /hpf (0-4); Urobilinogen,Urine <2.0 mg/dL (<2.0)
[2024-02-20] MEDS: HYDROmorphone 1 MG/ML 1 ML SYRINGE IVP STA (18:14)
[2024-02-20 18:18] LABS: Basophils # (A) 0.1 k/uL (0-0.2); Basophils % (A) 1 %; Eosinophils # (A) 0.3 k/uL (0-0.7); Eosinophils % (A) 3 %; HCT 41.3 % (34.0-46.0); HGB 14.3 gm/dL (11.4-16.0); Lymphocytes # (A) 1.4 k/uL (1.0-4.8); Lymphocytes % (A) 14 %; MCH 32.6 pg (25.0-35.0); MCHC 34.6 g/dL (31.0-37.0); Mean Platelet Volume 8.4; Monocytes # (A) 0.8 k/uL (0-1.0); Monocytes % (A) 8 %; Neutrophils # (A) 6.9 k/uL (1.3-7.7); Neutrophils % (A) 72 %; Platelet Count 403 k/uL (150-450); RBC 4.38 m/uL (3.80-5.40); RDW 12.2 % (11.5-15.5); WBC 9.6 k/uL (3.8-10.6)
[2024-02-20 18:19] LABS: MCV 94.2 fL (80.0-100.0)
[2024-02-20] MEDS: METOCLOPRAMIDE 5 MG/ML 2 ML VIAL IVP STA (18:47)
--- NOTE | 2024-02-20 18:57 | US ---
EXAMINATION TYPE: US gallbladder DATE OF EXAM: 02/20/2024 COMPARISON: 04/01/2020 CLINICAL INDICATION: Female, 48 years old with history of RUQ abd pain; Patient states midline abdomi nal pain since monday that is getting worse. Patient has history of ulcers. TECHNIQUE: Multiple sonographic images of the right upper quadrant are obtained. 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 Tail is obscured by overlying bowel gas. Liver: wnl as best visualized today Gallbladder: wnl as best seen today Evidence for sonographic Melendez's sign: No CBD: wnl as best visualized Right Kidney: Slightly enlarged. No hydronephrosis or masses seen as best visualized today IMPRESSION: No evidence for acute process.
[2024-02-20 19:21] LABS: ALT 20 U/L (4-34); AST 25 U/L (14-36); African American GFR (CKD) >90 (>60 ml/min/1.73 sqM); Albumin 4.4 g/dL (3.5-5.0); Alkaline Phosphatase 72 U/L (38-126); Amylase 73 U/L (30-110); Anion Gap 6 mmol/L; Blood Urea Nitrogen 7 mg/dL (7-17); Calcium 9.8 mg/dL (8.4-10.2); Carbon Dioxide 25 mmol/L (22-30); Chloride 100 mmol/L (98-107); Glucose 101 mg/dL (74-99); Lipase 375 U/L (23-300); Non-African American GFR(CKD) >90 (>60 ml/min/1.73 sqM); Potassium 4.4 mmol/L (3.5-5.1); Sodium 131 mmol/L (137-145); Total Bilirubin 0.3 mg/dL (0.2-1.3)
[2024-02-20 20:03] VITALS: BP 136/80; PULSE 101
== END 2024-02-20 20:14 | disposition home or self-care (01) ==
LOC: EC 16:19
DX: R10.11 Right upper quadrant pain (principal); F17.200 Nicotine dependence, unspecified, uncomplicated; Z88.5 Allergy status to narcotic agent; Z91.041 Radiographic dye allergy status
CPT/HCPCS: 36415; 93005; 80053; 82150; 83605; 83690; 85025; 81001; 76705; 99284; 99406; 96374; 96375 ×3; 96361; J2765; J2405; J1170; J1885

== ENCOUNTER → 2024-03-15 | Outpatient (CLI) | payer MEDICARE ==
--- NOTE | 2024-03-15 21:15 | MR ---
EXAMINATION TYPE: MR lumbar spine wo con DATE OF EXAM: 03/15/2024 7:23 PM CLINICAL INDICATION:Female, 48 years old with history of M51.36 OTHER INTERVERTEBRAL DISC DEGENERATIO N, LUM; PHH, Low back pain that radiates down both legs, history of laminectomy COMPARISON: 01/31/2024. TECHNIQUE: Multi planar, multi sequence imaging was performed utilizing: T1-weighted, T2-weighted, a nd turbo inversion recovery imaging of the lumbar spine. IV Contrast: cc . (None if empty) FINDINGS: Alignment: The lumbar vertebral bodies have preserved heights and alignment. Cord: The conus medullaris and the distal spinal cord appear unremarkable with regards to their signa l intensity and morphology. Bones/Discs: Mild degeneration changes throughout the spine with osteophyte formation and facet joint arthropathy. Multilevel disc desiccation is present. No abnormal inversion recovery signal to sugges t bony edema. T12-L1: No evidence of significant spinal canal stenosis or neural foraminal stenosis. L1-L2: No evidence of significant spinal canal stenosis or neural foraminal stenosis. L2-L3: No evidence of significant spinal canal stenosis or neural foraminal stenosis. L3-L4: No evidence of significant spinal canal stenosis or neural foraminal stenosis. L4-L5: Disc bulge and facet joint arthropathy result in mild spinal canal and mild bilateral neural f oraminal stenosis. L5-S1: The disc has a rounded posterior morphology without significant spinal canal stenosis. Facet j oint arthropathy with severe right and moderate left neural foraminal stenosis. No significant spinal canal or neural foraminal stenosis in the remainder of the visualized levels. Other findings: None. IMPRESSION: 1. No definitive evidence of disc herniation or significant spinal canal stenosis. 2. Mild disc degeneration with associated osteoarthritic changes. Neural foraminal stenosis worse at L5-S1 with severe right and moderate left neural foraminal stenosis.
== END | disposition home or self-care (01) ==
LOC: RADMRIMAIN 18:26
PROVIDERS: ATTEND Specialist
DX: M51.36 Other intervertebral disc degeneration, lumbar region (principal); M48.061 Spinal stenosis, lumbar region without neurogenic claudication
CPT/HCPCS: 72148

== ENCOUNTER → 2024-03-21 | Outpatient (CLI) | payer MEDICARE ==
[2024-03-21 14:03] VITALS: BP 130/76; PULSE 65; RESP 16; TEMP 97.6
--- NOTE | 2024-03-21 15:07 | P.PAINPG ---
Objective - Vital Signs Vital signs: Vital Signs Temp 97.6 F 03/21/24 14:02 Pulse 65 03/21/24 14:02 Resp 16 03/21/24 14:02 BP 130/76 03/21/24 14:02 Pulse Ox 97 03/21/24 14:02 FiO2 PQRS Measure Charge Sheet Mode of Arrival: Ambulatory Comment: A 48 yr old female with a history of severe and chronic LBP > 1 yr secondary to DDD and spondylosis with facet arthropathy without myelopathy presents today for evaluation. Pt underwent a BL RFA L4-L5/ L5-S1 in Apr 2022 where she experienced 95% pain relief x 1 yr s/p procedure. Pain level is provoked at 7 /10 in intensity, constant, localized in the lumbar spine, predominantly axial, achy in character w shooting L & R of midline. Pain is provoked by standing for periods > 10 min. Pain is alleviated with chiropractic treatments weekly x 10 yrs which she is currently in, massage therapy monthly since Apr 2023, PT w massage 6 weeks which ended Sep 2021, physician guided home exercises every other day since Sep 2021, medications, topical, repositioning and rest. Oswestry axial pain score of 25. Interventional pain procedures completed include BL RFA L4-L5/ L5-S1 (Apr 2022), C4-C5/ C5-C6 (Mar 2023), BL RFA L3-L5 Patient is currently on [place], [place], [place] Patient denies any side effects of the medication(s), denies excessive drowsiness or sleepiness, denies suicidal ideation and reports that the current pain medication is helping to control the pain and improve activities of daily living. Patient denies any motor or sensory deficits. Patient denies any fever or night sweats, denies any change in the bowel movements or urination. Physical Examination: -Constitutional: Cooperative. Not in acute distress . - Neurologic: Cranial nerve II to XII intact. No focal neurological deficits. - Psychatric: Alert & oriented x 3. Matching mood & appropriate affect. Judgment and insight intact. - Musculoskeletal: Cervical spine: Muscle bulk/ tone/ strength in the bilateral upper extremities normal Vertebral body tenderness to palpation over Spurling test positive Distraction test positive Facet loading test positive TTP over BL C4-C5, C5-C6 Thoracic spine Muscle bulk / tone/ strength in the bilateral paraspinal muscles normal Vertebral body tender to palpation over Facet loading test positive TTP Lumbar spine: Motor bulk/ tone/ strength lower extremities , thigh and legs : 5/5 Deep tendon reflexes : Normal Knee Jerk. Normal Ankle Jerk . Vertebral body tenderness to palpation over Lumbar Facet Loading Test positive BL L4-L5, L5-S1 Straight Leg Raise: positive at 30 degrees right side/ left side Gaenslen's Test positive Sacral spine : Severe tenderness over the Sacroiliac joint: right side / left side Range of motion: Flexion of the lumbar spine <60 degrees Range of motion: Extension of the lumbar spine <20 degrees Gaenslen's Test positive R / L Baljit test: positive right side / left side Thigh Thrust Test positive R / L Sacral Thrust Test positive R/ L Imaging: MRI non contrast lumbar spine from 03/15/24 reviewed Assessment and plan: Chronic LBP secondary to L4-S1 mild spinal stenosis, DDD, spondylosis with facet arthropathy without myelopathy Recommendation of BL RFA L4-L5, L5-S1. Exhibited optimal pain relief w prior BL RFA L4-L5/ L5-S1 from Apr 2022. Risks, benefits of procedure discussed and pt verbalized understanding. Protocol for discontinuation/ continuation of medications ian procedure discussed Minimal anesthesia including Fentanyl and Versed if clinically indicated. All questions answered. I have spent less than 30 minutes on patient care today. Dr Zarate was available by phone for the evaluation of this patient. The time was used to review the medical records including relevant urine studies and Prescription history (MAPs), review of the available imaging, evaluation and examination of the patient, coordination of care with the medical staff and if applicable referring physicians, as well as creation of the medical record - Pain Location Lower Back Non-Pharmacological Interventions: Distraction, Exercise, Stretching Pharmacological Interventions: Medication, PRN Medication, Topical Medication PQRS Narrative: Smoking Status Current every day smoker Blood Pressure 130/76 Pain Intensity [Lower Back] 7 Scale Used Numeric (1 - 10) Hx Alcohol Use (MH) No Home Medications: Ambulatory Orders Levothyroxine Sodium [Synthroid] 50 mcg PO DAILY 10/23/15 Zolpidem [Ambien] 10 mg PO HS PRN 10/23/15 Hydroxychloroquine Sulfate [Plaquenil] 200 mg PO BID 03/07/17 Loratadine [Claritin] 10 mg PO DAILY 03/07/17 DULoxetine HCL [Cymbalta] 60 mg PO HS 04/01/20 Chlorzoxazone [Parafon Forte DSC] 500 mg PO DAILY PRN 02/20/24 DULoxetine HCL [Cymbalta] 30 mg PO HS 02/20/24 Estradiol/Norethindrone Acet [Activella 1 mg-0.5 mg Tablet] 1 tab PO HS 02/20/24 Fexofenadine/Pseudoephedrine [Carey-D 24 Hour Tablet] 1 tab PO DAILY PRN 02/20/24 HYDROcodone/APAP 7.5-325MG [[place] 7.5-325] 1 tab PO Q6H PRN 02/20/24 Ibuprofen [Motrin] 600 mg PO TID PRN 02/20/24 Ondansetron Odt [Zofran Odt] 4 mg PO Q8HR PRN #10 tab 02/20/24 Controlled Substance Measures - Controlled Substance Measures Is patient prescribed a controlled substance at discharge?: No
== END ==
LOC: PNWHC3 13:43
PROVIDERS: ATTEND Specialist
DX: M51.37 Other intervertebral disc degeneration, lumbosacral region (principal); M47.817 Spondylosis without myelopathy or radiculopathy, lumbosacral region; M48.07 Spinal stenosis, lumbosacral region; F17.200 Nicotine dependence, unspecified, uncomplicated; Z88.5 Allergy status to narcotic agent; Z91.041 Radiographic dye allergy status
CPT/HCPCS: 99211

== ENCOUNTER 2024-04-05 12:13 | Day surgery (SDC) | payer MEDICARE ==
[2024-04-05] MEDS ORDERED: ROPIVACAINE 5MG/ML 20ML VIAL ONE (12:46)
[2024-04-05] MEDS ORDERED: fentaNYL (PF) 50 MCG/ML 2 ML AMP ONE (12:46)
[2024-04-05] MEDS ORDERED: TRIAMCINOLONE ACETONIDE 40 MG/ML 1 ML VIAL ONE (12:46)
[2024-04-05] MEDS ORDERED: MIDAZOLAM 2 MG/2 ML VIAL ONE (12:46)
--- NOTE | 2024-05-28 18:14 | FL ---
EXAMINATION TYPE: FL guided pain mgmt statistic DATE OF EXAM: 04/25/2024 8:42 AM COMPARISON: Pre Operative Images if available both CT/MRI or plain film CLINICAL INDICATION: Female, 48 years old with history of RADHA RF LUMBAR IN PAIN SERVICE; TECHNIQUE: FL guided pain mgmt statistic, multiple fluoroscopic images provided for procedure. Total fluoroscopy time: 12.4 seconds Total submitted images to PACS: 10 DAP: [id number] mGym2 Gycm2 uGym2 cGycm2 or equivalent. FINDINGS: Fluoroscopic images during injection for pain management demonstrate multilevel degeneration changes throughout the spine. No evidence for fracture. No acute process identified. IMPRESSION: 1. No evidence for intraoperative complication. 2. Please see the operative/procedural note for further details. [facility], , 05/28/2024 6:12 PM
== END 2024-04-05 14:14 ==
LOC: ORPAIN 12:13
DX: M47.816 Spondylosis without myelopathy or radiculopathy, lumbar region (principal); M06.9 Rheumatoid arthritis, unspecified; M79.7 Fibromyalgia; K21.9 Gastro-esophageal reflux disease without esophagitis; F17.210 Nicotine dependence, cigarettes, uncomplicated; Z88.5 Allergy status to narcotic agent; Z91.041 Radiographic dye allergy status; Z79.890 Hormone replacement therapy; Z79.899 Other long term (current) drug therapy
CPT/HCPCS: 99152; 99153

== ENCOUNTER → 2024-05-01 | Outpatient (CLI) | payer MEDICARE ==
[2024-05-01 14:28] VITALS: BP 123/84; PULSE 100; RESP 16; TEMP 97.8
--- NOTE | 2024-05-01 15:24 | P.PAINPG ---
PQRS Measure Charge Sheet Comment: A 48 yr old female with a history of severe and chronic LBP > 1 yr secondary to DDD and spondylosis with facet arthropathy without myelopathy presents today for evaluation s/p BL RFA L4-L5/ L5-S1. Pt states she experienced 50% pain relief s/p procedure. Pain level is provoked at 7 /10 in intensity, constant, localized in the lumbar spine, predominantly axial, sharp in character w shooting L & R of midline. Pain is provoked by standing for periods > 10 min. Pain is alleviated with chiropractic treatments weekly x 10 yrs which she is currently in, massage therapy monthly since Apr 2023, PT w massage 6 weeks which ended Sep 2021, physician guided home exercises every other day since Sep 2021, medications, topical, repositioning and rest. Interventional pain procedures completed include BL RFA L4-L5/ L5-S1 (Apr 2022), C4-C5/ C5-C6 (Mar 2023), BL RFA L3-L5 x2 (Apr 2022, Mar 2024) Patient is currently on [place]bu, [place], [place] Patient denies any side effects of the medication(s), denies excessive drowsiness or sleepiness, denies suicidal ideation and reports that the current pain medication is helping to control the pain and improve activities of daily living. Patient denies any motor or sensory deficits. Patient denies any fever or night sweats, denies any change in the bowel movements or urination. Physical Examination: -Constitutional: Cooperative. Not in acute distress . - Neurologic: Cranial nerve II to XII intact. No focal neurological deficits. - Psychatric: Alert & oriented x 3. Matching mood & appropriate affect. Judgment and insight intact. - Musculoskeletal: Cervical spine: Muscle bulk/ tone/ strength in the bilateral upper extremities normal Vertebral body tenderness to palpation over Spurling test positive Distraction test positive Facet loading test positive TTP over BL C4-C5, C5-C6 Thoracic spine Muscle bulk / tone/ strength in the bilateral paraspinal muscles normal Vertebral body tender to palpation over Facet loading test positive TTP Lumbar spine: Motor bulk/ tone/ strength lower extremities , thigh and legs : 5/5 Deep tendon reflexes : Normal Knee Jerk. Normal Ankle Jerk . Vertebral body tenderness to palpation over Lumbar Facet Loading Test positive BL L4-L5, L5-S1 Straight Leg Raise: positive at 30 degrees right side/ left side Gaenslen's Test positive Sacral spine : Severe tenderness over the Sacroiliac joint: right side / left side Range of motion: Flexion of the lumbar spine <60 degrees Range of motion: Extension of the lumbar spine <20 degrees Gaenslen's Test positive R / L Baljit test: positive right side / left side Thigh Thrust Test positive R / L Sacral Thrust Test positive R/ L Imaging: MRI non contrast lumbar spine from 03/15/24 reviewed Assessment and plan: Chronic LBP secondary to L4-S1 mild spinal stenosis, DDD, spondylosis with facet arthropathy without myelopathy Recommendation of follow up w orthopedic surgeon to explore additional treatment options. Per documentation, pt's PCP has referred pt to Dr Padilla in 2021. All questions answered. I have spent less than 30 minutes on patient care today. Dr Zarate was available by phone for the evaluation of this patient. The time was used to review the medical records including relevant urine studies and Prescription history (MAPs), review of the available imaging, evaluation and examination of the patient, coordination of care with the medical staff and if applicable referring physicians, as well as creation of the medical record PQRS Narrative: Smoking Status Current every day smoker Hx Alcohol Use (MH) No Home Medications: Ambulatory Orders Levothyroxine Sodium [Synthroid] 50 mcg PO DAILY 10/23/15 Zolpidem [Ambien] 10 mg PO HS PRN 10/23/15 Hydroxychloroquine Sulfate [Plaquenil] 200 mg PO BID 03/07/17 Loratadine [Claritin] 10 mg PO DAILY 03/07/17 DULoxetine HCL [Cymbalta] 60 mg PO HS 04/01/20 Chlorzoxazone [Parafon Forte DSC] 500 mg PO DAILY PRN 02/20/24 DULoxetine HCL [Cymbalta] 30 mg PO HS 02/20/24 Estradiol/Norethindrone Acet [Activella 1 mg-0.5 mg Tablet] 1 tab PO HS 02/20/24 Fexofenadine/Pseudoephedrine [Carey-D 24 Hour Tablet] 1 tab PO DAILY PRN 02/20/24 HYDROcodone/APAP 7.5-325MG [[place] 7.5-325] 1 tab PO Q6H PRN 02/20/24 Ibuprofen [Motrin] 600 mg PO TID PRN 02/20/24 Ondansetron Odt [Zofran Odt] 4 mg PO Q8HR PRN #10 tab 02/20/24 Controlled Substance Measures - Controlled Substance Measures Is patient prescribed a controlled substance at discharge?: No
== END ==
LOC: PNWHC3 14:01
PROVIDERS: ATTEND Specialist
DX: M47.816 Spondylosis without myelopathy or radiculopathy, lumbar region
CPT/HCPCS: 99211

== ENCOUNTER → 2024-06-21 | Outpatient (CLI) | payer MEDICARE ==
--- NOTE | 2024-06-24 10:22 | MM ---
Reason for Exam: Screening (asymptomatic). Last mammogram was performed 1 year(s) and 5 month(s) ago. Patient History: Menarche at age 11. First Full-Term at age 22. Postmenopausal. Patient used Estrogen for 3 years. Currently using Hormonal Contraceptives, for 6 years. Maternal grandmother had breast cancer under age 50. Mother had breast cancer, age 45. Risk Values: Ofelia 5 year model risk: 1.8%. NCI Lifetime model risk: 16.4%. Prior Study Comparison: 09/18/2018 Bilateral Screening Mammogram, [facility]. 12/30/2020 Bilateral Screening Mammogram, [facility]. 01/11/2023 Bilateral MG 3D screening mammo w/cad, [facility]. Tissue Density: There are scattered areas of fibroglandular density. Findings: Analyzed By CAD. Right breast: There is no suspicious group of microcalcifications or new suspicious mass. Left breast: There is no suspicious group of microcalcifications or new suspicious mass. Overall Assessment: Negative, BI-RAD 1 Management: Screening Mammogram of both breasts in [address] [facility] will attempt to contact patient to return for supplemental views and ultrasound if indicated. Patient should continue monthly self-breast exams. A clinical breast exam by your physician is recommended on an annual basis. This exam should not preclude additional follow-up of suspicious palpable abnormalities. Note on Ofelia scores and lifetime risk: 1. A Ofelia score greater than 3% is considered moderate risk. If this is the case, consider specialist referral to assess eligibility for a risk reducing agent. 2. If overall lifetime risk for the development of breast cancer is 20% or higher, the patient may qualify for future screening with alternating mammogram and breast MRI. [facility], , 06/24/2024 10:18 AM. Electronically signed and approved by: Juanjo Carranza DO
== END | disposition home or self-care (01) ==
LOC: RADMAMWWP 15:54
PROVIDERS: ATTEND Family Medicine
CPT/HCPCS: 77063; 77067